=== PATIENT | male | born 1940 | race Caucasian/White ===

== ENCOUNTER 2020-08-12 12:53 | Emergency (ER) | payer MEDICARE, OTHER ==
[~2020-08-12] VITALS: Ht 172 cm; Wt 104.0 kg
--- NOTE | 2020-08-12 12:55 | ED General ---
General Stated Complaint: GEN WEAKNESS; VOMITING History of Present Illness Date Seen by Provider: Aug 12, 2020 Time Seen by Provider: 12:54 Initial Comments 80-year-old male presents with generalized weakness and vomiting. Patient has had generalized weakness for at least a year but reports is little bit worse today. Patient drinks daily but today he is already consumed half a "jug" patient also reports that earlier this morning he was out trimming trees. Patient had 1 episode of vomiting in route with EMS. He denies abdominal pain, no chest pain, focal weakness. No reports of fever cough or other systemic complaints. Allergies and Home Medications Allergies Coded Allergies: No Known Drug Allergies (Unverified , 08/12/20) Home Medications Ondansetron 4 Mg Tab.rapdis, 4 MG PO Q6H PRN for NAUSEA/VOMITING Prescribed by: SHANEKA ROCHA on 08/12/20 3030 Patient Home Medication List Home Medication List Reviewed: Yes Review of Systems Review of Systems Constitutional: see HPI; No chills, No fever; malaise, weakness EENTM: no symptoms reported Respiratory: no symptoms reported Cardiovascular: no symptoms reported Gastrointestinal: No abdominal pain; nausea, vomiting Genitourinary: no symptoms reported Musculoskeletal: see HPI Skin: no symptoms reported Psychiatric/Neurological: No Symptoms Reported Past Kteaoyv-Wfrntk-Ltxqfv Hx Past Med/Social Hx: Reviewed Nursing Past Med/Soc Hx Physical Exam Vital Signs Vital Signs - First Documented 08/12/20 12:53 Temp 35.3 Pulse 76 Resp 18 B/P (MAP) 165/79 (107) Pulse Ox 93 O2 Delivery Room Air Capillary Refill : Height, Weight, BMI Height: '" Weight: lbs. oz. 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 Progress/Results/Core Measures Suspected Sepsis SIRS Temperature: Pulse: Respiratory Rate: Laboratory Tests 08/12/20 12:56: White Blood Count 8.0 Blood Pressure / Mean: Laboratory Tests 08/12/20 12:56: Creatinine 0.96, Platelet Count 234, Total Bilirubin 1.6H Results/Orders Lab Results Laboratory Tests Test 08/12/20 12:56 Range/Units White Blood Count 8.0 4.3-11.0 10^3/uL Red Blood Count 4.19 L 4.35-5.85 10^6/uL Hemoglobin 14.8 13.3-17.7 G/DL Hematocrit 42 40-54 % Mean Corpuscular Volume 101 H 80-99 FL Mean Corpuscular Hemoglobin 35 H 25-34 PG Mean Corpuscular Hemoglobin Concent 35 32-36 G/DL Red Cell Distribution Width 12.5 10.0-14.5 % Platelet Count 234 130-400 10^3/uL Mean Platelet Volume 9.0 7.4-10.4 FL Immature Granulocyte % (Auto) 1 % Neutrophils (%) (Auto) 66 42-75 % Lymphocytes (%) (Auto) 24 12-44 % Monocytes (%) (Auto) 8 0-12 % Eosinophils (%) (Auto) 1 0-10 % Basophils (%) (Auto) 1 0-10 % Neutrophils # (Auto) 5.3 1.8-7.8 X 10^3 Lymphocytes # (Auto) 1.9 1.0-4.0 X 10^3 Monocytes # (Auto) 0.6 0.0-1.0 X 10^3 Eosinophils # (Auto) 0.1 0.0-0.3 10^3/uL Basophils # (Auto) 0.1 0.0-0.1 10^3/uL Immature Granulocyte # (Auto) 0.0 0.0-0.1 10^3/uL Sodium Level 139 135-145 MMOL/L Potassium Level 2.8 L 3.6-5.0 MMOL/L Chloride Level 100 98-107 MMOL/L Carbon Dioxide Level 22 21-32 MMOL/L Anion Gap 17 H 5-14 MMOL/L Blood Urea Nitrogen 4 L 7-18 MG/DL Creatinine 0.96 0.60-1.30 MG/DL Estimat Glomerular Filtration Rate > 60 BUN/Creatinine Ratio 4 Glucose Level 171 H 70-105 MG/DL Calcium Level 8.8 8.5-10.1 MG/DL Corrected Calcium 8.8 8.5-10.1 MG/DL Total Bilirubin 1.6 H 0.1-1.0 MG/DL Aspartate Amino Transf (AST/SGOT) 63 H 5-34 U/L Alanine Aminotransferase (ALT/SGPT) 35 0-55 U/L Alkaline Phosphatase 139 H 40-136 U/L Troponin I < 0.30 <0.30 NG/ML Total Protein 6.8 6.4-8.2 GM/DL Albumin 4.0 3.2-4.5 GM/DL Lipase 16 8-78 U/L Serum Alcohol 37 H <10 MG/DL My Orders Orders - ROCHA,SHANEKA L DO Cbc With Automated Diff (08/12/20 12:55) Comprehensive Metabolic Panel (08/12/20 12:55) Lipase (08/12/20 12:55) Acute Abd Series (08/12/20 12:55) Troponin I Fs (08/12/20 12:55) Ekg Tracing (08/12/20 12:55) Monitor-Rhythm Ecg Trace Only (08/12/20 12:55) Alcohol (08/12/20 12:55) Ondansetron Injection (Zofran Injectio (08/12/20 13:15) Lactated Ringers (Lr 1000 Ml Iv Solution (08/12/20 13:03) Famotidine Injection (Pepcid Injection) (08/12/20 13:03) Potassium Chloride (Tablet) (K Dur Table (08/12/20 13:45) Medications Given in ED Vital Signs/I&O 08/12/20 08/12/20 12:53 14:04 Temp 35.3 35.3 Pulse 76 72 Resp 18 18 B/P (MAP) 165/79 (107) 152/68 Pulse Ox 93 96 O2 Delivery Room Air Room Air Capillary Refill : Progress Note : Time: 13:45 Progress Note Patient with elevated alcohol level. Patient with low sodium, patient with generalized weakness but admits to not eating a lot and drinking daily. Patient symptoms likely a result of his chronic alcohol use. I recommended he follow-up with his primary care provider for further evaluation and treatment ECG Initial ECG Impression Date: Aug 12, 2020 Initial ECG Impression Time: 12:53 Initial ECG Rate: 70 Initial ECG Rhythm: Normal Sinus Initial ECG Intervals: VA (247) Initial ECG Impression: Nonspecific Changes Comment no acute finding, prolonged VA Diagnostic Imaging Diagonstic Imaging: Xray Plain Films/CT/US/NM/MRI: abdomen Comments ACUTE ABD SERIES INDICATION: Nausea, vomiting, increased generalized weakness. TECHNIQUE: Single-view chest with supine and upright radiographs of the abdomen. CORRELATION STUDY: None. FINDINGS: Heart size is enlarged. Mediastinum is prominent. However, no evidence for underlying vascular congestion. No pulmonary infiltrate. Surgical clips at the base of the neck on the right. Imaging of the abdomen is limited on technical basis. There does appear to be some gas within the stomach. A few gas-filled loops of small bowel in the central aspect of the abdomen. There does appear to be some gas within the colon. Surgical changes with hardware superimposed over the left aspect of L2 and L3 levels. Advanced degenerative changes of the lumbar spine with S-type scoliotic curvature present. Metallic rings in the right lower quadrant, likely reflective of prior inguinal hernia repair. IMPRESSION: 1. Cardiac enlargement without failure. 2. Prominent gas-filled loops of bowel within the left midabdomen may very well be reflective of underlying ileus pattern. Early or partial obstructive process is not completely excluded. If clinically warranted, short-term follow-up imaging is recommended for reassessment. Reviewed: Reviewed by Me, Reviewed/Discussed Departure Impression Primary Impression: Chronic alcohol use Additional Impressions: Hypokalemia Generalized weakness Disposition: HOME, SELF-CARE Condition: Stable Departure-Patient Inst. Patient Instructions: Generalized Weakness, Alcohol Use - When Is Drinking a Problem?, Alcohol Use Disorder ED, Hypokalemia Add. Discharge Instructions: Follow-up with your primary care provider and 2 to 3 days for continuation of care and recheck of today's symptoms Scripts Ondansetron (Ondansetron Odt) 4 Mg Tab.rapdis 4 MG PO Q6H PRN for NAUSEA/VOMITING, #20 TAB 0 Refills Prov: SHANEKA ROCHA DO 08/12/20 SHANEKA ROCHA DO Aug 12, 2020 12:55
[2020-08-12] MEDS ORDERED: FAMOTIDINE 20MG/2ML IV (PEPCID) IV STA (13:03)
[2020-08-12] MEDS ORDERED: LACTATED RINGERS 1,000 ML IV STA (13:03)
[2020-08-12 13:10] LABS: BASOPHILS # (AUTO) 0.1 10^3/uL (0.0-0.1); BASOPHILS % (AUTO) 1 % (0-10); EOSINOPHILS # (AUTO) 0.1 10^3/uL (0.0-0.3); EOSINOPHILS % (AUTO) 1 % (0-10); HEMATOCRIT 42 % (40-54); HEMOGLOBIN 14.8 G/DL (13.3-17.7); LYMPHOCYTES # (AUTO) 1.9 X 10^3 (1.0-4.0); LYMPHOCYTES % (AUTO) 24 % (12-44); MEAN CORPUSCULAR HEMOGLOBIN 35 PG (25-34); MEAN CORPUSCULAR HGB CONC 35 G/DL (32-36); MEAN CORPUSCULAR VOLUME 101 FL (80-99); MONOCYTES # (AUTO) 0.6 X 10^3 (0.0-1.0); MONOCYTES % (AUTO) 8 % (0-12); NEUTROPHILS # (AUTO) 5.3 X 10^3 (1.8-7.8); NEUTROPHILS % (AUTO) 66 % (42-75); PLATELET COUNT 234 10^3/uL (130-400)
[2020-08-12] MEDS ORDERED: ONDANSETRON 4 MG/2 ML (SDV) Z0FRAN IVP ONE (13:15)
[2020-08-12 13:26] LABS: CARBON DIOXIDE 22 MMOL/L (21-32); CHLORIDE 100 MMOL/L (98-107); POTASSIUM 2.8 MMOL/L (3.6-5.0); SODIUM 139 MMOL/L (135-145)
[2020-08-12 13:27] LABS: ALANINE AMINOTRANSFERASE 35 U/L (0-55); ALKALINE PHOSPHATASE 139 U/L (40-136); BILIRUBIN,TOTAL 1.6 MG/DL (0.1-1.0); BUN/CREATININE RATIO 4; CALCIUM 8.8 MG/DL (8.5-10.1); CREATININE SERUM 0.96 MG/DL (0.60-1.30); GFR ESTIMATED > 60; GLUCOSE 171 MG/DL (70-105); LIPASE 16 U/L (8-78); TOTAL PROTEIN 6.8 GM/DL (6.4-8.2)
--- NOTE | 2020-08-12 13:32 | Diagnostic Imaging Report ---
INDICATION: Nausea, vomiting, increased generalized weakness. TECHNIQUE: Single-view chest with supine and upright radiographs of the abdomen. CORRELATION STUDY: None. FINDINGS: Heart size is enlarged. Mediastinum is prominent. However, no evidence for underlying vascular congestion. No pulmonary infiltrate. Surgical clips at the base of the neck on the right. Imaging of the abdomen is limited on technical basis. There does appear to be some gas within the stomach. A few gas-filled loops of small bowel in the central aspect of the abdomen. There does appear to be some gas within the colon. Surgical changes with hardware superimposed over the left aspect of L2 and L3 levels. Advanced degenerative changes of the lumbar spine with S-type scoliotic curvature present. Metallic rings in the right lower quadrant, likely reflective of prior inguinal hernia repair. IMPRESSION: 1. Cardiac enlargement without failure. 2. Prominent gas-filled loops of bowel within the left midabdomen may very well be reflective of underlying ileus pattern. Early or partial obstructive process is not completely excluded. If clinically warranted, short-term follow-up imaging is recommended for reassessment. Dictated by: Dictated on workstation # [id number]
[2020-08-12] MEDS ORDERED: KCL 20 MEQ TAB (K-DUR) PO ONE (13:45)
[2020-08-12] MEDS ORDERED: METOCLOPRAMIDE INJ 10 MG/2 ML (REGLAN) IVP STA (13:55)
[2020-08-12] MEDS ORDERED: ONDA4TAB11 PO (13:57)
[2020-08-12 14:04] VITALS: BP 152/68
== END 2020-08-12 13:50 | disposition home or self-care (01) ==
LOC: EDUNIT# 12:53 → ER FS 12:57
DX: E87.6 Hypokalemia (principal); R53.1 Weakness; E66.9 Obesity, unspecified; Z72.89 Other problems related to lifestyle
CPT/HCPCS: 36415; 74022; 80053; 83690; 84484; 85025; 93041; G0480; 80320; 93005

== ENCOUNTER 2020-08-13 08:55 | Emergency (ER) | payer MEDICARE, OTHER ==
[~2020-08-13] VITALS: Ht 175 cm; Wt 99.7 kg
[~2020-08-13 08:55] MED LIST: ONDA4TAB11 PO
--- NOTE | 2020-08-13 09:14 | ED General ---
General Stated Complaint: WEAKNESS Source of Information: Patient Exam Limitations: No Limitations History of Present Illness Date Seen by Provider: Aug 13, 2020 Time Seen by Provider: 09:00 Initial Comments Patient is a 80-year-old male who presents to the emergency department today with a chief complaint of feeling dizzy, lightheaded and off-balance. He complains of generalized weakness and inability to ambulate without feeling like he might fall. Patient states that the symptoms have been coming on for the last several days up to a month. He was seen at [facility] yesterday. His states that his alcohol level was a little bit high and his potassium was little bit low. She states he got some fluids and a little potassium replacement but was not much better on discharge. She states he actually had to crawl to a chair from their front door after he made up the steps. He has been sitting in the chair ever since. He denies feeling short of breath or chest pain. He states occasionally he feels a little chest "tightness". He denies fevers chills cough or congestion. No abdominal pain, nausea, vomiting or diarrhea. No black or bloody stools. He states that he drinks daily blackberry isac. He drinks what sounds like up to a pint a day. He has been doing this for a couple of months. Patient denies any real depressive thoughts but seems sad about the fact that he is not as active as he used to be. He takes medicines for hypothyroidism as well as hypertension and high c holesterol. His primary care physician is in [facility]. The patient states that he sees him every 6 months and his next visit is in September. All other review of systems reviewed and negative except as stated above. Timing/Duration: Constant, Getting Worse Severity: Severe Modifying Factors: worse with Movement; improves with Rest Associated Systoms: Loss of Appetite, Nausea/Vomiting (Vomiting this morning) Allergies and Home Medications Allergies Coded Allergies: No Known Drug Allergies (Unverified , 08/12/20) Home Medications Ondansetron 4 Mg Tab.rapdis, 4 MG PO Q6H PRN for NAUSEA/VOMITING Prescribed by: SHANEKA ROCHA on 08/12/20 0315 Patient Home Medication List Home Medication List Reviewed: Yes Review of Systems Review of Systems Constitutional: see HPI EENTM: no symptoms reported Respiratory: no symptoms reported Cardiovascular: chest pain (Occasional "chest tightness") Gastrointestinal: nausea, vomiting Genitourinary: no symptoms reported Musculoskeletal: no symptoms reported Skin: no symptoms reported All Other Systems Reviewed Negative Unless Noted: Yes Past Kuyyvtd-Pvpsdh-Ymmess Hx Patient Social History Alcohol Beverage of Choice: Whiskey Type Used: Smokeless Tobacco 2nd Hand Smoke Exposure: No Recent Hopitalizations: No Seasonal Allergies Seasonal Allergies: No Past Medical History Surgeries: Yes (SHOULDER, FOOT, KNEE SX, INGUINAL HERNIA REPAIR) Orthopedic, Thyroidectomy, Tonsillectomy Respiratory: No Cardiac: No Neurological: Yes Stroke Genitourinary: No Gastrointestinal: No Musculoskeletal: No Endocrine: No HEENT: No Cancer: No Psychosocial: No Integumentary: No Blood Disorders: No Physical Exam Vital Signs Vital Signs - First Documented 08/13/20 09:00 Temp 36.6 Pulse 60 Resp 12 B/P (MAP) 151/70 (97) Pulse Ox 95 O2 Delivery Room Air Capillary Refill : Height, Weight, BMI Height: '" Weight: lbs. oz. 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 Norm as Tested, Other (No asterixis is noted; ataxia is noted with the left leg [id number] and past-pointing with the left hand [id number]) Skin: Normal Color, Warm/Dry Progress/Results/Core Measures Suspected Sepsis SIRS Temperature: Pulse: Respiratory Rate: Laboratory Tests 08/13/20 09:04: White Blood Count 14.7H Blood Pressure / Mean: Laboratory Tests 08/13/20 09:04: Creatinine 1.04, Platelet Count 213, Total Bilirubin 4.5#H 08/13/20 10:18: INR Comment 1.1 Results/Orders Lab Results Laboratory Tests Test 08/13/20 09:04 08/13/20 09:23 08/13/20 10:18 Range/Units White Blood Count 14.7 H 4.3-11.0 10^3/uL Red Blood Count 4.06 L 4.30-5.52 10^6/uL Hemoglobin 14.4 13.3-17.7 g/dL Hematocrit 41 40-54 % Mean Corpuscular Volume 101 H 80-99 fL Mean Corpuscular Hemoglobin 36 H 25-34 pg Mean Corpuscular Hemoglobin Concent 35 32-36 g/dL Red Cell Distribution Width 12.2 10.0-14.5 % Platelet Count 213 130-400 10^3/uL Mean Platelet Volume 10.0 9.0-12.2 fL Immature Granulocyte % (Auto) 1 % Neutrophils (%) (Auto) 87 H 42-75 % Lymphocytes (%) (Auto) 5 L 12-44 % Monocytes (%) (Auto) 7 0-12 % Eosinophils (%) (Auto) 0 0-10 % Basophils (%) (Auto) 0 0-10 % Neutrophils # (Auto) 12.8 H 1.8-7.8 10^3/uL Lymphocytes # (Auto) 0.8 L 1.0-4.0 10^3/uL Monocytes # (Auto) 1.0 0.0-1.0 10^3/uL Eosinophils # (Auto) 0.0 0.0-0.3 10^3/uL Basophils # (Auto) 0.0 0.0-0.1 10^3/uL Immature Granulocyte # (Auto) 0.1 0.0-0.1 10^3/uL Neutrophils % (Manual) 87 % Lymphocytes % (Manual) 4 % Monocytes % (Manual) 5 % Eosinophils % (Manual) 0 % Basophils % (Manual) 0 % Band Neutrophils 4 % Blood Morphology Comment NORMAL Sodium Level 139 135-145 MMOL/L Potassium Level 3.5 L 3.6-5.0 MMOL/L Chloride Level 101 98-107 MMOL/L Carbon Dioxide Level 25 21-32 MMOL/L Anion Gap 13 5-14 MMOL/L Blood Urea Nitrogen 6 L 7-18 MG/DL Creatinine 1.04 0.60-1.30 MG/DL Estimat Glomerular Filtration Rate > 60 BUN/Creatinine Ratio 6 Glucose Level 145 H 70-105 MG/DL Calcium Level 8.9 8.5-10.1 MG/DL Corrected Calcium 9.1 8.5-10.1 MG/DL Total Bilirubin 4.5 #H 0.1-1.0 MG/DL Aspartate Amino Transf (AST/SGOT) 48 H 5-34 U/L Alanine Aminotransferase (ALT/SGPT) 32 0-55 U/L Alkaline Phosphatase 99 40-136 U/L Total Protein 6.6 6.4-8.2 GM/DL Albumin 3.8 3.2-4.5 GM/DL TSH [place] Testing 4.26 0.35-4.94 UIU/ML Urine Color YELLOW Urine Clarity CLEAR Urine pH 6.0 5-9 Urine Specific Bouse 1.020 1.016-1.022 Urine Protein 1+ H NEGATIVE Urine Glucose (UA) NEGATIVE NEGATIVE Urine Ketones TRACE H NEGATIVE Urine Nitrite NEGATIVE NEGATIVE Urine Bilirubin NEGATIVE NEGATIVE Urine Urobilinogen 1.0 < = 1.0 MG/DL Urine Leukocyte Esterase NEGATIVE NEGATIVE Urine RBC (Auto) NEGATIVE NEGATIVE Urine RBC RARE /HPF Urine WBC 2-5 /HPF Urine Squamous Epithelial Cells 0-2 /HPF Urine Crystals PRESENT H /LPF Urine Amorphous Sediment FEW SHEELA URATES H /LPF Urine Bacteria TRACE /HPF Urine Casts NONE /LPF Urine Mucus SMALL H /LPF Urine Culture Indicated NO Prothrombin Time 14.2 12.2-14.7 SEC INR Comment 1.1 0.8-1.4 Activated Partial Thromboplast Time 28 24-35 SEC My Orders Orders - TRESSA MELTON MD Cbc With Automated Diff (08/13/20 09:15) Comprehensive Metabolic Panel (08/13/20 09:15) Ua Culture If Indicated (08/13/20 09:15) Ct Head Wo (08/13/20 09:15) Thyroid Analyzer (08/13/20 09:15) Manual Differential (08/13/20 09:04) Protime With Inr (08/13/20 10:12) Partial Thromboplastin Time (08/13/20 10:12) Vital Signs/I&O 08/13/20 08/13/20 09:00 09:18 Temp 36.6 Pulse 60 58 66 82 Resp 12 B/P (MAP) 151/70 (97) 138/65 (89) 159/80 (106) 155/92 (113) Pulse Ox 95 O2 Delivery Room Air Capillary Refill : Progress Note : Time: 10:14 Progress Note Notified by radiologist of the positive findings of the CT brain without contrast with acute right-sided cerebellar hemorrhage extending into the fourth ventricle. Plans will be made to transfer for the patient possibly to [facility]. 1035 Case discussed with at 1027. Patient's requested as opposed to [facility]. Awaiting disposition/call back from . Diagnostic Imaging Diagonstic Imaging: CT Plain Films/CT/US/NM/MRI: head Comments [facility] [place], [place] NAME: SHEYLA WORLEY REC#: [id number] PT STATUS: REG ER : 1940 PHYSICIAN: TRESSA MELTON MD ADMIT DATE: 08/13/20/ER Draft Date of Exam:08/13/20 CT HEAD WO PROCEDURE: CT head without contrast. TECHNIQUE: Multiple contiguous axial images were obtained through the brain without the use of intravenous contrast. Auto Exposure Controls were utilized during the CT exam to meet ALARA standards for radiation dose reduction. INDICATION: 80-year-old male, off balance, left-sided headache, dizziness, unsteady on feet. CORRELATION STUDY: None FINDINGS: There is presence of acute hemorrhage interposed between the cerebellar hemispheres and into the 4th ventricle. More focal extension of blood into the superior medial aspect of the left cerebellum may reflect acute intraparenchymal hemorrhage with extension into the 4th ventricle. Amount of hemorrhage measures approximately 3 cm x 1.5 cm in the axial plane by 1.8 cm craniocaudal. Lateral and 3rd ventricles appearing unremarkable and no overt hydrocephalus is suggested at this time. There are generalized atrophic changes with prominence of ventricles and sulci. Scattered areas decreased attenuation likely reflect small vessel ischemic disease. No definitive regional area of edema. Trace mucosal thickening in a few of the paranasal sinuses. No air-fluid level. Bony calvarium intact. IMPRESSION: 1. Acute posterior fossa hemorrhage. May originate within the right cerebellum with extension into the 4th ventricle. No evidence for hydrocephalus at this time. Critical findings Telephone call made to the emergency department, 9:55 AM. Dictated on workstation # [id number] Dict: 08/13/20 0953 Trans: 08/13/20 1002 [facility] [id number] Interpreted by: NATHANIEL,LINSEY K DO Electronically signed by: Departure Impression Primary Impression: Intracerebellar and posterior fossa hemorrhage Disposition: 02 XFER SHT-TRM HOSP Condition: Stable Transfer Transfer Reason: Exceeds level of care Time Spoke to Accepting Phy: 11:35 Transfer Progress Notes Case discussed with transfer center, accepting physician Dr. Chung. Transfer Facility: [facility] Method of Transfer: Air Departure-Patient Inst. Referrals: NO,LOCAL PHYSICIAN (PCP/Family) Primary Care Physician TRESSA MELTON MD Aug 13, 2020 09:14
[2020-08-13 09:18] VITALS: BP_SYST 138; BP_SYST 155; BP_SYST 159; BP_DIAS 65; BP_DIAS 80; BP_DIAS 92
[2020-08-13 09:28] LABS: BASOPHILS % (AUTO) 0 % (0-10); EOSINOPHILS % (AUTO) 0 % (0-10); HEMATOCRIT 41 % (40-54); HEMOGLOBIN 14.4 g/dL (13.3-17.7); LYMPHOCYTES # (AUTO) 0.8 10^3/uL (1.0-4.0); LYMPHOCYTES % (AUTO) 5 % (12-44); MEAN CORPUSCULAR HEMOGLOBIN 36 pg (25-34); MEAN CORPUSCULAR HGB CONC 35 g/dL (32-36); MEAN CORPUSCULAR VOLUME 101 fL (80-99); MONOCYTES % (AUTO) 7 % (0-12); NEUTROPHILS # (AUTO) 12.8 10^3/uL (1.8-7.8); NEUTROPHILS % (AUTO) 87 % (42-75); PLATELET COUNT 213 10^3/uL (130-400); WHITE BLOOD COUNT 14.7 10^3/uL (4.3-11.0)
[2020-08-13 09:29] LABS: BILIRUBIN,URINE NEGATIVE (NEGATIVE); CLARITY,URINE CLEAR; COLOR,URINE YELLOW; GLUCOSE, URINE (UA) NEGATIVE (NEGATIVE); KETONES,URINE TRACE (NEGATIVE); LEUKOCYTE ESTERASE ,URINE NEGATIVE (NEGATIVE); NITRITE,URINE NEGATIVE (NEGATIVE); PROTEIN,URINE 1+ (NEGATIVE)
[2020-08-13 09:35] LABS: ALBUMIN 3.8 GM/DL (3.2-4.5); CHLORIDE 101 MMOL/L (98-107); POTASSIUM 3.5 MMOL/L (3.6-5.0); SODIUM 139 MMOL/L (135-145)
[2020-08-13 09:36] LABS: CALCIUM 8.9 MG/DL (8.5-10.1)
[2020-08-13 09:37] LABS: GLUCOSE 145 MG/DL (70-105)
[2020-08-13 09:38] LABS: TOTAL PROTEIN 6.6 GM/DL (6.4-8.2)
[2020-08-13 09:39] LABS: BILIRUBIN,TOTAL 4.5 MG/DL (0.1-1.0); CARBON DIOXIDE 25 MMOL/L (21-32)
[2020-08-13 09:41] LABS: ALKALINE PHOSPHATASE 99 U/L (40-136); CREATININE SERUM 1.04 MG/DL (0.60-1.30); GFR ESTIMATED > 60
[2020-08-13 09:42] LABS: BUN/CREATININE RATIO 6
[2020-08-13 09:43] LABS: AMORPHOUS SEDIMENT,UR FEW AMOR URATES /LPF; BACTERIA,URINE TRACE /HPF; RBC,URINE RARE /HPF; SQUAMOUS EPITHELIAL CELL,UR 0-2 /HPF
[2020-08-13 09:44] LABS: ALANINE AMINOTRANSFERASE 32 U/L (0-55)
--- NOTE | 2020-08-13 10:03 | Diagnostic Imaging Report ---
PROCEDURE: CT head without contrast. TECHNIQUE: Multiple contiguous axial images were obtained through the brain without the use of intravenous contrast. Auto Exposure Controls were utilized during the CT exam to meet ALARA standards for radiation dose reduction. INDICATION: 80-year-old male, off balance, left-sided headache, dizziness, unsteady on feet. CORRELATION STUDY: None FINDINGS: There is presence of acute hemorrhage interposed between the cerebellar hemispheres and into the 4th ventricle. More focal extension of blood into the superior medial aspect of the left cerebellum may reflect acute intraparenchymal hemorrhage with extension into the 4th ventricle. Amount of hemorrhage measures approximately 3 cm x 1.5 cm in the axial plane by 1.8 cm craniocaudal. Lateral and 3rd ventricles appearing unremarkable and no overt hydrocephalus is suggested at this time. There are generalized atrophic changes with prominence of ventricles and sulci. Scattered areas decreased attenuation likely reflect small vessel ischemic disease. No definitive regional area of edema. Trace mucosal thickening in a few of the paranasal sinuses. No air-fluid level. Bony calvarium intact. IMPRESSION: 1. Acute posterior fossa hemorrhage. May originate within the right cerebellum with extension into the 4th ventricle. No evidence for hydrocephalus at this time. Critical findings Telephone call made to the emergency department, 9:55 AM. Dictated by: Dictated on workstation # [id number]
[2020-08-13 10:10] LABS: BAND NEUTROPHILS 4 %; BASOPHILS % (MANUAL) 0 %; EOSINOPHILS % (MANUAL) 0 %; LYMPHOCYTES % (MANUAL) 4 %; MONOCYTES % (MANUAL) 5 %; NEUTROPHILS % (MANUAL) 87 %; RBC MORPH NORMAL
[2020-08-13 10:11] LABS: TSH (THYROID ANALYZER) 4.26 UIU/ML (0.35-4.94)
[2020-08-13 10:34] LABS: INR 1.1 (0.8-1.4); PROTHROMBIN TIME PATIENT 14.2 SEC (12.2-14.7)
[2020-08-13 12:09] VITALS: BP 137/68
== END 2020-08-13 12:19 | disposition short-term general hospital (02) ==
LOC: EDUNIT# 08:55 → ER 08:57
DX: I61.4 Nontraumatic intracerebral hemorrhage in cerebellum (principal); E66.9 Obesity, unspecified; Z68.35 Body mass index [BMI] 35.0-35.9, adult; Z86.73 Personal history of transient ischemic attack (TIA), and cerebral infarction without residual deficits
CPT/HCPCS: 36415; 70450; 80053; 81000; 84443; 85007; 85027; 85610; 85730

== ENCOUNTER 2020-08-18 12:30 | Inpatient (IN) | payer MEDICARE, OTHER ==
[~2020-08-18] VITALS: Ht 172.7 cm; Wt 96.5 kg
[~2020-08-18 12:30] MED LIST changes: +ALPRAZolam 0.25 MG (XANAX) TAB PO PRN; +AMLO-250 PO; +ASCO500T17 PO; +ATOR40TA70 PO; +BISACODYL 10 MG SUPP (DULCOLAX) PR PRN; +CALCIUM CARBONATE 500 MG (TUMS) TAB.CHEW PO PRN; +CHOL100048 PO; +CYAN500T8 PO; +DOCUSATE SODIUM 100 MG (COLACE) CAP PO PRN; +FLEET ENEMA ADULT 1 EA BTL PR PRN; +FOLI1TAB33 PO; +GABA600T PO; +GLUC1CAP37 PO; +HYDR25TA4 PO; +HYDROcodone/APAP 5 MG/325 MG (LORTAB) TAB PO PRN; +LACTULOSE SYRUP 10GM/15ML (ENULOSE) 30ML UDC PO PRN; +LEVO100T PO; +LOPERAMIDE 2 MG (IMODIUM) TABLET PO PRN; +MELATONIN 3 MG TABLET PO PRN; +MULT-1136 PO; +ONDANSETRON 4 MG (ZOFRAN) ORAL DISSOLVE TAB PO PRN; +POTA99TA17 PO; +VITA1TAB17 PO; +diphenhydrAMINE 25 MG TAB (BENADRYL) PO PRN; +guaiFENesin/CODEINE (ROBITUSSIN AC) 10ML UDC PO PRN
--- NOTE | 2020-08-18 12:45 | PM&R Post Admission Assessment ---
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 This progressively worsened with nausea and double vision so he presented to the hospital revealed a small right cerebral hemorrhage with extension to the fourth ventricles measuring 3.8 cm x 1.5 cm. Neurosurgery evaluated him along with MRI on 08/16/2020 and noted no expansion of the bleeding. He was assessed to be in need of improvement in ambulatory skills and independent ADLs. He has a history of chewing tobacco and drinking 1 L of isac per day and his last drink was 08/12/2020. Currently his is at the bedside and help transport him from and an uneventful transportation process. He is retired from [employer] for [employer] most recently the [employer]. He does have a history of thyroid cancer status post thyroidectomy. Past Blgumpt-Cknujr-Otjqon Hx Past Med/Social Hx: Reviewed Nursing Past Med/Soc Hx, Reviewed and Corrections made Patient Social History Marrital Status: Employed/Student: retired Alcohol Use: Regular Use Alcohol Beverage of Choice: Whiskey Type Used: Smokeless Tobacco 2nd Hand Smoke Exposure: No Recent Hopitalizations: No Seasonal Allergies Seasonal Allergies: No Past Medical History Surgeries: Orthopedic, Thyroidectomy, Tonsillectomy Neurological: Stroke History of Blood Disorders: No PM&R Allergy/Meds/Data Review Allergies Coded Allergies: No Known Drug Allergies (Unverified , 08/12/20) Home Medications Scheduled Amlodipine Besylate (Amlodipine Besylate), 5 MG PO DAILY, (Reported) Ascorbic Acid (Vitamin C), 500 MG PO HS, (Reported) Atorvastatin Calcium (Atorvastatin Calcium), 40 MG PO DAILY, (Reported) Cholecalciferol (Vitamin D3) (Vitamin D3), 25 MCG PO HS, (Reported) Cyanocobalamin (Vitamin B-12) (Vitamin B-12), 500 MCG PO DAILY, (Reported) Folic Acid (Folic Acid), 1 MG PO DAILY, (Reported) Gabapentin (Neurontin), 600 MG PO BID, (Reported) Gluc[place] 2Kcl/Chondroitin Grande (Glucosamine & Chondroitin Cap), 1 EACH PO HS, (Reported) Hydrochlorothiazide (Hydrochlorothiazide), 12.5 MG PO DAILY, (Reported) Levothyroxine Sodium (Synthroid), 100 MCG PO DAILY, (Reported) Multivitamin (Multivitamin), 1 EACH PO HS, (Reported) Potassium Gluconate (Potassium Gluconate 595 MG), 99 MG PO BID, (Reported) Vitamin B Complex (Vitamin B Complex), 1 EACH PO HS, (Reported) Discontinued Medications Ondansetron (Ondansetron Odt), 4 MG PO Q6H PRN for NAUSEA/VOMITING Discontinued Reason: Referral/FU Appt-Addtl Current Medications Current Medications Reviewed Review of Systems Constitutional: see HPI, malaise, weakness EENTM: no symptoms reported Respiratory: no symptoms reported Cardiovascular: no symptoms reported Gastrointestinal: no symptoms reported Genitourinary: no symptoms reported Musculoskeletal: no symptoms reported Skin: no symptoms reported Psychiatric/Neurological: Numbness, Paresthesia, Weakness All Other Systems Reviewed Negative Unless Noted: Yes Physical Exam Physical Exam Vital Signs Capillary Refill : Height, Weight, BMI Height: '" Weight: lbs. oz. kg; 32.00 BMI Method: General Appearance: No Apparent Distress, WD/WN, Chronically ill, Obese Eyes: Bilateral Eye Normal Inspection, Bilateral Eye PERRL HEENT: PERRL/EOMI, Normal ENT Inspection, Pharynx Normal Neck: Full Range of Motion, Normal Inspection, Non Tender, Supple, Carotid Bruit Respiratory: Chest Non Tender, Lungs Clear, Normal Breath Sounds, No Accessory Muscle Use, No Respiratory Distress Cardiovascular: Regular Rate, Rhythm, No Edema, No Gallop, No JVD, No Murmur, Normal Peripheral Pulses Gastrointestinal: Normal Bowel Sounds, No Organomegaly, No Pulsatile Mass, Non Tender, Soft Back: Normal Inspection, No CVA Tenderness, No Vertebral Tenderness Extremity: Normal Capillary Refill, Normal Inspection, Normal Range of Motion, Non Tender, No Calf Tenderness, No Pedal Edema Neurologic/Psychiatric: Alert, Oriented x3, Normal Mood/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, 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 Norm as Tested, Abnormal Gait, Motor Weakness (Generalized weakness) Skin: Normal Color, Warm/Dry Lymphatic: No Adenopathy PM&R Medical Assessment & Plan REHAB/MEDICAL ASSESSMENT AND PLAN: REHAB IMPAIRMENT GROUP: Hemorrhagic stroke ETIOLOGIC DIAGNOSIS: Hemorrhagic stroke The comorbidities that impact the patients function and/or functional outcome by: Significant alcoholism, chewing tobacco use, advanced age, high risk for falls REHAB PLAN: The patient is being admitted to our comprehensive inpatient rehabilitation facility and can tolerate the intensity of service consisting of at least: 180 minutes of therapy a day, 5 out of 7 days a week Rehab treatment will consist of: PT and OT will focus on regaining function and ambulatory skills with increasing ADL independence in order to return to independent living at home with his The patient/family has a good understanding of our discharge process and will benefit from an interdisciplinary inpatient rehabilitation program. The patient has potential to make improvement and is in need of at least two of the following multidisciplinary therapies including but not limited to physical, occupational, speech, and prosthetics and orthotics. Additionally the patient will need services from respiratory, nutritional services, wound care, psychology, etc. (Customize this to each patient). Given the patients complex condition and risk of further medical complications, rehabilitation services cannot be safely or effectively provided at a lower level of care such as a halfway facility. BARRIERS TO DISCHARGE: Alcoholism ESTIMATED LOS: 7 days DISPOSITION: Home RELEVANT CHANGES SINCE PREADMISSION SCREENING: I have compared the patients medical and functional status at the time of the preadmission screening and there are: no changes PROGNOSIS: Good REHABILITATION GOALS: 1. PT and OT will focus on regaining function and ambulatory skills with increasing ADL independence in order to return to independent living at home with his All the above goals were reviewed with the patient and he/she is in agreement. By signing this document, I acknowledge that I have personally performed a full physical examination on this patient within 24 hours of admission to this inpatient rehabilitation facility and have determined the patient to be able to tolerate the above course of treatment at an intensive level for a reasonable period of time. I will be completing a detailed individualized Plan of Care for this patient by day #4 of the patients stay based upon the Preadmission Screen, the Post-Admission Evaluation, and the therapy evaluations. Admission Dx/Comorbidities: (1) CVA (cerebral vascular accident) ICD Codes: I63.9 - Cerebral infarction, unspecified (2) Hypothyroidism ICD Codes: E03.9 - Hypothyroidism, unspecified (3) Intracerebellar and posterior fossa hemorrhage Status: Acute ICD Codes: I61.4 - Nontraumatic intracerebral hemorrhage in cerebellum; I61.8 - Other nontraumatic intracerebral hemorrhage (4) Chronic alcohol use Status: Acute ICD Codes: Z72.89 - Other problems related to lifestyle (5) Generalized weakness Status: Acute ICD Codes: R53.1 - Weakness Assessment/Plan Assessment and Plan Assess & Plan/Chief Complaint Assessment: Hemorrhagic stroke Generalized weakness Alcoholism Hypothyroidism Oral tobacco use Advanced age Fall risk Plan: Inpatient rehab protocol Monitor labs Home meds Fall risk CARMEN SALINAS DO Aug 18, 2020 12:45
[2020-08-18] MEDS: polyethylene glycoL POWDER 17 GM (MIRALAX) PACK PO SCH ×2 (13:02→20:49)
[2020-08-18] MEDS: SENNA W/DOCUSATE (SENOKOT S) TABLET PO SCH ×2 (13:02→20:49)
[2020-08-18] MEDS: DOCUSATE SODIUM 100 MG (COLACE) CAP PO SCH ×2 (13:02→20:49)
[2020-08-18 13:03] VITALS: BP 160/83
--- NOTE | 2020-08-18 13:35 | Physical Therapy Evaluation ---
PT Evaluation-General Medical Diagnosis Admission Date Aug 18, 2020 at 12:30 Medical Diagnosis: Right cerebellar hemorrhage Onset Date: Aug 18, 2020 Therapy Diagnosis Therapy Diagnosis: weakness; abnormal gait Precautions Precautions/Isolations: Fall Prevention, Standard Precautions Referral Physician: Stella Reason for Referral: Evaluation/Treatment Medical History Pertinent Medical History: CVA, HTN, Hypothroidism Additional Medical History Drinks 1 pt to 1 liter of isac a day Current History Intracerebral hemorrhage of cerebellum 08/12/20. Reviewed History: Yes Social History Home: Multilevel (resides only on the main level) Current Living Status: Spouse Entry Into Home: Stairs With Railing PT Steps Into Home: 5 Prior Prior Level of Function SCALE: Activities may be completed with or without assistive devices. 7-Paxjkwzuge-usulimg completes the activity by him/herself with no assistance from a helper. 5-Set-up or Clean-up Assistance-helper sets up or cleans up; patient completes activity. [place] assists only prior to or following the activity. 4-Supervision or Touching Assistance-helper provides verbal cues and/or touching/steadying and/or contact guard assistance as patient completes activity. Assistance may be provided throughout the activity or intermittently. 3-Partial/Moderate Assistance-helper does LESS THAN HALF the effort. [place] lifts, holds or supports trunk or limbs, but provides less than half the effort. 2-Substantial/Maximal Assistance-helper does MORE THAN HALF the effort. [place] lifts or holds trunk or limbs and provides more than half the effort. 3-Fwrychtwp-jjygfj does ALL the effort. Patient does none of the effort to complete the activity. Or, the assistance of 2 or more helpers is required for the patient to complete the activity. If activity was not attempted, code reason: 7-Patient Refused. 9-Not Applicable-not attempted and the patient did not perform the activity before the current illness, exacerbation or injury. 10-Not Attempted due to Environmental Limitations-(lack of equipment, weather restraints, etc.). 88-Not Attempted due to Medical Conditions or Safety Concerns. Bed Mobility: 6 Transfers (B,C,W/C): 6 Gait: 6 Stairs: 6 Indoor Mobility (Ambulation): Independent Stairs: Independent Prior Device Use: Has a cane, but does not use. Independent, drives, community ambulator. PT Evaluation-Current Subjective Agrees to PT. Reports no specific complaints this date. Objective Patient Orientation: Person, Place, Time, Situation ROM/Strength ROM Lower Extremities WNL Strength Lower Extremities BLE strength grossly 3/5 throughout. Integumentary/Posture Integumentary Refer to nursing assessment. Bowel Incontinence: No Bladder Incontinence: No Posture normal and symmetrical Neuromuscular (Tone, Coordination, Reflexes) intact and functional Sensory Vision: Functional Hearing: Functional Hand Dominance: Right Sensation Right Lower Extremit: Intact Sensation Left Lower Extremity: Intact Transfers Roll Left & Right (QC): 4 Sit to Lying (QC): 4 Lying to Sitting/Side of Bed(Q: 4 Sit to Stand (QC): 3 (min assist and cues forhand placment. ) Chair/Ukj-tf-Qzsib Xfer(QC): 3 (unsteady and min assist for balance. ) Toilet Transfer (QC): 3 Car Transfer (QC): 4 Gait Does the Patient Walk?: Yes Mode of Locomotion: Walk Walk 10 feet (QC): 3 Walk 50 ft with 2 Turns(QC): 3 Walk 150 ft (QC): 3 Walking 10ft/uneven surface-QC: 3 Gait Assistive Device: FWW Comments/Gait Description Min assist with gait due to unsteady nature and decreased balacne; min assist to maintain balance. Wheelchair Training Does the Pt Use a Wheelchair?: No Wheel 50 ft with 2 turns (QC): 9 Wheel 150 ft (QC): 9 Stairs 1 Step (curb) (QC): 88 4 Steps (QC): 88 12 Steps (QC): 88 (will assess later today) Balance Sitting Static: Normal Sitting Dynamic: Normal Standing Static: Fair Standing Dynamic: Fair Picking up an Object (QC): 88 Treatment Functional mobility training to include bed mobility, transfers and gait. Min assist with upright mobility due to balance deficits and LOB noted in gait and with turning. Assessment/Needs Post brain hemorrhage with noted decreased functional balance, decreased gross strength and need for assist with transfers and gait to progress mobility to a mod indep level. He is unsteady on his feet with noted LoB episodes, requiring min assist. He does follow cues well and is interactive with therapy services. He will benefit from skilled PT to address his deficits to allow him to return home with his . Rehab Potential: Good PT Short Term Goals Short Term Goals Time Frame: Aug 25, 2020 Roll Left & Right: 6 Sit to lyin Lying to sitting on side of be: 6 Sit to stand: 4 Chair/kbn-sy-fsbch transfer: 4 Walk 150 feet: 4 PT Director Of Social Services Goals Director Of Social Services Goals PT Director Of Social Services Goals Time Frame: Sep 08, 2020 Roll Left & Right (QC): 6 Sit to Lying (QC): 6 Lying-Sitting on Side/Bed(QC): 6 Sit to Stand (QC): 6 Chair/Kbw-rz-Dqhzw Xfer(QC): 6 Toilet Transfer (QC): 6 Car Transfer (QC): 6 Does the Patient Walk: Yes Walk 10 feet (QC): 6 Walk 50ft with 2 Turns (QC): 6 Walk 150 ft (QC): 6 Walking 10ft on Uneven Surface: 6 1 Step (curb) (QC): 6 4 Steps (QC): 6 12 Steps (QC): 4 Picking up an Object (QC): 4 Does the Pt use WC or Scooter?: No Wheel 50 feet with 2 turns (QC: 9 Wheel 150 feet: 9 PT Plan Problem List Problem List: Activity Tolerance, Functional Strength, Safety, Balance, Gait, Transfer, Bed Mobility Treatment/Plan Treatment Plan: Continue Plan of Care Treatment Plan: Bed Mobility, Education, Functional Activity Danay, Functional Strength, Group Therapy, Gait, Safety, Therapeutic Exercise, Transfers Treatment Duration: Sep 08, 2020 Frequency: At least 5 of 7 days/Wk (IRF) Estimated Hrs Per Day: 1.5 hours per day Patient and/or Family Agrees t: Yes Safety Risks/Education Patient Education: Transfer Techniques, Safety Issues Teaching Recipient: Patient Teaching Methods: Demonstration, Discussion Response to Teaching: Reinforcement Needed Time/GCodes Time In: 1230 Time Out: 1315 Total Billed Treatment Time: 45 Total Billed Treatment visit EVM 15 FA 30 ELLIOT SEO PT Aug 18, 2020 13:35
--- NOTE | 2020-08-18 13:45 | Occupational Therapy Eval ---
OT Evaluation-General/PLF Medical Diagnosis Admission Date Aug 18, 2020 at 12:30 Medical Diagnosis: R intracerebral hemmorrhage of cerebellum with intraventricular hemorrhage Onset Date: Aug 12, 2020 Therapy Diagnosis Therapy Diagnosis: decr self care, decr funct mob, weakness, decr activity daphne Precautions Precautions/Isolations: Fall Prevention, Standard Precautions Referral Physician: Stella Referral Reason: Evaluation/Treatment Medical History Pertinent Medical History: HTN, Hypothroidism, Neuropathy (pt reported in feet) Additional Medical History Indwelling catheter. Hyperlipidemia, v tach. Thickened skin on tops of feet. Alcohol abuse (drinks 1 pint isac each day). Thyroid cancer. Tobacco abuse. Aneurysm 2004. Current History Admitted from [facility]. Ataxia, dizziness, double vision. Reviewed History: Yes Social History Home: [facility] Current Living Status: Spouse Steps Inside Home: 5 ADL-Prior Level of Function SCALE: Activities may be completed with or without assistive devices. 9-Jrypgsckhh-ygnapbx completes the activity by him/herself with no assistance from a helper. 5-Set-up or Clean-up Assistance-helper sets up or cleans up; patient completes activity. [place] assists only prior to or following the activity. 4-Supervision or Touching Assistance-helper provides verbal cues and/or touching/steadying and/or contact guard assistance as patient completes activity. Assistance may be provided throughout the activity or intermittently. 3-Partial/Moderate Assistance-helper does LESS THAN HALF the effort. [place] lifts, holds or supports trunk or limbs, but provides less than half the effort. 2-Substantial/Maximal Assistance-helper does MORE THAN HALF the effort. [place] lifts or holds trunk or limbs and provides more than half the effort. 1-Ifmejjwqg-cgbfws does ALL the effort. Patient does none of the effort to complete the activity. Or, the assistance of 2 or more helpers is required for the patient to complete the activity. If activity was not attempted, code reason: 7-Patient Refused. 9-Not Applicable-not attempted and the patient did not perform the activity before the current illness, exacerbation or injury. 10-Not Attempted due to Environmental Limitations-(lack of equipment, weather restraints, etc.). 88-Not Attempted due to Medical Conditions or Safety Concerns. ADL PLOF Comments Pt reported that he was previously independent with all ADLs, He also did all home care tasks without help and was up on a ladder last week. He drives. 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 Self Care: Independent Functional Cognition: Independent DME/Equipment: Shower (Walk in shower with seat) OT Current Status Subjective Pt seen in room, up in recliner, agreeable to OT. No pain reported. Appearance Alert, cooperative Current Glasses/Contacts: Yes (reading) Hearing Aids: No Dentures/Partials: No Upper Extremity ROM Grossly WFL bilaterally, with some arthritic changes in fingers Upper Extremity Sensation Pt reported no problems Upper Extremity Strength Grossly 5/5 bilaterally, with no observable difference in strength. R UE lags a little behind L ADL-Treatment ADL-Current Sit to stand with CGA, cues for hand placement. Tends to pull up from walker rather than push up from chair. Walked to bathroom with min A, FWW. When turning to his L, he tended to lean to the right and he reported R leg weaker than L Did not lose balance turning to his R side. Cues to reach back before sitting. ADLs to follow after he has eaten. Eating (QC): 7 Oral Hygiene (QC): 7 Shower/Bathe Self (QC): 7 Upper Body Dressing (QC): 7 Lower Body Dressing (QC): 7 On/Off Footwear (QC): 7 Toileting Hygiene (QC): 7 Education OT Patient Education: Purpose of tx/functional activities, Reviewed precautions, Rehab process, Safety issues, Transfer techniques Teaching Recipient: Patient, Significant Other Teaching Methods: Discussion Response to Teaching: Verbalize Understanding, Return Demonstration, Reinforcement Needed OT Short Term Goals Short Term Goals Time Frame: Aug 21, 2020 Eatin Oral hygiene: 4 Toileting hygiene: 4 Shower/bathe self: 4 Upper body dressin Lower body dressin Putting on/taking off footwear: 4 OT Half-Way Goals Half-Way Goals Time Frame: Sep 04, 2020 Eating (QC): 6 Oral Hygiene (QC): 6 Toileting Hygiene (QC): 6 Shower/Bathe Self (QC): 6 Upper Body Dressing (QC): 6 Lower Body Dressing (QC): 6 On/Off Footwear (QC): 6 Additional Goals: 1-Demonstrate ADL Tasks, 2-Verbalize Understanding, 3- ImproveStrength/Danay 1=Demonstrate adherence to instructed precautions during ADL tasks. 2=Patient will verbalize/demonstrate understanding of assistive devices/modifications for ADL. 3=Patient will improve strength/tolerance for activity to enable patient to perform ADL's. OT Education/Plan Problem List/Assessment Assessment: Decreased Activ Tolerance, Decreased UE Strength, Dependent T ransfers, Impaired Funct Balance, Impaired Self-Care Skills Pt would benefit from skilled OT to increase his independence in basic self care to allow him to safely return home to live with family. Discharge Recommendations Plan/Recommendations: Continue POC Treatment Plan/Plan of Care Treatment,Training & Education: Yes Patient would benefit from OT for education, treatment and training to promote independence in ADL's, mobility, safety and/or upper extremity function for ADL's. Plan of Care: ADL Retraining, Caregiver Training, Functional Mobility, Group Exercise/Act as Ind (education, exercise, coordination, funct mobility, socialization), UE Funct Exercise/Act, UE Neuromus Re-Ed/Coord Treatment Duration: Sep 04, 2020 Frequency: At least 5 of 7 days/Wk (IRF) Estimated Hrs Per Day: 1.5 hours per day Rehab Potential: Good Time/GCodes Start Time: 13:15 Stop Time: 13:35 Total Time Billed (hr/min): 20 Billed Treatment Time visit, 20 minutes evaluation moderate intensity MATHIEU TRUJILLO OT Aug 18, 2020 13:45
--- NOTE | 2020-08-18 14:08 | Occupational Ther Daily Note ---
OT Current Status-Daily Note Subjective Alert, sitting in recliner. Pt agrees to therapy. No c/o pain. Mental Status/Objective Patient Orientation: Person, Place, Time, Situation ADL-Treatment Took over care from OTR/L. Pt agrees to shower. Pt ambulated to bathroom and transferred to chair to doff clothing. Upper body and footwear by self, lower body CGA in standing then threaded feet out of pant legs. Transferred into shower using grabbars and shower bench. Sitting on shower bench, pt completed shower using grabbars with close SBA for safety. Sitting in chair, pt dressed upper body and footwear by self after set up, threaded pants over feet by self then CGA in standing while pt hiked pants over hips. Pt completed oral care by self in shower. Pt able to set up own meal and uses regular utensils to eat. Therapy Code Descriptions/Definitions Functional [place] Measure: 0=Not Assessed/NA 4=Minimal Assistance 1=Total Assistance 5=Supervision or Setup 2=Maximal Assistance 6=Modified [place] 3=Moderate Assistance 7=Complete IndependenceSCALE: Activities may be completed with or without assistive devices. 2-Iwmakbcmex-lwwzolx completes the activity by him/herself with no assistance from a helper. 5-Set-up or Clean-up Assistance-helper sets up or cleans up; patient completes activity. [place] assists only prior to or following the activity. 4-Supervision or Touching Assistance-helper provides verbal cues and/or touching/steadying and/or contact guard assistance as patient completes activity. Assistance may be provided throughout the activity or intermittently. 3-Partial/Moderate Assistance-helper does LESS THAN HALF the effort. [place] lifts, holds or supports trunk or limbs, but provides less than half the effort. 2-Substantial/Maximal Assistance-helper does MORE THAN HALF the effort. [place] lifts or holds trunk or limbs and provides more than half the effort. 8-Yzvbkbuyd-ltlofh does ALL the effort. Patient does none of the effort to complete the activity. Or, the assistance of 2 or more helpers is required for the patient to complete the activity. If activity was not attempted, code reason: 7-Patient Refused. 9-Not Applicable-not attempted and the patient did not perform the activity before the current illness, exacerbation or injury. 10-Not Attempted due to Environmental Limitations-(lack of equipment, weather restraints, etc.). 88-Not Attempted due to Medical Conditions or Safety Concerns. Eating (QC): 6 Oral Hygiene (QC): 6 Shower/Bathe Self (QC): 4 Upper Body Dressing (QC): 5 Lower Body Dressing (QC): 4 On/Off Footwear: 5 Toileting Hygiene (QC): 4 Toilet Transfer (QC): 4 Other Treatment Co-treat with PT ([id number]), skilled instructions and cues due to increased fall risk and balance issues with standing and ambulation. Pt requires assist to regain balance with turning corners while ambulating, looking L or R while ambulating. PT focusing on balance, ambulation and mobility while OT focusing on functional mobility with balance and ADLs. After session, pt lying in bed with call light/phone in reach. All needs met in room. OT Short Term Goals Short Term Goals Time Frame: Aug 21, 2020 Eatin Oral hygiene: 4 Toileting hygiene: 4 Shower/bathe self: 4 Upper body dressin Lower body dressin Putting on/taking off footwear: 4 OT [facility] Goals Digital Imaging Specialist Goals Time Frame: Sep 04, 2020 Eating (QC): 6 Oral Hygiene (QC): 6 Toileting Hygiene (QC): 6 Shower/Bathe Self (QC): 6 Upper Body Dressing (QC): 6 Lower Body Dressing (QC): 6 On/Off Footwear (QC): 6 Additional Goals: 1-Demonstrate ADL Tasks, 2-Verbalize Understanding, 3- ImproveStrength/Danay 1=Demonstrate adherence to instructed precautions during ADL tasks. 2=Patient will verbalize/demonstrate understanding of assistive devices/modifications for ADL. 3=Patient will improve strength/tolerance for activity to enable patient to perform ADL's. OT Education/Plan Problem List/Assessment Assessment: Decreased Activ Tolerance, Decreased Safety Aware, Impaired Coordination, Impaired Funct Balance, Impaired Self-Care Skills Pt would benefit from skilled OT to increase his independence in basic self care to allow him to safely return home to live with family. Discharge Recommendations Plan/Recommendations: Continue POC Treatment Plan/Plan of Care Patient would benefit from OT for education, treatment and training to promote independence in ADL's, mobility, safety and/or upper extremity function for ADL' s. Plan of Care: ADL Retraining, Caregiver Training, Functional Mobility, Group Exercise/Act as Ind (education, exercise, coordination, funct mobility, socialization), UE Funct Exercise/Act, UE Neuromus Re-Ed/Coord Treatment Duration: Sep 04, 2020 Frequency: At least 5 of 7 days/Wk (IRF) Estimated Hrs Per Day: 1.5 hours per day Rehab Potential: Good Time/GCodes Start Time: 13:35 Stop Time: 14:45 Total Time Billed (hr/min): 70 Billed Treatment Time 1 visit-ADL 2 (30 min) FA 3 (45 min) co-treat with PT [id number], individual [id number] ELLIOT BANUELOS Aug 18, 2020 14:08
--- NOTE | 2020-08-18 14:43 | Physical Therapy Daily Note ---
PT Daily Note-Current Subjective Patient in recliner pre tx, agrees to PT, has no complaints of pain. Will be co-treating with OT due to poor patient balance and endurance, to work on balance activity and functional mobility. Appearance Patient in bed post tx with nurse call, phone, tray, all needs met. Mental Status Patient Orientation: Person, Place, Situation Transfers SCALE: Activities may be completed with or without assistive devices. 1-Moigqauzeq-myoybhm completes the activity by him/herself with no assistance from a helper. 5-Set-up or Clean-up Assistance-helper sets up or cleans up; patient completes activity. [place] assists only prior to or following the activity. 4-Supervision or Touching Assistance-helper provides verbal cues and/or touching/steadying and/or contact guard assistance as patient completes activity. Assistance may be provided throughout the activity or intermittently. 3-Partial/Moderate Assistance-helper does LESS THAN HALF the effort. [place] lifts, holds or supports trunk or limbs, but provides less than half the effort. 2-Substantial/Maximal Assistance-helper does MORE THAN HALF the effort. [place] lifts or holds trunk or limbs and provides more than half the effort. 9-Vzdyjtixk-cjzzmx does ALL the effort. Patient does none of the effort to complete the activity. Or, the assistance of 2 or more helpers is required for the patient to complete the activity. If activity was not attempted, code reason: 7-Patient Refused. 9-Not Applicable-not attempted and the patient did not perform the activity before the current illness, exacerbation or injury. 10-Not Attempted due to Environmental Limitations-(lack of equipment, weather restraints, etc.). 88-Not Attempted due to Medical Conditions or Safety Concerns. Roll Left & Right (QC): 6 Sit to Lying (QC): 4 Sit to Stand (QC): 3 Chair/Zqg-ij-Hsjik Xfer(QC): 3 Gait Training Distance: 100', 200' Walk 10 feet (QC): 3 Walk 50 ft with 2 Turns(QC): 3 Walk 150 ft (QC): 3 Gait Assistive Device: FWW slow pace, unsteady, some ataxia, needs occasional assist with balance Neuromuscular standing balance activity throwing rings, getting rings from various places to challenge balance and limits of stability Treatments PT worked on bed mobility and transfers, ambulation, balance and positioning during balance training, OT worked on balance training, UE positioning and safety during activity. Patient also was eating for a few minutes at the beginning of tx, had him scoot forward in the chair so he doesn't have back support to work on trunk control and strength Assessment Current Status: Fair Progress needs assist with balance during transfers and ambulation, cooperative PT Short Term Goals Short Term Goals Time Frame: Aug 25, 2020 Roll Left & Right: 6 Sit to lyin Lying to sitting on side of be: 6 Sit to stand: 4 Chair/syv-hq-cjchy transfer: 4 Walk 150 feet: 4 PT Snf Goals Snf Goals PT Economics Professor Goals Time Frame: Sep 08, 2020 Roll Left & Right (QC): 6 Sit to Lying (QC): 6 Lying-Sitting on Side/Bed(QC): 6 Sit to Stand (QC): 6 Chair/Jza-jx-Xlvst Xfer(QC): 6 Toilet Transfer (QC): 6 Car Transfer (QC): 6 Does the Patient Walk: Yes Walk 10 feet (QC): 6 Walk 50ft with 2 Turns (QC): 6 Walk 150 ft (QC): 6 Walking 10ft on Uneven Surface: 6 1 Step (curb) (QC): 6 4 Steps (QC): 6 12 Steps (QC): 4 Picking up an Object (QC): 4 Does the Pt use WC or Scooter?: No Wheel 50 feet with 2 turns (QC: 9 Wheel 150 feet: 9 PT Plan Problem List Problem List: Activity Tolerance, Functional Strength, Safety, Balance, Gait, Transfer, Bed Mobility, ROM Treatment/Plan Treatment Plan: Continue Plan of Care Treatment Plan: Bed Mobility, Education, Functional Activity Danay, Functional Strength, Group Therapy, Gait, Safety, Therapeutic Exercise, Transfers Treatment Duration: Sep 08, 2020 Frequency: At least 5 of 7 days/Wk (IRF) Estimated Hrs Per Day: 1.5 hours per day Patient and/or Family Agrees t: Yes Safety Risks/Education Patient Education: Gait Training, Transfer Techniques, Correct Positioning, Safety Issues Teaching Recipient: Patient Teaching Methods: Demonstration, Discussion Response to Teaching: Reinforcement Needed Time/GCodes Time In: 1400 Time Out: 1445 Total Billed Treatment Time: 45 Total Billed Treatment 1 visit NM 15' FA 30' YAEL RAMIREZ PT Aug 18, 2020 14:43
[2020-08-18] MEDS: ASCORBIC ACID (VIT C) 500 MG TABLET PO SCH (17:18)
[2020-08-18 20:00] VITALS: BP 161/74
[2020-08-18] MEDS: VITAMIN D3 25 MCG (1,000 UNITS) TABLET PO SCH (20:44)
[2020-08-18] MEDS: GABAPENTIN 600 MG (NEURONTIN) TAB PO SCH (20:44)
[2020-08-18] MEDS: TRIAMCINOLONE 0.1% CR (KENALOG) 80 GM TUBE TP SCH (20:44)
[2020-08-18] MEDS ORDERED: NON-FORMULARY MEDICATION 1 EA EA (Cholecalciferol (Vitamin D3) (Vitamin D3) 25 MCG) PO SCH (21:00)
[2020-08-18] MEDS ORDERED: NON-FORMULARY MEDICATION 1 EA EA (Multivitamin 1 EACH) PO SCH (21:00)
[2020-08-18] MEDS ORDERED: POTASSIUM GLUCONATE PO SCH (21:00)
[2020-08-18] MEDS ORDERED: NON-FORMULARY MEDICATION 1 EA EA (Vitamin B Complex 1 EACH) PO SCH (21:00)
[2020-08-18] MEDS ORDERED: ASCORBIC ACID (VIT C) 500 MG TABLET PO SCH (21:00)
[2020-08-19 05:31] LABS: BASOPHILS % (AUTO) 1 % (0-10); EOSINOPHILS # (AUTO) 0.1 10^3/uL (0.0-0.3); EOSINOPHILS % (AUTO) 2 % (0-10); HEMATOCRIT 44 % (40-54); HEMOGLOBIN 14.9 g/dL (13.3-17.7); LYMPHOCYTES # (AUTO) 1.3 10^3/uL (1.0-4.0); LYMPHOCYTES % (AUTO) 20 % (12-44); MEAN CORPUSCULAR HEMOGLOBIN 35 pg (25-34); MEAN CORPUSCULAR HGB CONC 34 g/dL (32-36); MEAN CORPUSCULAR VOLUME 103 fL (80-99); MEAN PLATELET VOLUME 10.3 fL (9.0-12.2); MONOCYTES # (AUTO) 0.9 10^3/uL (0.0-1.0); MONOCYTES % (AUTO) 13 % (0-12); NEUTROPHILS # (AUTO) 4.3 10^3/uL (1.8-7.8); NEUTROPHILS % (AUTO) 65 % (42-75); PLATELET COUNT 225 10^3/uL (130-400); WHITE BLOOD COUNT 6.7 10^3/uL (4.3-11.0)
[2020-08-19 05:41] LABS: POTASSIUM 3.9 MMOL/L (3.6-5.0)
[2020-08-19 05:42] LABS: CALCIUM 9.9 MG/DL (8.5-10.1)
[2020-08-19 05:44] LABS: TOTAL PROTEIN 7.6 GM/DL (6.4-8.2)
[2020-08-19 05:45] LABS: BILIRUBIN,TOTAL 1.6 MG/DL (0.1-1.0)
[2020-08-19 05:47] LABS: CREATININE SERUM 1.24 MG/DL (0.60-1.30)
[2020-08-19] MEDS: MULTIVIT W/MINERALS TAB (THERAGRAN M) PO SCH (06:22)
[2020-08-19] MEDS: CYANOCOBALAMIN 1,000 MCG (VITAMIN B-12) TABLET PO SCH (06:23)
[2020-08-19] MEDS: LEVOTHYROXINE 100 MCG (LEVOTHROID) TAB PO SCH (06:23)
[2020-08-19 08:00] VITALS: BP 146/67
[2020-08-19] MEDS ORDERED: NON-FORMULARY MEDICATION 1 EA EA (Cyanocobalamin (Vitamin B-12) (Vitamin B-12) 500 MCG) PO SCH (09:00)
--- NOTE | 2020-08-19 09:13 | ST Cognitive Linguistic Eval ---
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 Douglas Medical History Pertinent Medical History: HTN, Hypothroidism, Neuropathy (pt reported in feet) Reviewed History: No Social History Current Living Status: Spouse Speech PLF-Current Status Prior Level of Function Patient lives at home with his where he was independent for his daily needs. Subjective Patient was pleasant and cooperative with the cognitive assessment. Language Eval: Auditory Comprehends Simple Yes/No Ques: Functional Indent/Objects Multiple Meza: Functional Ident/Pics in Multiple Meza: Functional Follows 1-Step Commands: Functional Follows Complex Directions: Functional Follows General Conversations: Functional Language Eval: Verbal Language Completes Spontaneous Greeting: Functional Produces Auto, Serial Info: Functional Imitates Simple Words/Phrases: Functional Word Finding: Functional Requests Basic Needs: Functional States Basic Personal Info: Functional Expresses Complex Ideas: Functional Objective Cognitive Domain Attention: WNL Memory: WNL Problem Solving: Functional Executive Functions: WNL Visuospatial Skills: WNL Composite Severity Rating: WNL Clock Drawing Severity Rating: WNL Objective Formal/Standardized Tests [facility] Mental Status ([facility]) Results 28/30, within normal limits Oral Motor/Speech Production Within Normal Limits Impression Patient is a pleasant 80 y/o male who was admitted to the ARU s/p CVA. The patient states this is the second stroke he's had. Patient was given the SLUMS with a score of 28/30 obtained. This score is within the normal range of function. No further ST services are indicated at this time. Speech Patient Assess Expression of Ideas/Wants: Expression (4) Understanding Verbal Content: Understands (4) Brief Interview-Mental Status: Yes Repetition of Three Words: Three (3) Temporal Orientation: Year: Correct (3) Temporal Orientation: Month: Accurate within 5 days(2) Temporal Orientation: Day: Correct (1) Recall : Wear to say "Sock": Yes, no cue required (2) Recall : Color: Yes, no cue required (2) Recall : Bed: Yes,after cueing (1) Memory/Recall Ability: Current season, Location of own room, That he or she is in a hsp/hsp unit Speech-Plan Patient/Family Goals Patient/Family Goals: Patient plans on returning to his home where he lives with his . Treatment Plan Speech Therapy Treatment Plan: Discontinue ST Treatment Duration: Aug 19, 2020 Frequency: 1 time per week Estimated Hrs Per Day: .5 hour per day Rehab Potential: Good Barriers to Learning: None identified Pt/Family Agrees to Plan: Yes Safety Risks/Education Teaching Recipient: Patient Teaching Methods: Discussion Response to Teaching: Verbalize Understanding Education Topics Provided: Safety within his room, communication of wants/needs Time Speech Therapy Time In: 09:00 Speech Therapy Time Out: 09:30 Total Billed Time: 30 Billed Treatment Time 1, ALICIA SEPULVEDA B[address] ST Aug 19, 2020 09:13
[2020-08-19] MEDS: amLODIPine 5 MG (NORVASC) TAB PO SCH (09:16)
[2020-08-19] MEDS: polyethylene glycoL POWDER 17 GM (MIRALAX) PACK PO SCH ×2 (09:16→21:17)
[2020-08-19] MEDS: FOLIC ACID 1 MG TAB PO SCH (09:16)
[2020-08-19] MEDS: TRIAMCINOLONE 0.1% CR (KENALOG) 80 GM TUBE TP SCH ×2 (09:17→21:13)
[2020-08-19] MEDS: GABAPENTIN 600 MG (NEURONTIN) TAB PO SCH ×2 (09:17→21:12)
[2020-08-19] MEDS: DOCUSATE SODIUM 100 MG (COLACE) CAP PO SCH ×2 (09:17→21:16)
[2020-08-19] MEDS: SENNA W/DOCUSATE (SENOKOT S) TABLET PO SCH ×2 (09:17→21:17)
--- NOTE | 2020-08-19 10:32 | Individualized Plan of Care ---
Individualized Plan of Care Rehab Nursing IPOC Order Admission Date Aug 18, 2020 at 12:30 Current Orders Orders Admission Order(Inpt,Obs,Sdc) (08/18/20 06:15) Vital Signs: Per Unit Policy ( ,16,00 (08/18/20 06:15) Kalia Madisynly (08/18/20 06:15) Sequential Compression Device .admit (08/18/20 06:15) Display Specialist-Inpt Rehab Con (08/18/20 06:15) Rehab Nursing Orders-Ipoc (08/18/20 06:15) Physical Therapy Rehab Orders (08/18/20 06:15) Occupational Therapy Rehab Ord (08/18/20 06:15) Speech Therapy Rehab Orders (08/18/20 06:15) Cbc With Automated Diff (08/19/20 06:00) Comprehensive Metabolic Panel (08/19/20 06:00) Precautions (Aru) (08/18/20 06:15) Weekly Weight WEEK (08/18/20 06:15) Rehab-Intensity Of Therapy (08/18/20 06:15) Initiate Admission Nursing Pro .admission (08/18/20 06:15) Acetaminophen Tablet/Caplet (Tylenol T (08/18/20 06:15) Alprazolam Tablet (Xanax Tablet) (08/18/20 06:15) Calcium Carbonate Chew Tablet (Antacid C (08/18/20 06:15) Diphenhydramine Tablet (Benadryl Tablet) (08/18/20 06:15) Docusate Sodium Capsule (Colace Capsule) (08/18/20 09:00) Docusate Sodium Capsule (Colace Capsule) (08/18/20 06:15) Bisacodyl Suppository (Dulcolax Supposit (08/18/20 06:15) Lactulose Oral Solution (Enulose Oral So (08/18/20 06:15) Na Phos/Na Biphos Enema (Fleet Enema Thaddeus (08/18/20 06:15) Guaifenesin/Codeine Syrup (Robitussin Ac (08/18/20 06:15) Hydrocodone/Apap 5/325 Tablet (Lortab 5 (08/18/20 06:15) Loperamide Tablet (Imodium Tablet) (08/18/20 06:15) Melatonin Tablet (Melatonin Tablet) (08/18/20 06:15) Polyethylene Glycol Powder Pkt (Miralax (08/18/20 09:00) Ondansetron Oral Dissolve Tab (Zofran (08/18/20 06:15) Senna S Tablet (Senokot S Tablet) (08/18/20 09:00) Initiate Admission Nursing Pro .admission (08/18/20 06:15) Admission Arrival Bed Request (08/18/20 12:43) General/Regular (08/18/20 Lunch) Amlodipine Tablet (Norvasc Tablet) (08/19/20 09:00) Ascorbic Acid Tablet (Vitamin C Tablet) (08/18/20 21:00) Atorvastatin Tablet (Lipitor) (08/19/20 09:00) Folic Acid Tablet (Folic Acid Tablet) (08/19/20 09:00) Gabapentin Capsule/Tablet (Neurontin Cap (08/18/20 21:00) Hydrochlorothiazide Cap/Tablet (Hctz Cap (08/19/20 09:00) Levothyroxine Tablet (Synthroid Tablet) (08/19/20 06:30) (Nf) Cholecalciferol (Vitamin D3) (Vitam (08/18/20 21:00) (Nf) Cyanocobalamin (Vitamin B-12) (Adriana (08/19/20 09:00) (Nf) [place] 2kcl/[place] (Glu (08/18/20 21:00) (Nf) Multivitamin (08/18/20 21:00) (Nf) Potassium Gluconate (Potassium Gluc (08/18/20 21:00) (Nf) Vitamin B Complex (08/18/20 21:00) Triamcinolone 0.1% Cream 80 Gm (Kenalog (08/18/20 21:00) Patient Visit (08/18/20 ) Pt Eval High Complexity (08/18/20 ) Functional Activities, Ea 15 (08/18/20 ) Patient Visit (08/18/20 ) Functional Activities, Ea 15 (08/18/20 ) Ex Neuromuscular, Ea 15 Min (08/18/20 ) Therapeutic Multivitamin Tab (Vitamins, (08/19/20 07:00) Cyanocobalamin Tablet (Vitamin B-12 Tabl (08/19/20 07:00) Ascorbic Acid Tablet (Vitamin C Tablet) (08/18/20 17:00) Cholecalciferol Capsule/Tablet (Vitamin (08/18/20 21:00) Diclofenac 1% Gel (Voltaren 1% Gel) (08/19/20 10:00) Gamma Glutamyl Transpeptidase (08/19/20 10:32) Hydrochlorothiazide Cap/Tablet (Hctz Cap (08/20/20 09:00) Patient Visit (08/19/20 ) Speech Sound Lang Comp (08/19/20 ) Treat. Speech/Lang/Voice (08/19/20 ) Patient Visit (08/19/20 ) Exercise Therap, Ea 15 Min (08/19/20 ) Functional Activities, Ea 15 (08/19/20 ) Therapeutic, Group (08/19/20 ) Potassium Chloride (Tablet) (Micro K Tab (08/19/20 17:00) Rehab Nursing Orders: Ongoing Assess. of Cognitive Status, Ongoing Assess. of Function Status, Bladder Management, Bladder Scan, Bladder Training, Bowel Management, Bowel Training, Disease Management & Educaiton, DVT Prophylaxis, Fall Prevention, Fluid/Electrolyte/Nutrition Mgmt, Infection Prevention, Medication Management & Education, Management of Risks & Complications, Management of Skin Intergrity, Nutrition Management, Pain Management, Patient/Family Support, Safety Management Intensity of Therapy to be met Patient to be seen: Min.3h per day/5 of 7d PT IPOC Problem List: Activity Tolerance, Functional Strength, Safety, Balance, Gait, Transfer, Bed Mobility, ROM Treatment Plan: Continue Plan of Care Bed Mobility, Education, Functional Activity Danay, Functional Strength, Group Therapy, Gait, Safety, Therapeutic Exercise, Transfers Treatment Duration: Sep 08, 2020 Frequency: At least 5 of 7 days/Wk (IRF) Estimated Hrs Per Day: 1.5 hours per day OT IPOC Problems: Decreased Activ Tolerance, Decreased Safety Aware, Impaired Coordination, Impaired Funct Balance, Impaired Self-Care Skills OT Treatment, Training and Edu: Yes OT Problems Pt would benefit from skilled OT to increase his independence in basic self care to allow him to safely return home to live with family. Plan of Care: ADL Retraining, Caregiver Training, Functional Mobility, Group Exercise/Act as Ind (education, exercise, coordination, funct mobility, socia lization), UE Funct Exercise/Act, UE Neuromus Re-Ed/Coord Treatment Duration: Sep 04, 2020 Frequency: At least 5 of 7 days/Wk (IRF) Estimated Hrs Per Day: 1.[address] IPOC Speech Therapy Treatment Plan: Discontinue ST Treatment Duration: Aug 19, 2020 Frequency: 1 time per week Estimated Hrs Per Day: .5 hour per day Display Specialist/Case Mgmt Display Specialist/Case Managemen: Discharge Planning Dietitian/Adobe Flex Developer Dietitian/Adobe Flex Developer to monitor nutritional status and make changes and/or recommendations as needed and work with speech pathology on dietary upgrades as the occur. Physician IPOC Medical Issues being managed closely and that require the 24 hour availability of a physician: Recent hemorrhagic stroke with history of alcoholism and elevated liver enzymes from alcoholic hepatitis will be at high risk for decompensation and liver failure and will need close monitoring from physician 03/10 Medical Issues: Bowel/Bladder Function, DVT Prophylaxis, Falls Precautions, Fluid/Electrolyte/Nutrition Balance, Infection Protection, Pain Management Brief Synthesis of Preadmission Screen, Post-Admission Evaluation, and Therapy Evaluations: PT and OT will focus on regaining ADL independence and ambulatory function with fall risk prevention in order to return home to live independently with his Medical Prognosis: Good Anticipated Length of Stay: 7 days CARMEN SALINAS DO Aug 19, 2020 10:32
--- NOTE | 2020-08-19 10:32 | PM&R Progress Note ---
Subjective HPI/CC On Admission Date Seen by Provider: Aug 19, 2020 Time Seen by Provider: 10:00 Subjective/Events-last exam 08/19/20: Patient doing pretty well Elevated liver enzymes from alcoholic hepatitis Bowels moved yesterday Colace and senna will be given Labs reviewed everything looked good except for elevated liver enzymes Settling in well Review of Systems General: Fatigue, Malaise HEENT: Visual Changes Neurological: Weakness, Incoordination Objective Exam Vital Signs Vital Signs Date Time Temp Pulse Resp B/P (MAP) Pulse Ox O2 Delivery O2 Flow Rate FiO2 08/19/20 20:17 37.4 70 20 164/69 (100) 93 Room Air Capillary Refill : General Appearance: No Apparent Distress, WD/WN, Chronically ill, Obese HEENT: PERRL/EOMI, Normal ENT Inspection, Pharynx Normal Neck: Full Range of Motion, Normal Inspection, Non Tender, Supple, Carotid Bruit Respiratory: Chest Non Tender, Lungs Clear, Normal Breath Sounds, No Accessory Muscle Use, No Respiratory Distress Cardiovascular: Regular Rate, Rhythm, No Edema, No Gallop, No JVD, No Murmur, Normal Peripheral Pulses Gastrointestinal: Normal Bowel Sounds, No Organomegaly, No Pulsatile Mass, Non Tender, Soft Back: Normal Inspection, No CVA Tenderness, No Vertebral Tenderness Extremity: Normal Capillary Refill, Normal Inspection, Normal Range of Motion, Non Tender, No Calf Tenderness, No Pedal Edema Neurologic/Psychiatric: Alert, Oriented x3, Normal Mood/Affect, safety and security officer II-XII Norm as Tested, Abnormal Gait, Motor Weakness (Generalized weakness) Skin: Normal Color, Warm/Dry Lymphatic: No Adenopathy Results/Procedures Lab Laboratory Tests 08/19/20 05:04 Patient resulted labs reviewed. FIM Transfers Therapy Code Descriptions/Definitions Functional [place] Measure: 0=Not Assessed/NA 4=Minimal Assistance 1=Total Assistance 5=Supervision or Setup 2=Maximal Assistance 6=Modified [place] 3=Moderate Assistance 7=Complete IndependenceSCALE: Activities may be completed with or without assistive devices. 1-Ymobznctne-fzzabbh completes the activity by him/herself with no assistance from a helper. 5-Set-up or Clean-up Assistance-helper sets up or cleans up; patient completes activity. [place] assists only prior to or following the activity. 4-Supervision or Touching Assistance-helper provides verbal cues and/or touching/steadying and/or contact guard assistance as patient completes activity. Assistance may be provided throughout the activity or intermittently. 3-Partial/Moderate Assistance-helper does LESS THAN HALF the effort. [place] lifts, holds or supports trunk or limbs, but provides less than half the effort. 2-Substantial/Maximal Assistance-helper does MORE THAN HALF the effort. [place] lifts or holds trunk or limbs and provides more than half the effort. 1-Fnzxibrae-ebcibo does ALL the effort. Patient does none of the effort to complete the activity. Or, the assistance of 2 or more helpers is required for the patient to complete the activity. If activity was not attempted, code reason: 7-Patient Refused. 9-Not Applicable-not attempted and the patient did not perform the activity before the current illness, exacerbation or injury. 10-Not Attempted due to Environmental Limitations-(lack of equipment, weather restraints, etc.). 88-Not Attempted due to Medical Conditions or Safety Concerns. Roll Left to Right (QC): 6 Sit to Lying (QC): 4 Sit to Stand (QC): 3 Chair/Mxy-bh-Awwjm Xfer(QC): 3 Car Transfer (QC): 4 Gait Training Does the Patient Walk?: Yes Distance: 100', 200' Walk 10 feet (QC): 3 Walk 50 ft with 2 Turns(QC): 3 Walk 150 ft (QC): 3 Walking 10ft/uneven surface-QC: 3 Gait Assistive Device: FWW Wheelchair Training Does the Pt Use a Wheelchair?: No Wheel 50 ft with 2 turns (QC): 9 Wheel 150 ft (QC): 9 Stair Training 1 Step (curb) (QC): 88 4 Steps (QC): 88 12 Steps (QC): 88 (will assess later today) Balance Picking up an Object (QC): 88 ADL-Treatment Eating (QC): 6 Oral Hygiene (QC): 6 Shower/Bathe Self (QC): 4 Upper Body Dressing (QC): 5 Lower Body Dressing (QC): 4 On/Off Footwear (QC): 5 Toileting Hygiene (QC): 4 Toilet Transfer (QC): 4 Assessment/Plan Assessment and Plan Assess & Plan/Chief Complaint Assessment: Hemorrhagic stroke Generalized weakness Alcoholism Hypothyroidism Oral tobacco use Advanced age Fall risk Plan: Inpatient rehab protocol Monitor labs Home meds Fall risk 08/19/2020: Continue protocol Monitor elevated liver enzymes from alcoholic hepatitis Await GGT added to labs (1) CVA (cerebral vascular accident) (2) Hypothyroidism (3) Intracerebellar and posterior fossa hemorrhage Status: Acute (4) Chronic alcohol use Status: Acute (5) Generalized weakness Status: Acute CARMEN SALINAS DO Aug 19, 2020 10:32
--- NOTE | 2020-08-19 12:55 | Occupational Ther Daily Note ---
OT Current Status-Daily Note Subjective Pt seen in room, up in bed, agreeable to OT. No pain mentioned. Appearance Alert, cooperative ADL-Treatment Because he had showered yesterday afternoon, he did not want to do ADLs except toileting. He got up from EOB, pulling up on walker, cues to push up. Walked CGA , FWW to bathroom, cues to widen base of support when walking. He wobbled but with no jennie LOB. Toilet transfer CGA, clothing management CGA. Stood at sink to wash hands SBA. Therapy Code Descriptions/Definitions Functional [place] Measure: 0=Not Assessed/NA 4=Minimal Assistance 1=Total Assistance 5=Supervision or Setup 2=Maximal Assistance 6=Modified [place] 3=Moderate Assistance 7=Complete IndependenceSCALE: Activities may be completed with or without assistive devices. 1-Hlkveglzin-xhdrtzy completes the activity by him/herself with no assistance from a helper. 5-Set-up or Clean-up Assistance-helper sets up or cleans up; patient completes activity. [place] assists only prior to or following the activity. 4-Supervision or Touching Assistance-helper provides verbal cues and/or touching/steadying and/or contact guard assistance as patient completes activity. Assistance may be provided throughout the activity or intermittently. 3-Partial/Moderate Assistance-helper does LESS THAN HALF the effort. [place] lifts, holds or supports trunk or limbs, but provides less than half the effort. 2-Substantial/Maximal Assistance-helper does MORE THAN HALF the effort. [place] lifts or holds trunk or limbs and provides more than half the effort. 4-Kiwcyipsf-tmlgjz does ALL the effort. Patient does none of the effort to complete the activity. Or, the assistance of 2 or more helpers is required for the patient to complete the activity. If activity was not attempted, code reason: 7-Patient Refused. 9-Not Applicable-not attempted and the patient did not perform the activity before the current illness, exacerbation or injury. 10-Not Attempted due to Environmental Limitations-(lack of equipment, weather restraints, etc.). 88-Not Attempted due to Medical Conditions or Safety Concerns. Toileting Hygiene (QC): 4 Toilet Transfer (QC): 4 Other Treatment Walked to gym with CGA, FWW. Able to get into chair with arms with cues to reach back. Completed 10 minutes bilat UE coordination on arm bike set at 20W resistance, with only one brief recovery period. Completed other gross motor and fine motor activities, focusing on R hand. These included nuts and bolts, 1" peg placement, manipulating small medicine cups. He was able to increase visible coordination of tasks with repetition and grading activities. Medicine cups taken to room for him to work on manipulation as he has time. Pt seemed pleased with progress. Walked back to room with CGA, FWW and no LOB or wobble. Pt got into bed without help. Left up in bed, all needs met. Education OT Patient Education: Correct positioning, Progress toward Goal/Update tx plan, Purpose of tx/functional activities, Safety issues Teaching Recipient: Patient Teaching Methods: Discussion Response to Teaching: Verbalize Understanding, Return Demonstration, Reinforcement Needed OT Short Term Goals Short Term Goals Time Frame: Aug 21, 2020 Eatin Oral hygiene: 4 Toileting hygiene: 4 Shower/bathe self: 4 Upper body dressin Lower body dressin Putting on/taking off footwear: 4 OT Cloth Pattern Maker Goals Prison Goals Time Frame: Sep 04, 2020 Eating (QC): 6 Oral Hygiene (QC): 6 Toileting Hygiene (QC): 6 Shower/Bathe Self (QC): 6 Upper Body Dressing (QC): 6 Lower Body Dressing (QC): 6 On/Off Footwear (QC): 6 Additional Goals: 1-Demonstrate ADL Tasks, 2-Verbalize Understanding, 3- ImproveStrength/Danay 1=Demonstrate adherence to instructed precautions during ADL tasks. 2=Patient will verbalize/demonstrate understanding of assistive devices/modifications for ADL. 3=Patient will improve strength/tolerance for activity to enable patient to perform ADL's. OT Education/Plan Problem List/Assessment Pt would benefit from skilled OT to increase his independence in basic self care to allow him to safely return home to live with family. Discharge Recommendations Plan/Recommendations: Continue POC Treatment Plan/Plan of Care Patient would benefit from OT for education, treatment and training to promote independence in ADL's, mobility, safety and/or upper extremity function for ADL's. Plan of Care: ADL Retraining, Caregiver Training, Functional Mobility, Group Exercise/Act as Ind (education, exercise, coordination, funct mobility, socialization), UE Funct Exercise/Act, UE Neuromus Re-Ed/Coord Treatment Duration: Sep 04, 2020 Frequency: At least 5 of 7 days/Wk (IRF) Estimated Hrs Per Day: 1.5 hours per day Rehab Potential: Good Time/GCodes Start Time: 09:30 () Stop Time: 10:30 Total Time Billed (hr/min): 60 Billed Treatment Time visit, 10 minutes ADL, 50 minutes coordination MATHIEU TRUJILLO OT Aug 19, 2020 12:55
--- NOTE | 2020-08-19 14:34 | Physical Therapy Daily Note ---
PT Daily Note-Current Subjective Pt laying Supine in bed upon arrival. Pt agrees to PT but asks to use BR to start tx. Mental Status Patient Orientation: Person, Place, Time, Situation Transfers SCALE: Activities may be completed with or without assistive devices. 9-Yjblitrzit-fawgzjl completes the activity by him/herself with no assistance from a helper. 5-Set-up or Clean-up Assistance-helper sets up or cleans up; patient completes activity. [place] assists only prior to or following the activity. 4-Supervision or Touching Assistance-helper provides verbal cues and/or touching/steadying and/or contact guard assistance as patient completes activity. Assistance may be provided throughout the activity or intermittently. 3-Partial/Moderate Assistance-helper does LESS THAN HALF the effort. [place] lifts, holds or supports trunk or limbs, but provides less than half the effort. 2-Substantial/Maximal Assistance-helper does MORE THAN HALF the effort. [place] lifts or holds trunk or limbs and provides more than half the effort. 0-Crlzdicrp-esqgmk does ALL the effort. Patient does none of the effort to complete the activity. Or, the assistance of 2 or more helpers is required for the patient to complete the activity. If activity was not attempted, code reason: 7-Patient Refused. 9-Not Applicable-not attempted and the patient did not perform the activity before the current illness, exacerbation or injury. 10-Not Attempted due to Environmental Limitations-(lack of equipment, weather restraints, etc.). 88-Not Attempted due to Medical Conditions or Safety Concerns. Sit to Stand (QC): 4 Toilet Transfer (QC): 4 Weight Bearing Full Weight Bearing Full Weight Bearing Gait Training Does the Patient Walk?: Yes Distance: 50' Walk 10 feet (QC): 4 Walk 50 ft with 2 Turns(QC): 4 Gait Persons Needed: 1 Gait Assistive Device: FWW Exercises Supine Ex: Ankle pumps, Quad Set, Glut sets, Heel Slides, Short Arc Quads, Straight leg raise, Hip abd/add Supine Reps: 15 Seated Therapy Exercises: Ankle pumps, Long arc quads, Hip flexion Seated Reps: 15 Treatments TF to standing and uses BR. Pt takes RB, returning to EOB. Pt given written HEP for Seated & Supine EX. Pt lays Supine in bed and completes EX. GARMENT FINISHER gives instruction of Group and Weekly ARU Mtg since pt is unaware. All needs met, call light in hand. Assessment Current Status: Good Progress Pt is improving with strength but still unstable at times with amb. PT Short Term Goals Short Term Goals Time Frame: Aug 25, 2020 Roll Left & Right: 6 Sit to lyin Lying to sitting on side of be: 6 Sit to stand: 4 Chair/xtn-wl-ioxuz transfer: 4 Walk 150 feet: 4 PT Sales Stock Associate Goals [facility] Goals PT Sales Stock Associate Goals Time Frame: Sep 08, 2020 Roll Left & Right (QC): 6 Sit to Lying (QC): 6 Lying-Sitting on Side/Bed(QC): 6 Sit to Stand (QC): 6 Chair/Jif-ij-Lkepq Xfer(QC): 6 Toilet Transfer (QC): 6 Car Transfer (QC): 6 Does the Patient Walk: Yes Walk 10 feet (QC): 6 Walk 50ft with 2 Turns (QC): 6 Walk 150 ft (QC): 6 Walking 10ft on Uneven Surface: 6 1 Step (curb) (QC): 6 4 Steps (QC): 6 12 Steps (QC): 4 Picking up an Object (QC): 4 Does the Pt use WC or Scooter?: No Wheel 50 feet with 2 turns (QC: 9 Wheel 150 feet: 9 PT Plan Problem List Problem List: Safety Treatment/Plan Treatment Plan: Continue Plan of Care Treatment Plan: Bed Mobility, Education, Functional Activity Danay, Functional Strength, Group Therapy, Gait, Safety, Therapeutic Exercise, Transfers Treatment Duration: Sep 08, 2020 Frequency: At least 5 of 7 days/Wk (IRF) Estimated Hrs Per Day: 1.5 hours per day Patient and/or Family Agrees t: Yes Safety Risks/Education Patient Education: Issued Written HEP, Safety Issues Teaching Recipient: Patient Teaching Methods: Discussion Response to Teaching: Verbalize Understanding Time/GCodes Time In: 1100 Time Out: 1200 Total Billed Treatment Time: 60 Total Billed Treatment 1, EX x2 (30m) & FA x2 (30m) ROSETTE ANGELO GARMENT FINISHER Aug 19, 2020 14:34
--- NOTE | 2020-08-19 14:52 | Therapy Group Daily Note ---
Therapy Daily Group Note Patient Education Topic Energy Cons Exercises LE Seated Exercise, UE Exercise Session Ratio (pt:therapist): 3:1 Goal of Session: Energy Conservation Tech., UE/LE Strengthing Goal Met for this Session: Yes Pt Benefit of Group: Contributions to Others, F/U Use of Strategies @Home, Increased Functional Safety, Increased Functional Strength, Improved Cognition, Recognition of Peers, Socialization Other/Notes Pt ambulated using FWW to [facility] to participate in OT/PT group. Group consisted of introductions (name, place living, favorite summer activity), so cialization, seated B UE/LE exercise and energy conservation education. Pt introduced self appropriately and actively listened to peers. Pt able to complete B UE & LE exercises without difficulty. Pt acknowledged understanding of educational topic by giving own strategies and examples. After session, pt lying in bed with call light/phone in reach. All needs met in room. Start Time: 13:00 Stop Time: 14:00 Total Billed Treatment Time: 60 Total Billed Treatment 1, ROSETTE WHITAKER COLLECTIONS DIRECTOR Aug 19, 2020 14:52
[2020-08-19] MEDS ORDERED: MTP25TSR PO (15:25)
[2020-08-19] MEDS: ASCORBIC ACID (VIT C) 500 MG TABLET PO SCH (16:38)
[2020-08-19] MEDS: KCL 8 MEQ (MICRO K) TABLET PO SCH (18:34)
[2020-08-19] MEDS: DICLOFENAC 1% GEL 100 GM (VOLTAREN) TUBE TOP PRN (18:38)
[2020-08-19 20:17] VITALS: BP 164/69
[2020-08-19] MEDS: VITAMIN D3 25 MCG (1,000 UNITS) TABLET PO SCH (21:12)
[2020-08-20] MEDS: LEVOTHYROXINE 100 MCG (LEVOTHROID) TAB PO SCH (06:36)
[2020-08-20] MEDS: MULTIVIT W/MINERALS TAB (THERAGRAN M) PO SCH (06:36)
[2020-08-20] MEDS: CYANOCOBALAMIN 1,000 MCG (VITAMIN B-12) TABLET PO SCH (06:36)
[2020-08-20 08:00] VITALS: BP 136/78
[2020-08-20] MEDS: amLODIPine 5 MG (NORVASC) TAB PO SCH (08:29)
[2020-08-20] MEDS: FOLIC ACID 1 MG TAB PO SCH (08:29)
[2020-08-20] MEDS: GABAPENTIN 600 MG (NEURONTIN) TAB PO SCH ×2 (08:29→21:09)
[2020-08-20] MEDS: polyethylene glycoL POWDER 17 GM (MIRALAX) PACK PO SCH ×2 (08:29→19:41)
[2020-08-20] MEDS: SENNA W/DOCUSATE (SENOKOT S) TABLET PO SCH ×2 (08:30→19:41)
[2020-08-20] MEDS: DOCUSATE SODIUM 100 MG (COLACE) CAP PO SCH ×2 (08:30→19:41)
[2020-08-20] MEDS: TRIAMCINOLONE 0.1% CR (KENALOG) 80 GM TUBE TP SCH ×2 (08:57→21:09)
--- NOTE | 2020-08-20 11:08 | PM&R Progress Note ---
Subjective HPI/CC On Admission Date Seen by Provider: Aug 20, 2020 Time Seen by Provider: 11:15 Subjective/Events-last exam 08/20/20: Patient doing pretty well Right neck pain reported and Voltaren did not really help so will try K pad Rash is improved from triamcinolone cream No pain is reported 08/19/20: Patient doing pretty well Elevated liver enzymes from alcoholic hepatitis Bowels moved yesterday Colace and senna will be given Labs reviewed everything looked good except for elevated liver enzymes Settling in well Review of Systems General: Fatigue, Malaise Neurological: Weakness, Incoordination Objective Exam Vital Signs Vital Signs Date Time Temp Pulse Resp B/P (MAP) Pulse Ox O2 Delivery O2 Flow Rate FiO2 08/20/20 20:30 Room Air 08/20/20 20:00 36.7 71 16 149/72 (97) 93 Capillary Refill : General Appearance: No Apparent Distress, WD/WN, Chronically ill, Obese HEENT: PERRL/EOMI, Normal ENT Inspection, Pharynx Normal Neck: Full Range of Motion, Normal Inspection, Non Tender, Supple, Carotid Bruit Respiratory: Chest Non Tender, Lungs Clear, Normal Breath Sounds, No Accessory Muscle Use, No Respiratory Distress Cardiovascular: Regular Rate, Rhythm, No Edema, No Gallop, No JVD, No Murmur, Normal Peripheral Pulses Gastrointestinal: Normal Bowel Sounds, No Organomegaly, No Pulsatile Mass, Non Tender, Soft Back: Normal Inspection, No CVA Tenderness, No Vertebral Tenderness Extremity: Normal Capillary Refill, Normal Inspection, Normal Range of Motion, Non Tender, No Calf Tenderness, No Pedal Edema Neurologic/Psychiatric: Alert, Oriented x3, Normal Mood/Affect, loading dock hand II-XII Norm as Tested, Abnormal Gait, Motor Weakness (Generalized weakness) Skin: Normal Color, Warm/Dry Lymphatic: No Adenopathy Results/Procedures Lab Patient resulted labs reviewed. FIM Transfers Therapy Code Descriptions/Definitions Functional [place] Measure: 0=Not Assessed/NA 4=Minimal Assistance 1=Total Assistance 5=Supervision or Setup 2=Maximal Assistance 6=Modified [place] 3=Moderate Assistance 7=Complete IndependenceSCALE: Activities may be completed with or without assistive devices. 9-Syjzmsrewl-sjflccv completes the activity by him/herself with no assistance from a helper. 5-Set-up or Clean-up Assistance-helper sets up or cleans up; patient completes activity. [place] assists only prior to or following the activity. 4-Supervision or Touching Assistance-helper provides verbal cues and/or touching/steadying and/or contact guard assistance as patient completes activity. Assistance may be provided throughout the activity or intermittently. 3-Partial/Moderate Assistance-helper does LESS THAN HALF the effort. [place] lifts, holds or supports trunk or limbs, but provides less than half the effort. 2-Substantial/Maximal Assistance-helper does MORE THAN HALF the effort. [place] lifts or holds trunk or limbs and provides more than half the effort. 2-Vokffjkeh-pgyoyh does ALL the effort. Patient does none of the effort to complete the activity. Or, the assistance of 2 or more helpers is required for the patient to complete the activity. If activity was not attempted, code reason: 7-Patient Refused. 9-Not Applicable-not attempted and the patient did not perform the activity befo re the current illness, exacerbation or injury. 10-Not Attempted due to Environmental Limitations-(lack of equipment, weather re straints, etc.). 88-Not Attempted due to Medical Conditions or Safety Concerns. Roll Left to Right (QC): 6 Sit to Lying (QC): 4 Sit to Stand (QC): 4 Chair/Afu-kd-Nxwha Xfer(QC): 3 Car Transfer (QC): 4 Gait Training Does the Patient Walk?: Yes Distance: 50' Walk 10 feet (QC): 4 Walk 50 ft with 2 Turns(QC): 4 Walk 150 ft (QC): 3 Walking 10ft/uneven surface-QC: 3 Gait Persons Needed: 1 Gait Assistive Device: FWW Wheelchair Training Does the Pt Use a Wheelchair?: No Wheel 50 ft with 2 turns (QC): 9 Wheel 150 ft (QC): 9 Stair Training 1 Step (curb) (QC): 88 4 Steps (QC): 88 12 Steps (QC): 88 (will assess later today) Balance Picking up an Object (QC): 88 ADL-Treatment Eating (QC): 6 Oral Hygiene (QC): 6 Shower/Bathe Self (QC): 4 Upper Body Dressing (QC): 5 Lower Body Dressing (QC): 4 On/Off Footwear (QC): 5 Toileting Hygiene (QC): 4 Toilet Transfer (QC): 4 Assessment/Plan Assessment and Plan Assess & Plan/Chief Complaint Assessment: Hemorrhagic stroke Generalized weakness Alcoholism Hypothyroidism Oral tobacco use Advanced age Fall risk Plan: Inpatient rehab protocol Monitor labs Home meds Fall risk 08/19/2020: Continue protocol Monitor elevated liver enzymes from alcoholic hepatitis Await GGT added to labs 08/20/2020: Continue triamcinolone for nonspecific dermatitis on the back Continue inpatient rehab protocol Fall risk GGT significantly elevated at 485 consistent with alcoholism (1) CVA (cerebral vascular accident) (2) Hypothyroidism (3) Intracerebellar and posterior fossa hemorrhage Status: Acute (4) Chronic alcohol use Status: Acute (5) Generalized weakness Status: Acute CARMEN SALINAS DO Aug 20, 2020 11:07
--- NOTE | 2020-08-20 11:55 | Occupational Ther Daily Note ---
OT Current Status-Daily Note Subjective Pt seen in room, up in bed, agreeable to OT. No pain mentioned. Appearance Alert, cooperative ADL-Treatment Pt got up to EOB without assist and sit to stand SBA, FWW, with cues to push up rather than pull up with walker. Walked CGA, FWW to bathroom. Toilet transfer S BA, grab bars. Managed clothing and hygiene SBA. Transferred into shower SBA, using grab bars. No LOB observed with turns. . Pt undressed with SBA when standing to pull pants down. Sat to complete lower body undressing without cues, for safety. Pt completed shower, washing and drying all parts, with setup, SBA when standing to dry bottom. used grab bars, hand held shower, shower bench. Transferred CGA to chair with arms to dress. Donned pants and pulled them up with SBA, FWW. Setup with shirt and socks. Pt walked back to sit EOB with CGA, FWW, no LOB. Declined brushing teeth. Therapy Code Descriptions/Definitions Functional [place] Measure: 0=Not Assessed/NA 4=Minimal Assistance 1=Total Assistance 5=Supervision or Setup 2=Maximal Assistance 6=Modified [place] 3=Moderate Assistance 7=Complete IndependenceSCALE: Activities may be completed with or without assistive devices. 5-Wucrjahlej-jisyamb completes the activity by him/herself with no assistance from a helper. 5-Set-up or Clean-up Assistance-helper sets up or cleans up; patient completes activity. [place] assists only prior to or following the activity. 4-Supervision or Touching Assistance-helper provides verbal cues and/or touching/steadying and/or contact guard assistance as patient completes activity. Assistance may be provided throughout the activity or intermittently. 3-Partial/Moderate Assistance-helper does LESS THAN HALF the effort. [place] lifts, holds or supports trunk or limbs, but provides less than half the effort. 2-Substantial/Maximal Assistance-helper does MORE THAN HALF the effort. [place] lifts or holds trunk or limbs and provides more than half the effort. 7-Yakcuscwh-rhqnmc does ALL the effort. Patient does none of the effort to complete the activity. Or, the assistance of 2 or more helpers is required for the patient to complete the activity. If activity was not attempted, code reason: 7-Patient Refused. 9-Not Applicable-not attempted and the patient did not perform the activity before the current illness, exacerbation or injury. 10-Not Attempted due to Environmental Limitations-(lack of equipment, weather restraints, etc.). 88-Not Attempted due to Medical Conditions or Safety Concerns. Shower/Bathe Self (QC): 4 (SBA) Upper Body Dressing (QC): 5 Lower Body Dressing (QC): 4 (SBA) On/Off Footwear: 5 Toileting Hygiene (QC): 4 (SBA) Toilet Transfer (QC): 4 (SBA) Other Treatment Pt walked to gym CGA, FWW, no LOB observed. He completed 12 minutes bilat UE coordination with arms bike set at 20W resistance. Able to retrieve small beads in medium theraputty, for coordination. Worked with tossing erickson bags with R UE for coordination. Initially able to toss most erickson bags into basket, then practiced with basket farther away and in different planes of motion, with good success. Switched to ring toss, using 6" rings. Initially placed 3/8 rings, then with repetition, reaching 6/8 accuracy, with most errors at least touching base. Base moved farther away, with 3/8 initial accuracy, increasing to 6/8 with repetition. Pt also completed task in standing, with initially missing almost all rings. With repetition, he increased to 6/8 accuracy. Pt pleased with progr ess. All tasks to work on coordination and balance, as needed for ADLs. Pt walked back to room and transferred into bed with SBA, FWW. Pt provided with red theraband (medium resistance) and shown stretch exercise, focusing on even and controlled movements. Pt left up in bed, all needs met. Education OT Patient Education: Exercise program, Modified ADL techniques, Progress toward Goal/Update tx plan, Purpose of tx/functional activities, Safety issues, Transfer techniques Teaching Recipient: Patient Teaching Methods: Discussion Response to Teaching: Verbalize Understanding, Return Demonstration, Reinforcement Needed OT Short Term Goals Short Term Goals Time Frame: Aug 21, 2020 Eatin Oral hygiene: 4 Toileting hygiene: 4 Shower/bathe self: 4 Upper body dressin Lower body dressin Putting on/taking off footwear: 4 OT Guard Manager Goals Guard Manager Goals Time Frame: Sep 04, 2020 Eating (QC): 6 Oral Hygiene (QC): 6 Toileting Hygiene (QC): 6 Shower/Bathe Self (QC): 6 Upper Body Dressing (QC): 6 Lower Body Dressing (QC): 6 On/Off Footwear (QC): 6 Additional Goals: 1-Demonstrate ADL Tasks, 2-Verbalize Understanding, 3-ImproveStrength/Danay 1=Demonstrate adherence to instructed precautions during ADL tasks. 2=Patient will verbalize/demonstrate understanding of assistive devices/modifications for ADL. 3=Patient will improve strength/tolerance for activity to enable patient to perform ADL's. OT Education/Plan Problem List/Assessment Pt would benefit from skilled OT to increase his independence in basic self care to allow him to safely return home to live with family. Discharge Recommendations Plan/Recommendations: Continue POC Treatment Plan/Plan of Care Patient would benefit from OT for education, treatment and training to promote independence in ADL's, mobility, safety and/or upper extremity function for ADL's. Plan of Care: ADL Retraining, Caregiver Training, Functional Mobility, Group Exercise/Act as Ind (education, exercise, coordination, funct mobility, socialization), UE Funct Exercise/Act, UE Neuromus Re-Ed/Coord Treatment Duration: Sep 04, 2020 Frequency: At least 5 of 7 days/Wk (IRF) Estimated Hrs Per Day: 1.5 hours per day Rehab Potential: Good Time/GCodes Start Time: 09:30 Stop Time: 11:00 Total Time Billed (hr/min): 90 Billed Treatment Time visit, 30 minutes ADL, 60 minutes coordination MATHIEU TRUJILLO OT Aug 20, 2020 11:55
--- NOTE | 2020-08-20 15:21 | Physical Therapy Daily Note ---
PT Daily Note-Current Subjective [id number]: Pt laying Supine in bed upon arrival. Pt agrees to PT. [id number]: Pt laying Supine in bed upon arrival. Pt agrees to PT. Mental Status Patient Orientation: Person, Place, Time, Situation Transfers SCALE: Activities may be completed with or without assistive devices. 4-Oqubijykpj-xqzwgib completes the activity by him/herself with no assistance from a helper. 5-Set-up or Clean-up Assistance-helper sets up or cleans up; patient completes activity. [place] assists only prior to or following the activity. 4-Supervision or Touching Assistance-helper provides verbal cues and/or touching/steadying and/or contact guard assistance as patient completes activity. Assistance may be provided throughout the activity or intermittently. 3-Partial/Moderate Assistance-helper does LESS THAN HALF the effort. [place] lifts, holds or supports trunk or limbs, but provides less than half the effort. 2-Substantial/Maximal Assistance-helper does MORE THAN HALF the effort. [place] lifts or holds trunk or limbs and provides more than half the effort. 8-Pqchptsrn-siyyvb does ALL the effort. Patient does none of the effort to complete the activity. Or, the assistance of 2 or more helpers is required for the patient to complete the activity. If activity was not attempted, code reason: 7-Patient Refused. 9-Not Applicable-not attempted and the patient did not perform the activity b efore the current illness, exacerbation or injury. 10-Not Attempted due to Environmental Limitations-(lack of equipment, weather restraints, etc.). 88-Not Attempted due to Medical Conditions or Safety Concerns. Sit to Stand (QC): 5 Toilet Transfer (QC): 5 Weight Bearing Full Weight Bearing Full Weight Bearing Gait Training Does the Patient Walk?: Yes Distance: 450' Walk 10 feet (QC): 4 Walk 50 ft with 2 Turns(QC): 4 Walk 150 ft (QC): 4 Gait Persons Needed: 1 Gait Assistive Device: FWW Exercises Seated Therapy Exercises: Ankle pumps, Long arc quads, Hip flexion, Hip abd/add NuStep Minutes: 15 NuStep Workload: 5 Treatments [id number]: TF to standing and uses BR. Pt amb. in hallway followed by Seated EX and uses NuStep. Pt amb in hallway and returns to room to rest for lunch. All needs met, call light in hand. [id number]: Pt amb in hallway (~450')before returning to room to rest. Pt returns to Supine in bed with all needs met, call light in hand. Assessment Current Status: Good Progress Pt continues to work on balance and coordination especially during dynamic activity including walking. PT Short Term Goals Short Term Goals Time Frame: Aug 25, 2020 Roll Left & Right: 6 Sit to lyin Lying to sitting on side of be: 6 Sit to stand: 4 Chair/rec-ne-uxpsq transfer: 4 Walk 150 feet: 4 PT Care Home Goals Clinical Services Manager Goals PT Care Home Goals Time Frame: Sep 08, 2020 Roll Left & Right (QC): 6 Sit to Lying (QC): 6 Lying-Sitting on Side/Bed(QC): 6 Sit to Stand (QC): 6 Chair/Puk-pn-Hwvju Xfer(QC): 6 Toilet Transfer (QC): 6 Car Transfer (QC): 6 Does the Patient Walk: Yes Walk 10 feet (QC): 6 Walk 50ft with 2 Turns (QC): 6 Walk 150 ft (QC): 6 Walking 10ft on Uneven Surface: 6 1 Step (curb) (QC): 6 4 Steps (QC): 6 12 Steps (QC): 4 Picking up an Object (QC): 4 Does the Pt use WC or Scooter?: No Wheel 50 feet with 2 turns (QC: 9 Wheel 150 feet: 9 PT Plan Problem List Problem List: Balance, Gait Treatment/Plan Treatment Plan: Continue Plan of Care Treatment Plan: Bed Mobility, Education, Functional Activity Dnaay, Functional Strength, Group Therapy, Gait, Safety, Therapeutic Exercise, Transfers Treatment Duration: Sep 08, 2020 Frequency: At least 5 of 7 days/Wk (IRF) Estimated Hrs Per Day: 1.5 hours per day Patient and/or Family Agrees t: Yes Safety Risks/Education Patient Education: Gait Training, Correct Positioning, Safety Issues Teaching Recipient: Patient Teaching Methods: Discussion Response to Teaching: Verbalize Understanding Time/GCodes Time In: 1115 Time Out: 1215 Total Billed Treatment Time: 60 Total Billed Treatment [id number]: 1, GT (20m), FA (10m) & EX x2 (30m) [id number]: 1, FA (10m) & GT (20m) ROSETTE ANGELO LIFT TRUCK MECHANIC Aug 20, 2020 15:21
[2020-08-20] MEDS: KCL 8 MEQ (MICRO K) TABLET PO SCH (17:25)
[2020-08-20] MEDS: ASCORBIC ACID (VIT C) 500 MG TABLET PO SCH (17:25)
[2020-08-20 20:00] VITALS: BP 149/72
[2020-08-20] MEDS: VITAMIN D3 25 MCG (1,000 UNITS) TABLET PO SCH (21:09)
--- NOTE | 2020-08-21 06:16 | PM&R Progress Note ---
Subjective HPI/CC On Admission Date Seen by Provider: Aug 21, 2020 Time Seen by Provider: 11:00 Subjective/Events-last exam 08/21/2020: Patient doing really well Settling in well Participating with therapy Still asking for his oral tobacco Bowels are moving No concerns 08/20/20: Patient doing pretty well Right neck pain reported and Voltaren did not really help so will try K pad Rash is improved from triamcinolone cream No pain is reported 08/19/20: Patient doing pretty well Elevated liver enzymes from alcoholic hepatitis Bowels moved yesterday Colace and senna will be given Labs reviewed everything looked good except for elevated liver enzymes Settling in well Review of Systems General: Fatigue, Malaise Neurological: Weakness, Incoordination Objective Exam Vital Signs Vital Signs Date Time Temp Pulse Resp B/P (MAP) Pulse Ox O2 Delivery O2 Flow Rate FiO2 08/21/20 21:00 Room Air 08/21/20 20:00 36.4 75 16 137/97 (110) 94 Capillary Refill : General Appearance: No Apparent Distress, WD/WN, Chronically ill, Obese HEENT: PERRL/EOMI, Normal ENT Inspection, Pharynx Normal Neck: Full Range of Motion, Normal Inspection, Non Tender, Supple, Carotid Bruit Respiratory: Chest Non Tender, Lungs Clear, Normal Breath Sounds, No Accessory Muscle Use, No Respiratory Distress Cardiovascular: Regular Rate, Rhythm, No Edema, No Gallop, No JVD, No Murmur, Normal Peripheral Pulses Gastrointestinal: Normal Bowel Sounds, No Organomegaly, No Pulsatile Mass, Non Tender, Soft Back: Normal Inspection, No CVA Tenderness, No Vertebral Tenderness Extremity: Normal Capillary Refill, Normal Inspection, Normal Range of Motion, Non Tender, No Calf Tenderness, No Pedal Edema Neurologic/Psychiatric: Alert, Oriented x3, Normal Mood/Affect, hand coper II-XII Norm as Tested, Abnormal Gait, Motor Weakness (Generalized weakness) Skin: Normal Color, Warm/Dry Lymphatic: No Adenopathy Results/Procedures Lab Patient resulted labs reviewed. FIM Transfers Therapy Code Descriptions/Definitions Functional [place] Measure: 0=Not Assessed/NA 4=Minimal Assistance 1=Total Assistance 5=Supervision or Setup 2=Maximal Assistance 6=Modified [place] 3=Moderate Assistance 7=Complete IndependenceSCALE: Activities may be completed with or without assistive devices. 7-Cqqthshsun-zilprsh completes the activity by him/herself with no assistance from a helper. 5-Set-up or Clean-up Assistance-helper sets up or cleans up; patient completes activity. [place] assists only prior to or following the activity. 4-Supervision or Touching Assistance-helper provides verbal cues and/or touching/steadying and/or contact guard assistance as patient completes activity. Assistance may be provided throughout the activity or intermittently. 3-Partial/Moderate Assistance-helper does LESS THAN HALF the effort. [place] lifts, holds or supports trunk or limbs, but provides less than half the effort. 2-Substantial/Maximal Assistance-helper does MORE THAN HALF the effort. [place] lifts or holds trunk or limbs and provides more than half the effort. 8-Gifnllbtj-sjbupk does ALL the effort. Patient does none of the effort to complete the activity. Or, the assistance of 2 or more helpers is required for the patient to complete the activity. If activity was not attempted, code reason: 7-Patient Refused. 9-Not Applicable-not attempted and the patient did not perform the activity before the current illness, exacerbation or injury. 10-Not Attempted due to Environmental Limitations-(lack of equipment, weather restraints, etc.). 88-Not Attempted due to Medical Conditions or Safety Concerns. Roll Left to Right (QC): 6 Sit to Lying (QC): 4 Sit to Stand (QC): 5 Chair/Szs-lm-Scfdf Xfer(QC): 3 Car Transfer (QC): 4 Gait Training Does the Patient Walk?: Yes Distance: 450' Walk 10 feet (QC): 4 Walk 50 ft with 2 Turns(QC): 4 Walk 150 ft (QC): 4 Walking 10ft/uneven surface-QC: 3 Gait Persons Needed: 1 Gait Assistive Device: FWW Wheelchair Training Does the Pt Use a Wheelchair?: No Wheel 50 ft with 2 turns (QC): 9 Wheel 150 ft (QC): 9 Stair Training 1 Step (curb) (QC): 88 4 Steps (QC): 88 12 Steps (QC): 88 (will assess later today) Balance Picking up an Object (QC): 88 ADL-Treatment Eating (QC): 6 Oral Hygiene (QC): 6 Shower/Bathe Self (QC): 4 (SBA) Upper Body Dressing (QC): 5 Lower Body Dressing (QC): 4 (SBA) On/Off Footwear (QC): 5 Toileting Hygiene (QC): 4 (SBA) Toilet Transfer (QC): 4 (SBA) Assessment/Plan Assessment and Plan Assess & Plan/Chief Complaint Assessment: Hemorrhagic stroke Generalized weakness Alcoholism Hypothyroidism Oral tobacco use Advanced age Fall risk Plan: Inpatient rehab protocol Monitor labs Home meds Fall risk 08/19/2020: Continue protocol Monitor elevated liver enzymes from alcoholic hepatitis Await GGT added to labs 08/20/2020: Continue triamcinolone for nonspecific dermatitis on the back Continue inpatient rehab protocol Fall risk GGT significantly elevated at 485 consistent with alcoholism 08/21/2020: Continue therapy Cessation of oral tobacco counseled Monitor blood pressure closely Monitor for alcoholism effects (1) CVA (cerebral vascular accident) (2) Hypothyroidism (3) Intracerebellar and posterior fossa hemorrhage Status: Acute (4) Chronic alcohol use Status: Acute (5) Generalized weakness Status: Acute CARMEN SALINAS DO Aug 21, 2020 06:16
[2020-08-21] MEDS: MULTIVIT W/MINERALS TAB (THERAGRAN M) PO SCH (06:25)
[2020-08-21] MEDS: LEVOTHYROXINE 100 MCG (LEVOTHROID) TAB PO SCH (06:25)
[2020-08-21] MEDS: CYANOCOBALAMIN 1,000 MCG (VITAMIN B-12) TABLET PO SCH (06:25)
[2020-08-21 08:00] VITALS: BP 155/69
[2020-08-21] MEDS: FOLIC ACID 1 MG TAB PO SCH (09:52)
[2020-08-21] MEDS: polyethylene glycoL POWDER 17 GM (MIRALAX) PACK PO SCH ×2 (09:52→21:00)
[2020-08-21] MEDS: SENNA W/DOCUSATE (SENOKOT S) TABLET PO SCH ×2 (09:52→20:25)
[2020-08-21] MEDS: GABAPENTIN 600 MG (NEURONTIN) TAB PO SCH ×2 (09:52→20:25)
[2020-08-21] MEDS: DOCUSATE SODIUM 100 MG (COLACE) CAP PO SCH ×2 (09:52→20:25)
[2020-08-21] MEDS: TRIAMCINOLONE 0.1% CR (KENALOG) 80 GM TUBE TP SCH ×2 (09:52→20:26)
[2020-08-21] MEDS: amLODIPine 5 MG (NORVASC) TAB PO SCH (09:52)
[2020-08-21] MEDS: DICLOFENAC 1% GEL 100 GM (VOLTAREN) TUBE TOP PRN (09:53)
--- NOTE | 2020-08-21 11:54 | Occupational Ther Daily Note ---
OT Current Status-Daily Note Subjective Pt seen in room, up in bed, agreeable to OT. No pain mentioned. Appearance Alert, cooperative ADL-Treatment Pt declined ADLs Therapy Code Descriptions/Definitions Functional [place] Measure: 0=Not Assessed/NA 4=Minimal Assistance 1=Total Assistance 5=Supervision or Setup 2=Maximal Assistance 6=Modified [place] 3=Moderate Assistance 7=Complete IndependenceSCALE: Activities may be completed with or without assistive devices. 0-Bmjfncyijo-zoxtohd completes the activity by him/herself with no assistance from a helper. 5-Set-up or Clean-up Assistance-helper sets up or cleans up; patient completes activity. [place] assists only prior to or following the activity. 4-Supervision or Touching Assistance-helper provides verbal cues and/or touching/steadying and/or contact guard assistance as patient completes activity. Assistance may be provided throughout the activity or intermittently. 3-Partial/Moderate Assistance-helper does LESS THAN HALF the effort. [place] lifts, holds or supports trunk or limbs, but provides less than half the effort. 2-Substantial/Maximal Assistance-helper does MORE THAN HALF the effort. [place] lifts or holds trunk or limbs and provides more than half the effort. 3-Hdoikgzwy-ixozty does ALL the effort. Patient does none of the effort to complete the activity. Or, the assistance of 2 or more helpers is required for the patient to complete the activity. If activity was not attempted, code reason: 7-Patient Refused. 9-Not Applicable-not attempted and the patient did not perform the activity before the current illness, exacerbation or injury. 10-Not Attempted due to Environmental Limitations-(lack of equipment, weather restraints, etc.). 88-Not Attempted due to Medical Conditions or Safety Concerns. Other Treatment Pt got up from bed without help, walked CGA, FWW to gym with no LOB. He completed multiple coordination activities graded from larger to smaller. These included large grade clothespins, dominoes and small clothespins. Initially, with each task, his coordination was impaired but by end of each activity he was able to zero in on each game part and manipulate objects in his R hand. Pt walked back to room, left up in bed, all need met. Education OT Patient Education: Progress toward Goal/Update tx plan, Purpose of tx/functional activities Teaching Recipient: Patient Teaching Methods: Demonstration, Discussion Response to Teaching: Verbalize Understanding, Return Demonstration OT Short Term Goals Short Term Goals Time Frame: Aug 21, 2020 Eatin Oral hygiene: 4 Toileting hygiene: 4 Shower/bathe self: 4 Upper body dressin Lower body dressin Putting on/taking off footwear: 4 OT Marine Oiler Goals Marine Oiler Goals Time Frame: Sep 04, 2020 Eating (QC): 6 Oral Hygiene (QC): 6 Toileting Hygiene (QC): 6 Shower/Bathe Self (QC): 6 Upper Body Dressing (QC): 6 Lower Body Dressing (QC): 6 On/Off Footwear (QC): 6 Additional Goals: 1-Demonstrate ADL Tasks, 2-Verbalize Understanding, 3- ImproveStrength/Danay 1=Demonstrate adherence to instructed precautions during ADL tasks. 2=Patient will verbalize/demonstrate understanding of assistive devices/modifications for ADL. 3=Patient will improve strength/tolerance for activity to enable patient to perform ADL's. OT Education/Plan Problem List/Assessment Pt would benefit from skilled OT to increase his independence in basic self care to allow him to safely return home to live with family. Discharge Recommendations Plan/Recommendations: Continue POC Treatment Plan/Plan of Care Patient would benefit from OT for education, treatment and training to promote independence in ADL's, mobility, safety and/or upper extremity function for ADL's. Plan of Care: ADL Retraining, Caregiver Training, Functional Mobility, Group Exercise/Act as Ind (education, exercise, coordination, funct mobility, socialization), UE Funct Exercise/Act, UE Neuromus Re-Ed/Coord Treatment Duration: Sep 04, 2020 Frequency: At least 5 of 7 days/Wk (IRF) Estimated Hrs Per Day: 1.5 hours per day Rehab Potential: Good Time/GCodes Start Time: 10:15 Stop Time: 11:15 Total Time Billed (hr/min): 60 Billed Treatment Time visit, neuromotor 60 minutes MATHIEU TRUJILLO OT Aug 21, 2020 11:54
--- NOTE | 2020-08-21 12:34 | Physical Therapy Daily Note ---
PT Daily Note-Current Subjective Patient lying supine in bed upon PT arrival, agreeable to treatment. Reports 0/10 pain currently. Notes that he does feel "a little dizzy" upon sitting up, but it seems to be getting better. Pain Numeric Pain Scale: 0-No Pain Mental Status Patient Orientation: Person, Place, Time, Situation Transfers SCALE: Activities may be completed with or without assistive devices. 0-Amydmwslwf-srgsslm completes the activity by him/herself with no assistance from a helper. 5-Set-up or Clean-up Assistance-helper sets up or cleans up; patient completes activity. [place] assists only prior to or following the activity. 4-Supervision or Touching Assistance-helper provides verbal cues and/or touching/steadying and/or contact guard assistance as patient completes activity. Assistance may be provided throughout the activity or intermittently. 3-Partial/Moderate Assistance-helper does LESS THAN HALF the effort. [place] lifts, holds or supports trunk or limbs, but provides less than half the effort. 2-Substantial/Maximal Assistance-helper does MORE THAN HALF the effort. [place] lifts or holds trunk or limbs and provides more than half the effort. 3-Mqxeeiwmf-mqaanc does ALL the effort. Patient does none of the effort to complete the activity. Or, the assistance of 2 or more helpers is required for the patient to complete the activity. If activity was not attempted, code reason: 7-Patient Refused. 9-Not Applicable-not attempted and the patient did not perform the activity before the current illness, exacerbation or injury. 10-Not Attempted due to Environmental Limitations-(lack of equipment, weather restraints, etc.). 88-Not Attempted due to Medical Conditions or Safety Concerns. Roll Left & Right (QC): 4 Sit to Lying (QC): 4 Lying to Sitting/Side of Bed(Q: 4 Sit to Stand (QC): 4 Chair/Iyd-ie-Omilo Xfer(QC): 4 Toilet Transfer (QC): 4 Car Transfer (QC): 10 Weight Bearing Full Weight Bearing Full Weight Bearing Gait Training Does the Patient Walk?: Yes Distance: 300 Walk 10 feet (QC): 5 Walk 50 ft with 2 Turns(QC): 4 Walk 150 ft (QC): 4 Walking 10ft/uneven surface-QC: 10 Gait Persons Needed: 1 Gait Assistive Device: FWW Patient ambulates 300 feet with FWW with CGA and verbal cues for posture at times, safety and progression. He ambulates with fair overall gait pattern, however tends to fatigue at times, during which he requires a short standing rest break. Patient ambulates with fair overall posture and fair balance. Wheelchair Training Does the Pt Use a Wheelchair?: No Stair Training Stair Training: Handrails/: 2 handrails #of Steps: 20 1 Step (curb) (QC): 4 4 Steps (QC): 4 12 Steps (QC): 4 Stairs: Pattern: Reciprocal Balance Picking up an Object (QC): 4 Exercises Supine Ex: Ankle pumps, Quad Set, Glut sets, Straight leg raise Supine Reps: 20 Seated Therapy Exercises: Long arc quads, Shoulder Abd, Hip flexion, Hamstring Curls Seated Reps: 20 NuStep Minutes: 15 NuStep Workload: 6 Neuromuscular Patient performed dynamic sitting balance activities with focus on reaching outside of seated EDGAR and challenging his functional reach. Patient performed well with no assist beyond verbal cues for performance. Assessment Current Status: Good Progress Patient sitting in chair upon PT arrival, agreeable to treatment. Performed supine therapeutic activity well with no pain or or report of other symptoms. Performs bed mobility with SBA, functional transfer with CGA. Patient ambulates 300 feet with FWW with CGA and verbal cues for safety, posture and progression. Patient requires 3 standing rest breaks, however tolerates gait training well. Patient ascends/descends 4 steps x 5 reps with bilateral handrails and CGA with verbal cues for gait pattern and safety. Patient sitting on edge of bed post treatment with all needs met, nursing notified and call light in reach. PT Short Term Goals Short Term Goals Time Frame: Aug 25, 2020 Roll Left & Right: 6 Sit to lyin Lying to sitting on side of be: 6 Sit to stand: 4 Chair/syq-uz-vftck transfer: 4 Walk 150 feet: 4 PT Ems Manager Goals Senior Living Goals PT Senior Living Goals Time Frame: Sep 08, 2020 Roll Left & Right (QC): 6 Sit to Lying (QC): 6 Lying-Sitting on Side/Bed(QC): 6 Sit to Stand (QC): 6 Chair/Mab-my-Bbnik Xfer(QC): 6 Toilet Transfer (QC): 6 Car Transfer (QC): 6 Does the Patient Walk: Yes Walk 10 feet (QC): 6 Walk 50ft with 2 Turns (QC): 6 Walk 150 ft (QC): 6 Walking 10ft on Uneven Surface: 6 1 Step (curb) (QC): 6 4 Steps (QC): 6 12 Steps (QC): 4 Picking up an Object (QC): 4 Does the Pt use WC or Scooter?: No Wheel 50 feet with 2 turns (QC: 9 Wheel 150 feet: 9 PT Plan Problem List Problem List: Functional Strength, Safety, Balance, Gait Treatment/Plan Treatment Plan: Continue Plan of Care Treatment Plan: Bed Mobility, Education, Functional Activity Danay, Functional Strength, Group Therapy, Gait, Safety, Therapeutic Exercise, Transfers Treatment Duration: Sep 08, 2020 Frequency: At least 5 of 7 days/Wk (IRF) Estimated Hrs Per Day: 1.5 hours per day Patient and/or Family Agrees t: Yes Safety Risks/Education Patient Education: Gait Training, Transfer Techniques, Steps Teaching Recipient: Patient Teaching Methods: Demonstration, Discussion Response to Teaching: Verbalize Understanding Time/GCodes Time In: 1115 Time Out: 1215 Total Billed Treatment Time: 60 Total Billed Treatment Visit, Exercise (2), Gait (2) ALDO KRUEGER PT Aug 21, 2020 12:34
--- NOTE | 2020-08-21 14:30 | Therapy Group Daily Note ---
Therapy Daily Group Note Patient Education Topic Home Safety Exercises UE Exercise Session Ratio (pt:therapist): 4:1 Goal of Session: Home Safety Strategies Goal Met for this Session: Yes Pt Benefit of Group: Contributions to Others, F/U Use of Strategies @Home, Increased Functional Safety, Increased Functional Strength, Improved Cognition, Recognition of Peers, Socialization Other/Notes Pt ambulated using FWW to [facility] for OT/PT group. Group consisted of introductions (name, place, hobby), socialization, seated gross/fine motor exercises and environmental safety education. Pt introduced self appropriately and actively listened to peers. Pt demonstrated knowledge of educational topic by giving own examples and gesturing understanding. Pt able to complete fine motor and gross motor tasks without difficulty. After session, pt lying in bed with call light/phone in reach. All needs met in room. Start Time: 13:00 Stop Time: 14:00 Total Billed Treatment Time: 60 Total Billed Treatment 1-[facility] Aug 21, 2020 14:30
[2020-08-21] MEDS: KCL 8 MEQ (MICRO K) TABLET PO SCH (16:01)
[2020-08-21] MEDS: ASCORBIC ACID (VIT C) 500 MG TABLET PO SCH (16:01)
[2020-08-21 20:00] VITALS: BP 137/97
[2020-08-21] MEDS: VITAMIN D3 25 MCG (1,000 UNITS) TABLET PO SCH (20:25)
[2020-08-22] MEDS: ACETAMINOPHEN 325 MG TABLET PO PRN (00:27)
[2020-08-22] MEDS: CYANOCOBALAMIN 1,000 MCG (VITAMIN B-12) TABLET PO SCH (06:17)
[2020-08-22] MEDS: LEVOTHYROXINE 100 MCG (LEVOTHROID) TAB PO SCH (06:17)
[2020-08-22] MEDS: MULTIVIT W/MINERALS TAB (THERAGRAN M) PO SCH (06:17)
--- NOTE | 2020-08-22 06:35 | PM&R Progress Note ---
Subjective HPI/CC On Admission Date Seen by Provider: Aug 22, 2020 Time Seen by Provider: 12:00 Subjective/Events-last exam 08/22/2020: Patient doing really well Wants to go home soon Seems to be improving No pain is reported Bowels moved yesterday 08/21/2020: Patient doing really well Settling in well Participating with therapy Still asking for his oral tobacco Bowels are moving No concerns 08/20/20: Patient doing pretty well Right neck pain reported and Voltaren did not really help so will try K pad Rash is improved from triamcinolone cream No pain is reported 08/19/20: Patient doing pretty well Elevated liver enzymes from alcoholic hepatitis Bowels moved yesterday Colace and senna will be given Labs reviewed everything looked good except for elevated liver enzymes Settling in well Review of Systems Neurological: Weakness, Incoordination Objective Exam Vital Signs Vital Signs Date Time Temp Pulse Resp B/P (MAP) Pulse Ox O2 Delivery O2 Flow Rate FiO2 08/22/20 20:07 Room Air 08/22/20 20:00 36.8 88 17 139/71 (93) 94 Capillary Refill : General Appearance: No Apparent Distress, WD/WN, Chronically ill, Obese HEENT: PERRL/EOMI, Normal ENT Inspection, Pharynx Normal Neck: Full Range of Motion, Normal Inspection, Non Tender, Supple, Carotid Bruit Respiratory: Chest Non Tender, Lungs Clear, Normal Breath Sounds, No Accessory Muscle Use, No Respiratory Distress Cardiovascular: Regular Rate, Rhythm, No Edema, No Gallop, No JVD, No Murmur, Normal Peripheral Pulses Gastrointestinal: Normal Bowel Sounds, No Organomegaly, No Pulsatile Mass, Non Tender, Soft Back: Normal Inspection, No CVA Tenderness, No Vertebral Tenderness Extremity: Normal Capillary Refill, Normal Inspection, Normal Range of Motion, Non Tender, No Calf Tenderness, No Pedal Edema Neurologic/Psychiatric: Alert, Oriented x3, Normal Mood/Affect, 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 FIM Transfers Therapy Code Descriptions/Definitions Functional [place] Measure: 0=Not Assessed/NA 4=Minimal Assistance 1=Total Assistance 5=Supervision or Setup 2=Maximal Assistance 6=Modified [place] 3=Moderate Assistance 7=Complete IndependenceSCALE: Activities may be completed with or without assistive devices. 1-Ntfbcsfktv-sxtyeqm completes the activity by him/herself with no assistance from a helper. 5-Set-up or Clean-up Assistance-helper sets up or cleans up; patient completes activity. [place] assists only prior to or following the activity. 4-Supervision or Touching Assistance-helper provides verbal cues and/or touching/steadying and/or contact guard assistance as patient completes activity. Assistance may be provided throughout the activity or intermittently. 3-Partial/Moderate Assistance-helper does LESS THAN HALF the effort. [place] lifts, holds or supports trunk or limbs, but provides less than half the effort. 2-Substantial/Maximal Assistance-helper does MORE THAN HALF the effort. [place] lifts or holds trunk or limbs and provides more than half the effort. 7-Covcvrwur-fuycqc does ALL the effort. Patient does none of the effort to complete the activity. Or, the assistance of 2 or more helpers is required for the patient to complete the activity. If activity was not attempted, code reason: 7-Patient Refused. 9-Not Applicable-not attempted and the patient did not perform the activity before the current illness, exacerbation or injury. 10-Not Attempted due to Environmental Limitations-(lack of equipment, weather restraints, etc.). 88-Not Attempted due to Medical Conditions or Safety Concerns. Roll Left to Right (QC): 4 Sit to Lying (QC): 4 Sit to Stand (QC): 4 Chair/Jqv-bq-Pbgpm Xfer(QC): 4 Car Transfer (QC): 10 Gait Training Does the Patient Walk?: Yes Distance: 300 Walk 10 feet (QC): 5 Walk 50 ft with 2 Turns(QC): 4 Walk 150 ft (QC): 4 Walking 10ft/uneven surface-QC: 10 Gait Persons Needed: 1 Gait Assistive Device: FWW Wheelchair Training Does the Pt Use a Wheelchair?: No Wheel 50 ft with 2 turns (QC): 9 Wheel 150 ft (QC): 9 Stair Training Stair Training: Handrails/: 2 handrails #of Steps: 20 1 Step (curb) (QC): 4 4 Steps (QC): 4 12 Steps (QC): 4 Stairs: Pattern: Reciprocal Balance Picking up an Object (QC): 4 ADL-Treatment Eating (QC): 6 Oral Hygiene (QC): 6 Shower/Bathe Self (QC): 4 (SBA) Upper Body Dressing (QC): 5 Lower Body Dressing (QC): 4 (SBA) On/Off Footwear (QC): 5 Toileting Hygiene (QC): 4 (SBA) Toilet Transfer (QC): 4 (SBA) Assessment/Plan Assessment and Plan Assess & Plan/Chief Complaint Assessment: Hemorrhagic stroke Generalized weakness Alcoholism Hypothyroidism Oral tobacco use Advanced age Fall risk Plan: Inpatient rehab protocol Monitor labs Home meds Fall risk 08/19/2020: Continue protocol Monitor elevated liver enzymes from alcoholic hepatitis Await GGT added to labs 08/20/2020: Continue triamcinolone for nonspecific dermatitis on the back Continue inpatient rehab protocol Fall risk GGT significantly elevated at 485 consistent with alcoholism 08/21/2020: Continue therapy Cessation of oral tobacco counseled Monitor blood pressure closely Monitor for alcoholism effects 08/22/2020: Patient much improved Participating in therapy (1) CVA (cerebral vascular accident) (2) Hypothyroidism (3) Intracerebellar and posterior fossa hemorrhage Status: Acute (4) Chronic alcohol use Status: Acute (5) Generalized weakness Status: Acute CARMEN SALINAS DO Aug 22, 2020 06:35
[2020-08-22 07:25] VITALS: BP 162/82
--- NOTE | 2020-08-22 08:43 | Physical Therapy Daily Note ---
PT Daily Note-Current Subjective Pt laying Supine in bed upon arrival. Pt agrees to PT. Pain Location: No Pain Reported Mental Status Patient Orientation: Person, Place, Time, Situation Transfers SCALE: Activities may be completed with or without assistive devices. 8-Ojhmirddft-qymdjbp completes the activity by him/herself with no assistance from a helper. 5-Set-up or Clean-up Assistance-helper sets up or cleans up; patient completes activity. [place] assists only prior to or following the activity. 4-Supervision or Touching Assistance-helper provides verbal cues and/or touching/steadying and/or contact guard assistance as patient completes activity. Assistance may be provided throughout the activity or intermittently. 3-Partial/Moderate Assistance-helper does LESS THAN HALF the effort. [place] lifts, holds or supports trunk or limbs, but provides less than half the effort. 2-Substantial/Maximal Assistance-helper does MORE THAN HALF the effort. [place] lifts or holds trunk or limbs and provides more than half the effort. 3-Ppgppspvk-lgudlk does ALL the effort. Patient does none of the effort to complete the activity. Or, the assistance of 2 or more helpers is required for the patient to complete the activity. If activity was not attempted, code reason: 7-Patient Refused. 9-Not Applicable-not attempted and the patient did not perform the activity be fore the current illness, exacerbation or injury. 10-Not Attempted due to Environmental Limitations-(lack of equipment, weather restraints, etc.). 88-Not Attempted due to Medical Conditions or Safety Concerns. Sit to Stand (QC): 5 Toilet Transfer (QC): 5 Weight Bearing Full Weight Bearing Full Weight Bearing Gait Training Does the Patient Walk?: Yes Distance: 450' Walk 10 feet (QC): 4 Walk 50 ft with 2 Turns(QC): 4 Walk 150 ft (QC): 4 Gait Persons Needed: 1 Gait Assistive Device: FWW Pt takes standing RB as needed. Pt stubbles a bit with quick changes of direction or movement. VC given to encourage slowing down for improved body control during amb. Exercises Supine Ex: Ankle pumps, Quad Set, Glut sets, Heel Slides, Straight leg raise, Hip abd/add Supine Reps: 15 Treatments TF to standing and uses BR. Amb. in hallway with standing RB as needed. Pt returns to room to rest in bed. Pt completes Supine Ex in bed. All needs met, call light in hand. Assessment Current Status: Good Progress Pt still needs VC at times to slow down for improved body control during amb. PT Short Term Goals Short Term Goals Time Frame: Aug 25, 2020 Roll Left & Right: 6 Sit to lyin Lying to sitting on side of be: 6 Sit to stand: 4 Chair/tdk-wu-fducj transfer: 4 Walk 150 feet: 4 PT Long-Term Goals Helicopter Dispatcher Goals PT Helicopter Dispatcher Goals Time Frame: Sep 08, 2020 Roll Left & Right (QC): 6 Sit to Lying (QC): 6 Lying-Sitting on Side/Bed(QC): 6 Sit to Stand (QC): 6 Chair/Fbo-ls-Qkcco Xfer(QC): 6 Toilet Transfer (QC): 6 Car Transfer (QC): 6 Does the Patient Walk: Yes Walk 10 feet (QC): 6 Walk 50ft with 2 Turns (QC): 6 Walk 150 ft (QC): 6 Walking 10ft on Uneven Surface: 6 1 Step (curb) (QC): 6 4 Steps (QC): 6 12 Steps (QC): 4 Picking up an Object (QC): 4 Does the Pt use WC or Scooter?: No Wheel 50 feet with 2 turns (QC: 9 Wheel 150 feet: 9 PT Plan Problem List Problem List: Balance Treatment/Plan Treatment Plan: Continue Plan of Care Treatment Plan: Bed Mobility, Education, Functional Activity Danay, Functional Strength, Group Therapy, Gait, Safety, Therapeutic Exercise, Transfers Treatment Duration: Sep 08, 2020 Frequency: At least 5 of 7 days/Wk (IRF) Estimated Hrs Per Day: 1.5 hours per day Patient and/or Family Agrees t: Yes Safety Risks/Education Patient Education: Correct Positioning, Safety Issues Teaching Recipient: Patient Teaching Methods: Discussion Response to Teaching: Verbalize Understanding Time/GCodes Time In: 710 Time Out: 735 Total Billed Treatment Time: 25 Total Billed Treatment 1, EX (15m) & GT (10m) ROSETTE ANGELO [employer] E[employer] CONSULTANT Aug 22, 2020 08:43
[2020-08-22] MEDS: SENNA W/DOCUSATE (SENOKOT S) TABLET PO SCH ×2 (08:50→21:00)
[2020-08-22] MEDS: amLODIPine 5 MG (NORVASC) TAB PO SCH (08:50)
[2020-08-22] MEDS: GABAPENTIN 600 MG (NEURONTIN) TAB PO SCH ×2 (08:50→19:52)
[2020-08-22] MEDS: FOLIC ACID 1 MG TAB PO SCH (08:50)
[2020-08-22] MEDS: DOCUSATE SODIUM 100 MG (COLACE) CAP PO SCH ×2 (08:51→21:00)
[2020-08-22] MEDS: polyethylene glycoL POWDER 17 GM (MIRALAX) PACK PO SCH ×2 (08:51→21:00)
[2020-08-22] MEDS: TRIAMCINOLONE 0.1% CR (KENALOG) 80 GM TUBE TP SCH ×2 (09:24→19:54)
[2020-08-22] MEDS: ASCORBIC ACID (VIT C) 500 MG TABLET PO SCH (16:25)
[2020-08-22] MEDS: KCL 8 MEQ (MICRO K) TABLET PO SCH (16:25)
[2020-08-22] MEDS: VITAMIN D3 25 MCG (1,000 UNITS) TABLET PO SCH (19:52)
[2020-08-22 20:00] VITALS: BP 139/71
[2020-08-23] MEDS: LEVOTHYROXINE 100 MCG (LEVOTHROID) TAB PO SCH (06:32)
[2020-08-23] MEDS: CYANOCOBALAMIN 1,000 MCG (VITAMIN B-12) TABLET PO SCH (06:32)
[2020-08-23] MEDS: MULTIVIT W/MINERALS TAB (THERAGRAN M) PO SCH (06:32)
[2020-08-23 07:16] VITALS: BP 145/70
--- NOTE | 2020-08-23 09:44 | PM&R Progress Note ---
Subjective HPI/CC On Admission Date Seen by Provider: Aug 23, 2020 Time Seen by Provider: 10:45 Subjective/Events-last exam 08/23/2020: Patient having no major issues Not dizzy Right foot weakness is improved No falls Pain is improved 08/22/2020: Patient doing really well Wants to go home soon Seems to be improving No pain is reported Bowels moved yesterday 08/21/2020: Patient doing really well Settling in well Participating with therapy Still asking for his oral tobacco Bowels are moving No concerns 08/20/20: Patient doing pretty well Right neck pain reported and Voltaren did not really help so will try K pad Rash is improved from triamcinolone cream No pain is reported 08/19/20: Patient doing pretty well Elevated liver enzymes from alcoholic hepatitis Bowels moved yesterday Colace and senna will be given Labs reviewed everything looked good except for elevated liver enzymes Settling in well Review of Systems General: Fatigue, Malaise Neurological: Weakness, Incoordination Objective Exam Vital Signs Vital Signs Date Time Temp Pulse Resp B/P (MAP) Pulse Ox O2 Delivery O2 Flow Rate FiO2 08/23/20 08:48 Room Air 08/23/20 07:16 36.7 71 18 145/70 (95) 93 Capillary Refill : General Appearance: No Apparent Distress, WD/WN, Chronically ill, Obese HEENT: PERRL/EOMI, Normal ENT Inspection, Pharynx Normal Neck: Full Range of Motion, Normal Inspection, Non Tender, Supple, Carotid Bruit Respiratory: Chest Non Tender, Lungs Clear, Normal Breath Sounds, No Accessory Muscle Use, No Respiratory Distress Cardiovascular: Regular Rate, Rhythm, No Edema, No Gallop, No JVD, No Murmur, Normal Peripheral Pulses Gastrointestinal: Normal Bowel Sounds, No Organomegaly, No Pulsatile Mass, Non Tender, Soft Back: Normal Inspection, No CVA Tenderness, No Vertebral Tenderness Extremity: Normal Capillary Refill, Normal Inspection, Normal Range of Motion, Non Tender, No Calf Tenderness, No Pedal Edema Neurologic/Psychiatric: Alert, Oriented x3, Normal Mood/Affect, 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 FIM Transfers Therapy Code Descriptions/Definitions Functional [place] Measure: 0=Not Assessed/NA 4=Minimal Assistance 1=Total Assistance 5=Supervision or Setup 2=Maximal Assistance 6=Modified [place] 3=Moderate Assistance 7=Complete IndependenceSCALE: Activities may be completed with or without assistive devices. 6-Dkuostqopy-rjtmtwi completes the activity by him/herself with no assistance from a helper. 5-Set-up or Clean-up Assistance-helper sets up or cleans up; patient completes activity. [place] assists only prior to or following the activity. 4-Supervision or Touching Assistance-helper provides verbal cues and/or touching/steadying and/or contact guard assistance as patient completes activity. Assistance may be provided throughout the activity or intermittently. 3-Partial/Moderate Assistance-helper does LESS THAN HALF the effort. [place] lifts, holds or supports trunk or limbs, but provides less than half the effort. 2-Substantial/Maximal Assistance-helper does MORE THAN HALF the effort. [place] lifts or holds trunk or limbs and provides more than half the effort. 0-Gnrobnndd-zlebqr does ALL the effort. Patient does none of the effort to complete the activity. Or, the assistance of 2 or more helpers is required for the patient to complete the activity. If activity was not attempted, code reason: 7-Patient Refused. 9-Not Applicable-not attempted and the patient did not perform the activity bef ore the current illness, exacerbation or injury. 10-Not Attempted due to Environmental Limitations-(lack of equipment, weather r estraints, etc.). 88-Not Attempted due to Medical Conditions or Safety Concerns. Roll Left to Right (QC): 4 Sit to Lying (QC): 4 Sit to Stand (QC): 5 Chair/Mug-em-Gtgbb Xfer(QC): 4 Car Transfer (QC): 10 Gait Training Does the Patient Walk?: Yes Distance: 450' Walk 10 feet (QC): 4 Walk 50 ft with 2 Turns(QC): 4 Walk 150 ft (QC): 4 Walking 10ft/uneven surface-QC: 10 Gait Persons Needed: 1 Gait Assistive Device: FWW Wheelchair Training Does the Pt Use a Wheelchair?: No Wheel 50 ft with 2 turns (QC): 9 Wheel 150 ft (QC): 9 Stair Training Stair Training: Handrails/: 2 handrails #of Steps: 20 1 Step (curb) (QC): 4 4 Steps (QC): 4 12 Steps (QC): 4 Stairs: Pattern: Reciprocal Balance Picking up an Object (QC): 4 ADL-Treatment Eating (QC): 6 Oral Hygiene (QC): 6 Shower/Bathe Self (QC): 4 (SBA) Upper Body Dressing (QC): 5 Lower Body Dressing (QC): 4 (SBA) On/Off Footwear (QC): 5 Toileting Hygiene (QC): 4 (SBA) Toilet Transfer (QC): 4 (SBA) Assessment/Plan Assessment and Plan Assess & Plan/Chief Complaint Assessment: Hemorrhagic stroke Generalized weakness Alcoholism Hypothyroidism Oral tobacco use Advanced age Fall risk Plan: Inpatient rehab protocol Monitor labs Home meds Fall risk 08/19/2020: Continue protocol Monitor elevated liver enzymes from alcoholic hepatitis Await GGT added to labs 08/20/2020: Continue triamcinolone for nonspecific dermatitis on the back Continue inpatient rehab protocol Fall risk GGT significantly elevated at 485 consistent with alcoholism 08/21/2020: Continue therapy Cessation of oral tobacco counseled Monitor blood pressure closely Monitor for alcoholism effects 08/22/2020: Patient much improved Participating in therapy 08/23/2020: Monitor closely Monitor for falls Very impulsive (1) CVA (cerebral vascular accident) (2) Hypothyroidism (3) Intracerebellar and posterior fossa hemorrhage Status: Acute (4) Chronic alcohol use Status: Acute (5) Generalized weakness Status: Acute CARMEN SALINAS DO Aug 23, 2020 09:44
[2020-08-23] MEDS: FOLIC ACID 1 MG TAB PO SCH (10:05)
[2020-08-23] MEDS: GABAPENTIN 600 MG (NEURONTIN) TAB PO SCH ×2 (10:06→20:55)
[2020-08-23] MEDS: amLODIPine 5 MG (NORVASC) TAB PO SCH (10:06)
[2020-08-23] MEDS: DOCUSATE SODIUM 100 MG (COLACE) CAP PO SCH ×2 (10:07→20:55)
[2020-08-23] MEDS: polyethylene glycoL POWDER 17 GM (MIRALAX) PACK PO SCH ×2 (10:08→20:58)
[2020-08-23] MEDS: SENNA W/DOCUSATE (SENOKOT S) TABLET PO SCH ×2 (10:08→20:54)
[2020-08-23] MEDS: ACETAMINOPHEN 325 MG TABLET PO PRN ×2 (10:18→20:55)
[2020-08-23] MEDS: TRIAMCINOLONE 0.1% CR (KENALOG) 80 GM TUBE TP SCH (10:18)
[2020-08-23] MEDS: ASCORBIC ACID (VIT C) 500 MG TABLET PO SCH (17:33)
[2020-08-23] MEDS: KCL 8 MEQ (MICRO K) TABLET PO SCH (17:33)
[2020-08-23 20:00] VITALS: BP 130/61
[2020-08-23] MEDS: VITAMIN D3 25 MCG (1,000 UNITS) TABLET PO SCH (20:55)
[2020-08-24 05:28] LABS: BASOPHILS % (AUTO) 1 % (0-10); EOSINOPHILS # (AUTO) 0.2 10^3/uL (0.0-0.3); EOSINOPHILS % (AUTO) 3 % (0-10); HEMATOCRIT 45 % (40-54); HEMOGLOBIN 15.3 g/dL (13.3-17.7); LYMPHOCYTES # (AUTO) 1.9 10^3/uL (1.0-4.0); LYMPHOCYTES % (AUTO) 27 % (12-44); MEAN CORPUSCULAR HEMOGLOBIN 35 pg (25-34); MEAN CORPUSCULAR HGB CONC 34 g/dL (32-36); MEAN CORPUSCULAR VOLUME 102 fL (80-99); MEAN PLATELET VOLUME 9.9 fL (9.0-12.2); MONOCYTES # (AUTO) 0.6 10^3/uL (0.0-1.0); MONOCYTES % (AUTO) 8 % (0-12); NEUTROPHILS # (AUTO) 4.4 10^3/uL (1.8-7.8); NEUTROPHILS % (AUTO) 62 % (42-75); PLATELET COUNT 275 10^3/uL (130-400); WHITE BLOOD COUNT 7.2 10^3/uL (4.3-11.0)
[2020-08-24 05:53] LABS: PROTHROMBIN TIME PATIENT 13.3 SEC (12.2-14.7)
[2020-08-24 05:57] LABS: ALBUMIN 3.9 GM/DL (3.2-4.5); CHLORIDE 98 MMOL/L (98-107); POTASSIUM 3.5 MMOL/L (3.6-5.0); SODIUM 139 MMOL/L (135-145)
[2020-08-24 05:58] LABS: AMMONIA 29 UMOL/L (11-32)
[2020-08-24 05:59] LABS: CALCIUM 9.6 MG/DL (8.5-10.1)
[2020-08-24 06:00] LABS: GLUCOSE 103 MG/DL (70-105); TOTAL PROTEIN 7.2 GM/DL (6.4-8.2)
[2020-08-24 06:01] LABS: BILIRUBIN,TOTAL 0.8 MG/DL (0.1-1.0); CARBON DIOXIDE 28 MMOL/L (21-32)
[2020-08-24 06:03] LABS: ALKALINE PHOSPHATASE 121 U/L (40-136); CREATININE SERUM 1.13 MG/DL (0.60-1.30); GFR ESTIMATED > 60
[2020-08-24 06:04] LABS: BUN/CREATININE RATIO 8
[2020-08-24 06:06] LABS: ALANINE AMINOTRANSFERASE 74 U/L (0-55)
[2020-08-24] MEDS: CYANOCOBALAMIN 1,000 MCG (VITAMIN B-12) TABLET PO SCH (06:23)
[2020-08-24] MEDS: LEVOTHYROXINE 100 MCG (LEVOTHROID) TAB PO SCH (06:23)
[2020-08-24] MEDS: MULTIVIT W/MINERALS TAB (THERAGRAN M) PO SCH (06:23)
[2020-08-24] MEDS: ACETAMINOPHEN 325 MG TABLET PO PRN ×2 (06:24→20:08)
--- NOTE | 2020-08-24 06:35 | PM&R Progress Note ---
Subjective HPI/CC On Admission Date Seen by Provider: Aug 24, 2020 Time Seen by Provider: 10:45 Subjective/Events-last exam 08/24/2020: Pt doing really well K-pad discontinued since it doesnt help Right neck and back pain helped by Tyenol Potassium of 3.5 on Potassium supplement of 8 mEQ Rash on back much improved Kenalog 08/23/2020: Patient having no major issues Not dizzy Right foot weakness is improved No falls Pain is improved 08/22/2020: Patient doing really well Wants to go home soon Seems to be improving No pain is reported Bowels moved yesterday 08/21/2020: Patient doing really well Settling in well Participating with therapy Still asking for his oral tobacco Bowels are moving No concerns 08/20/20: Patient doing pretty well Right neck pain reported and Voltaren did not really help so will try K pad Rash is improved from triamcinolone cream No pain is reported 08/19/20: Patient doing pretty well Elevated liver enzymes from alcoholic hepatitis Bowels moved yesterday Colace and senna will be given Labs reviewed everything looked good except for elevated liver enzymes Settling in well Review of Systems General: Fatigue Neurological: Weakness, Incoordination Objective Exam Vital Signs Vital Signs Date Time Temp Pulse Resp B/P (MAP) Pulse Ox O2 Delivery O2 Flow Rate FiO2 08/24/20 20:13 Room Air 08/24/20 20:00 36.2 67 16 127/75 (92) 96 Capillary Refill : General Appearance: No Apparent Distress, WD/WN, Chronically ill, Obese HEENT: PERRL/EOMI, Normal ENT Inspection, Pharynx Normal Neck: Full Range of Motion, Normal Inspection, Non Tender, Supple, Carotid Bruit Respiratory: Chest Non Tender, Lungs Clear, Normal Breath Sounds, No Accessory Muscle Use, No Respiratory Distress Cardiovascular: Regular Rate, Rhythm, No Edema, No Gallop, No JVD, No Murmur, Normal Peripheral Pulses Gastrointestinal: Normal Bowel Sounds, No Organomegaly, No Pulsatile Mass, Non Tender, Soft Back: Normal Inspection, No CVA Tenderness, No Vertebral Tenderness Extremity: Normal Capillary Refill, Normal Inspection, Normal Range of Motion, Non Tender, No Calf Tenderness, No Pedal Edema Neurologic/Psychiatric: Alert, Oriented x3, Normal Mood/Affect, 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 FIM Transfers Therapy Code Descriptions/Definitions Functional [place] Measure: 0=Not Assessed/NA 4=Minimal Assistance 1=Total Assistance 5=Supervision or Setup 2=Maximal Assistance 6=Modified [place] 3=Moderate Assistance 7=Complete IndependenceSCALE: Activities may be completed with or without assistive devices. 0-Yueskftggv-wlhosfw completes the activity by him/herself with no assistance from a helper. 5-Set-up or Clean-up Assistance-helper sets up or cleans up; patient completes activity. [place] assists only prior to or following the activity. 4-Supervision or Touching Assistance-helper provides verbal cues and/or touching/steadying and/or contact guard assistance as patient completes activity. Assistance may be provided throughout the activity or intermittently. 3-Partial/Moderate Assistance-helper does LESS THAN HALF the effort. [place] lifts, holds or supports trunk or limbs, but provides less than half the effort. 2-Substantial/Maximal Assistance-helper does MORE THAN HALF the effort. [place] lifts or holds trunk or limbs and provides more than half the effort. 5-Cdodstfnt-mhkpmx does ALL the effort. Patient does none of the effort to complete the activity. Or, the assistance of 2 or more helpers is required for the patient to complete the activity. If activity was not attempted, code reason: 7-Patient Refused. 9-Not Applicable-not attempted and the patient did not perform the activity before the current illness, exacerbation or injury. 10-Not Attempted due to Environmental Limitations-(lack of equipment, weather restraints, etc.). 88-Not Attempted due to Medical Conditions or Safety Concerns. Roll Left to Right (QC): 4 Sit to Lying (QC): 4 Sit to Stand (QC): 5 Chair/Rlv-eh-Htdrw Xfer(QC): 4 Car Transfer (QC): 10 Gait Training Does the Patient Walk?: Yes Distance: 450' Walk 10 feet (QC): 4 Walk 50 ft with 2 Turns(QC): 4 Walk 150 ft (QC): 4 Walking 10ft/uneven surface-QC: 10 Gait Persons Needed: 1 Gait Assistive Device: FWW Wheelchair Training Does the Pt Use a Wheelchair?: No Wheel 50 ft with 2 turns (QC): 9 Wheel 150 ft (QC): 9 Stair Training Stair Training: Handrails/: 2 handrails #of Steps: 20 1 Step (curb) (QC): 4 4 Steps (QC): 4 12 Steps (QC): 4 Stairs: Pattern: Reciprocal Balance Picking up an Object (QC): 4 ADL-Treatment Eating (QC): 6 Oral Hygiene (QC): 6 Shower/Bathe Self (QC): 4 (SBA) Upper Body Dressing (QC): 5 Lower Body Dressing (QC): 4 (SBA) On/Off Footwear (QC): 5 Toileting Hygiene (QC): 4 (SBA) Toilet Transfer (QC): 4 (SBA) Assessment/Plan Assessment and Plan Assess & Plan/Chief Complaint Assessment: Hemorrhagic stroke Generalized weakness Alcoholism Hypothyroidism Oral tobacco use Advanced age Fall risk Plan: Inpatient rehab protocol Monitor labs Home meds Fall risk 08/19/2020: Continue protocol Monitor elevated liver enzymes from alcoholic hepatitis Await GGT added to labs 08/20/2020: Continue triamcinolone for nonspecific dermatitis on the back Continue inpatient rehab protocol Fall risk GGT significantly elevated at 485 consistent with alcoholism 08/21/2020: Continue therapy Cessation of oral tobacco counseled Monitor blood pressure closely Monitor for alcoholism effects 08/22/2020: Patient much improved Participating in therapy 08/23/2020: Monitor closely Monitor for falls Very impulsive 08/24/2020: Supportive care Tylenol for pain Fall risk (1) CVA (cerebral vascular accident) (2) Hypothyroidism (3) Intracerebellar and posterior fossa hemorrhage Status: Acute (4) Chronic alcohol use Status: Acute (5) Generalized weakness Status: Acute CARMEN SALINAS DO Aug 24, 2020 06:35
[2020-08-24 08:00] VITALS: BP 132/92
[2020-08-24] MEDS: FOLIC ACID 1 MG TAB PO SCH (08:25)
[2020-08-24] MEDS: SENNA W/DOCUSATE (SENOKOT S) TABLET PO SCH ×2 (08:25→20:07)
[2020-08-24] MEDS: DOCUSATE SODIUM 100 MG (COLACE) CAP PO SCH ×2 (08:25→20:07)
[2020-08-24] MEDS: amLODIPine 5 MG (NORVASC) TAB PO SCH (08:26)
[2020-08-24] MEDS: GABAPENTIN 600 MG (NEURONTIN) TAB PO SCH ×2 (08:26→20:08)
[2020-08-24] MEDS: polyethylene glycoL POWDER 17 GM (MIRALAX) PACK PO SCH ×2 (08:28→20:09)
--- NOTE | 2020-08-24 10:02 | Physical Therapy Daily Note ---
PT Daily Note-Current Subjective Patient agrees to PT. No c/o. Mental Status Patient Orientation: Normal For Age Transfers SCALE: Activities may be completed with or without assistive devices. 2-Xadzkulfvm-rihwkya completes the activity by him/herself with no assistance from a helper. 5-Set-up or Clean-up Assistance-helper sets up or cleans up; patient completes activity. [place] assists only prior to or following the activity. 4-Supervision or Touching Assistance-helper provides verbal cues and/or touching/steadying and/or contact guard assistance as patient completes activity. Assistance may be provided throughout the activity or intermittently. 3-Partial/Moderate Assistance-helper does LESS THAN HALF the effort. [place] lifts, holds or supports trunk or limbs, but provides less than half the effort. 2-Substantial/Maximal Assistance-helper does MORE THAN HALF the effort. [place] lifts or holds trunk or limbs and provides more than half the effort. 0-Fzmbtsvhe-zmdrqk does ALL the effort. Patient does none of the effort to c omplete the activity. Or, the assistance of 2 or more helpers is required for the patient to complete the activity. If activity was not attempted, code reason: 7-Patient Refused. 9-Not Applicable-not attempted and the patient did not perform the activity before the current illness, exacerbation or injury. 10-Not Attempted due to Environmental Limitations-(lack of equipment, weather restraints, etc.). 88-Not Attempted due to Medical Conditions or Safety Concerns. Roll Left & Right (QC): 6 Sit to Lying (QC): 6 Lying to Sitting/Side of Bed(Q: 6 Sit to Stand (QC): 4 (SBA) Chair/Rbe-hh-Zeuzc Xfer(QC): 4 (SBA) Toilet Transfer (QC): 4 (SBA) Weight Bearing Full Weight Bearing Full Weight Bearing Gait Training Does the Patient Walk?: Yes Distance: 300' x 4 Walk 10 feet (QC): 4 (SBA) Walk 50 ft with 2 Turns(QC): 4 (SBA) Walk 150 ft (QC): 4 (SBA) Gait Assistive Device: FWW no episodes of LOB on this date. Will have patient put shoes on to ambulate to improve function Exercises Supine Ex: Ankle pumps, Quad Set, Glut sets, Heel Slides, Straight leg raise Supine Reps: 15 Seated Therapy Exercises: Ankle pumps, Long arc quads, Hip flexion Seated Reps: 15 Standing: Heel/toe raises, Marching, Mini squats Standing Reps: 15 NuStep Minutes: 15 NuStep Workload: 3 (to improve safe functional mobility) Assessment Patient tolerated treatment well and returned to bed with needs met. Patient report he wants to go home soon. PT Short Term Goals Short Term Goals Time Frame: Aug 25, 2020 Roll Left & Right: 6 Sit to lyin Lying to sitting on side of be: 6 Sit to stand: 4 Chair/rvu-no-iysvt transfer: 4 Walk 150 feet: 4 PT Mcc Goals Mcc Goals PT Disaster Recovery Manager Goals Time Frame: Sep 08, 2020 Roll Left & Right (QC): 6 Sit to Lying (QC): 6 Lying-Sitting on Side/Bed(QC): 6 Sit to Stand (QC): 6 Chair/Rxy-lx-Nigcq Xfer(QC): 6 Toilet Transfer (QC): 6 Car Transfer (QC): 6 Does the Patient Walk: Yes Walk 10 feet (QC): 6 Walk 50ft with 2 Turns (QC): 6 Walk 150 ft (QC): 6 Walking 10ft on Uneven Surface: 6 1 Step (curb) (QC): 6 4 Steps (QC): 6 12 Steps (QC): 4 Picking up an Object (QC): 4 Does the Pt use WC or Scooter?: No Wheel 50 feet with 2 turns (QC: 9 Wheel 150 feet: 9 PT Plan Treatment/Plan Treatment Plan: Continue Plan of Care Treatment Plan: Bed Mobility, Education, Functional Activity Danay, Functional Strength, Group Therapy, Gait, Safety, Therapeutic Exercise, Transfers Treatment Duration: Sep 08, 2020 Frequency: At least 5 of 7 days/Wk (IRF) Estimated Hrs Per Day: 1.5 hours per day Patient and/or Family Agrees t: Yes Time/GCodes Time In: 856 Time Out: 956 Total Billed Treatment Time: 60 Total Billed Treatment 1 visit EX x 2 30 min GT x 2 30 min MARTIN SEVILLA PT Aug 24, 2020 10:02
--- NOTE | 2020-08-24 12:57 | Occupational Ther Daily Note ---
OT Current Status-Daily Note Subjective Pt seen in room, up in bed, agreeable to OT. No pain mentioned. Appearance Alert, cooperative ADL-Treatment Pt declined ADLs, stating that his usual shower day is Monday. He does not bathe every day at home. Therapy Code Descriptions/Definitions Functional [place] Measure: 0=Not Assessed/NA 4=Minimal Assistance 1=Total Assistance 5=Supervision or Setup 2=Maximal Assistance 6=Modified [place] 3=Moderate Assistance 7=Complete IndependenceSCALE: Activities may be completed with or without assistive devices. 3-Ghyemtywxh-wdvryuj completes the activity by him/herself with no assistance from a helper. 5-Set-up or Clean-up Assistance-helper sets up or cleans up; patient completes activity. [place] assists only prior to or following the activity. 4-Supervision or Touching Assistance-helper provides verbal cues and/or touching/steadying and/or contact guard assistance as patient completes activity. Assistance may be provided throughout the activity or intermittently. 3-Partial/Moderate Assistance-helper does LESS THAN HALF the effort. [place] lifts, holds or supports trunk or limbs, but provides less than half the effort. 2-Substantial/Maximal Assistance-helper does MORE THAN HALF the effort. [place] lifts or holds trunk or limbs and provides more than half the effort. 4-Tnznhgjbs-gzifjk does ALL the effort. Patient does none of the effort to complete the activity. Or, the assistance of 2 or more helpers is required for the patient to complete the activity. If activity was not attempted, code reason: 7-Patient Refused. 9-Not Applicable-not attempted and the patient did not perform the activity before the current illness, exacerbation or injury. 10-Not Attempted due to Environmental Limitations-(lack of equipment, weather restraints, etc.). 88-Not Attempted due to Medical Conditions or Safety Concerns. Other Treatment Pt walked to gym with SBA, FWW, no LOB. He completed 14 minutes bilat coordination on arm bike set at 30W resistance, with one brief recovery period midpoint. Movements were smooth and equal. Also manipulated and stacked medicine cups, with a little trouble "zeroing in" on cups on table and manipulating/turning them in his hand. Completed additional coordination tasks including picking up flat objects and placing/removing golf pegs. Also placed and manipulated cards from a deck, all with decreased accuracy of reach but improving with repetitions. As needed for self care and leisure activities, as well as writing. He stated that he has tried writing and had some difficulty with legibility. Discussed games and activities that he might do at home. Pt walked back to room with SBA and with no LOB until his last step sidestepping to get into bed, when he lost balance toward his L side, with OT helping to correct it. Pt left up in bed, all needs met. Education OT Patient Education: Home exercise program, Progress toward Goal/Update tx plan, Purpose of tx/functional activities, Safety issues Teaching Recipient: Patient Teaching Methods: Discussion Response to Teaching: Verbalize Understanding, Return Demonstration OT Short Term Goals Short Term Goals Time Frame: Aug 21, 2020 Eatin Oral hygiene: 4 Toileting hygiene: 4 Shower/bathe self: 4 Upper body dressin Lower body dressin Putting on/taking off footwear: 4 OT Software Configuration Analyst Goals Intermediate Goals Time Frame: Sep 04, 2020 Eating (QC): 6 Oral Hygiene (QC): 6 Toileting Hygiene (QC): 6 Shower/Bathe Self (QC): 6 Upper Body Dressing (QC): 6 Lower Body Dressing (QC): 6 On/Off Footwear (QC): 6 Additional Goals: 1-Demonstrate ADL Tasks, 2-Verbalize Understanding, 3- ImproveStrength/Danay 1=Demonstrate adherence to instructed precautions during ADL tasks. 2=Patient will verbalize/demonstrate understanding of assistive devices/modifications for ADL. 3=Patient will improve strength/tolerance for activity to enable patient to perform ADL's. OT Education/Plan Problem List/Assessment Pt would benefit from skilled OT to increase his independence in basic self care to allow him to safely return home to live with family. Discharge Recommendations Plan/Recommendations: Continue POC Treatment Plan/Plan of Care Patient would benefit from OT for education, treatment and training to promote independence in ADL's, mobility, safety and/or upper extremity function for ADL's. Plan of Care: ADL Retraining, Caregiver Training, Functional Mobility, Group Exercise/Act as Ind (education, exercise, coordination, funct mobility, socialization), UE Funct Exercise/Act, UE Neuromus Re-Ed/Coord Treatment Duration: Sep 04, 2020 Frequency: At least 5 of 7 days/Wk (IRF) Estimated Hrs Per Day: 1.5 hours per day Rehab Potential: Good Time/GCodes Start Time: 10:15 Stop Time: 11:15 Total Time Billed (hr/min): 60 Billed Treatment Time visit, 60 minutes neuromotor MATHIEU TRUJILLO OT Aug 24, 2020 12:57
--- NOTE | 2020-08-24 14:29 | Therapy Group Daily Note ---
Therapy Daily Group Note Patient Education Topic Home Safety, Exercises Exercises LE Seated Exercise, UE Exercise Session Ratio (pt:therapist): 4:1 Goal of Session: Home Safety Strategies, UE/LE Strengthing Goal Met for this Session: Yes Pt Benefit of Group: Contributions to Others, F/U Use of Strategies @Home, Increased Functional Safety, Increased Functional Strength, Improved Cognition, Recognition of Peers, Socialization Other/Notes Pt ambulated using FWW to therapy gym for OT/PT group. Group consisted of introductions (name and ice breaker questions), socialization, seated B UE/LE exercises, critical thinking activity and memory of home safety education. Pt introduced self appropriately and actively listened to peers. Pt able to complete B/L UE exercises. Pt participated in critical thinking activity. Pt was able to give own strategies and experience with home safety education. After therapy, pt lying in bed with call light/phone in reach. All needs met in room. Start Time: 13:00 Stop Time: 14:00 Total Billed Treatment Time: 60 Total Billed Treatment 1-[facility] ELLIOT BANUELOS Aug 24, 2020 14:29
[2020-08-24] MEDS: KCL 8 MEQ (MICRO K) TABLET PO SCH (16:47)
[2020-08-24] MEDS: ASCORBIC ACID (VIT C) 500 MG TABLET PO SCH (16:47)
[2020-08-24 20:00] VITALS: BP 127/75
[2020-08-24] MEDS: VITAMIN D3 25 MCG (1,000 UNITS) TABLET PO SCH (20:07)
[2020-08-25] MEDS: MULTIVIT W/MINERALS TAB (THERAGRAN M) PO SCH (06:16)
[2020-08-25] MEDS: ACETAMINOPHEN 325 MG TABLET PO PRN ×2 (06:17→20:46)
[2020-08-25] MEDS: CYANOCOBALAMIN 1,000 MCG (VITAMIN B-12) TABLET PO SCH (06:17)
[2020-08-25] MEDS: LEVOTHYROXINE 100 MCG (LEVOTHROID) TAB PO SCH (06:17)
--- NOTE | 2020-08-25 06:39 | PM&R Progress Note ---
Subjective HPI/CC On Admission Date Seen by Provider: Aug 25, 2020 Time Seen by Provider: 10:30 Subjective/Events-last exam 08/25/2020: Pt doing pretty well Working with therapy Left knee buckled a bit but he is sound okay No issues 08/24/2020: Pt doing really well K-pad discontinued since it doesnt help Right neck and back pain helped by Tyenol Potassium of 3.5 on Potassium supplement of 8 mEQ Rash on back much improved Kenalog 08/23/2020: Patient having no major issues Not dizzy Right foot weakness is improved No falls Pain is improved 08/22/2020: Patient doing really well Wants to go home soon Seems to be improving No pain is reported Bowels moved yesterday 08/21/2020: Patient doing really well Settling in well Participating with therapy Still asking for his oral tobacco Bowels are moving No concerns 08/20/20: Patient doing pretty well Right neck pain reported and Voltaren did not really help so will try K pad Rash is improved from triamcinolone cream No pain is reported 08/19/20: Patient doing pretty well Elevated liver enzymes from alcoholic hepatitis Bowels moved yesterday Colace and senna will be given Labs reviewed everything looked good except for elevated liver enzymes Settling in well Review of Systems General: Fatigue Neurological: Weakness, Incoordination Objective Exam Vital Signs Vital Signs Date Time Temp Pulse Resp B/P (MAP) Pulse Ox O2 Delivery O2 Flow Rate FiO2 08/25/20 20:50 Room Air 08/25/20 20:00 36.3 67 16 147/69 (95) 94 Capillary Refill : General Appearance: No Apparent Distress, WD/WN, Chronically ill, Obese HEENT: PERRL/EOMI, Normal ENT Inspection, Pharynx Normal Neck: Full Range of Motion, Normal Inspection, Non Tender, Supple, Carotid Bruit Respiratory: Chest Non Tender, Lungs Clear, Normal Breath Sounds, No Accessory Muscle Use, No Respiratory Distress Cardiovascular: Regular Rate, Rhythm, No Edema, No Gallop, No JVD, No Murmur, Normal Peripheral Pulses Gastrointestinal: Normal Bowel Sounds, No Organomegaly, No Pulsatile Mass, Non Tender, Soft Back: Normal Inspection, No CVA Tenderness, No Vertebral Tenderness Extremity: Normal Capillary Refill, Normal Inspection, Normal Range of Motion, Non Tender, No Calf Tenderness, No Pedal Edema Neurologic/Psychiatric: Alert, Oriented x3, Normal Mood/Affect, brush cleaner II-XII Norm as Tested, Abnormal Gait, Motor Weakness (Generalized weakness) Skin: Normal Color, Warm/Dry Lymphatic: No Adenopathy Results/Procedures Lab Patient resulted labs reviewed. FIM Transfers Therapy Code Descriptions/Definitions Functional [place] Measure: 0=Not Assessed/NA 4=Minimal Assistance 1=Total Assistance 5=Supervision or Setup 2=Maximal Assistance 6=Modified [place] 3=Moderate Assistance 7=Complete IndependenceSCALE: Activities may be completed with or without assistive devices. 3-Oocmhgmlma-sipipgd completes the activity by him/herself with no assistance from a helper. 5-Set-up or Clean-up Assistance-helper sets up or cleans up; patient completes activity. [place] assists only prior to or following the activity. 4-Supervision or Touching Assistance-helper provides verbal cues and/or touching/steadying and/or contact guard assistance as patient completes activity. Assistance may be provided throughout the activity or intermittently. 3-Partial/Moderate Assistance-helper does LESS THAN HALF the effort. [place] lifts, holds or supports trunk or limbs, but provides less than half the effort. 2-Substantial/Maximal Assistance-helper does MORE THAN HALF the effort. [place] lifts or holds trunk or limbs and provides more than half the effort. 5-Ghrkvcwjj-gvqncl does ALL the effort. Patient does none of the effort to complete the activity. Or, the assistance of 2 or more helpers is required for the patient to complete the activity. If activity was not attempted, code reason: 7-Patient Refused. 9-Not Applicable-not attempted and the patient did not perform the activity before the current illness, exacerbation or injury. 10-Not Attempted due to Environmental Limitations-(lack of equipment, weather restraints, etc.). 88-Not Attempted due to Medical Conditions or Safety Concerns. Roll Left to Right (QC): 6 Sit to Lying (QC): 6 Sit to Stand (QC): 4 (SBA) Chair/Wld-gj-Bnybj Xfer(QC): 4 (SBA) Car Transfer (QC): 10 Gait Training Does the Patient Walk?: Yes Distance: 300' x 4 Walk 10 feet (QC): 4 (SBA) Walk 50 ft with 2 Turns(QC): 4 (SBA) Walk 150 ft (QC): 4 (SBA) Walking 10ft/uneven surface-QC: 10 Gait Persons Needed: 1 Gait Assistive Device: FWW Wheelchair Training Does the Pt Use a Wheelchair?: No Wheel 50 ft with 2 turns (QC): 9 Wheel 150 ft (QC): 9 Stair Training Stair Training: Handrails/: 2 handrails #of Steps: 20 1 Step (curb) (QC): 4 4 Steps (QC): 4 12 Steps (QC): 4 Stairs: Pattern: Reciprocal Balance Picking up an Object (QC): 4 ADL-Treatment Eating (QC): 6 Oral Hygiene (QC): 6 Shower/Bathe Self (QC): 4 (SBA) Upper Body Dressing (QC): 5 Lower Body Dressing (QC): 4 (SBA) On/Off Footwear (QC): 5 Toileting Hygiene (QC): 4 (SBA) Toilet Transfer (QC): 4 (SBA) Assessment/Plan Assessment and Plan Assess & Plan/Chief Complaint Assessment: Hemorrhagic stroke Generalized weakness Alcoholism Hypothyroidism Oral tobacco use Advanced age Fall risk Plan: Inpatient rehab protocol Monitor labs Home meds Fall risk 08/19/2020: Continue protocol Monitor elevated liver enzymes from alcoholic hepatitis Await GGT added to labs 08/20/2020: Continue triamcinolone for nonspecific dermatitis on the back Continue inpatient rehab protocol Fall risk GGT significantly elevated at 485 consistent with alcoholism 08/21/2020: Continue therapy Cessation of oral tobacco counseled Monitor blood pressure closely Monitor for alcoholism effects 08/22/2020: Patient much improved Participating in therapy 08/23/2020: Monitor closely Monitor for falls Very impulsive 08/24/2020: Supportive care Tylenol for pain Fall risk 08/25/2020: Supportive care Intense therapy Monitor closely (1) CVA (cerebral vascular accident) (2) Hypothyroidism (3) Intracerebellar and posterior fossa hemorrhage Status: Acute (4) Chronic alcohol use Status: Acute (5) Generalized weakness Status: Acute CARMEN SALINAS DO Aug 25, 2020 06:39
[2020-08-25 07:55] VITALS: BP 137/63
[2020-08-25] MEDS: SENNA W/DOCUSATE (SENOKOT S) TABLET PO SCH ×2 (08:14→20:45)
[2020-08-25] MEDS: GABAPENTIN 600 MG (NEURONTIN) TAB PO SCH ×2 (08:15→20:45)
[2020-08-25] MEDS: FOLIC ACID 1 MG TAB PO SCH (08:15)
[2020-08-25] MEDS: DOCUSATE SODIUM 100 MG (COLACE) CAP PO SCH ×2 (08:15→20:46)
[2020-08-25] MEDS: amLODIPine 5 MG (NORVASC) TAB PO SCH (08:15)
[2020-08-25] MEDS: polyethylene glycoL POWDER 17 GM (MIRALAX) PACK PO SCH ×2 (08:16→20:47)
--- NOTE | 2020-08-25 09:20 | Occupational Ther Daily Note ---
OT Current Status-Daily Note Subjective Pt laying in bed, agreeable to OT Tx. Pt does not report any pain during tx. Mental Status/Objective Patient Orientation: Normal For Age ADL-Treatment Therapy Code Descriptions/Definitions Functional [place] Measure: 0=Not Assessed/NA 4=Minimal Assistance 1=Total Assistance 5=Supervision or Setup 2=Maximal Assistance 6=Modified [place] 3=Moderate Assistance 7=Complete IndependenceSCALE: Activities may be completed with or without assistive devices. 1-Edgoafvuep-ssjiiwa completes the activity by him/herself with no assistance from a helper. 5-Set-up or Clean-up Assistance-helper sets up or cleans up; patient completes activity. [place] assists only prior to or following the activity. 4-Supervision or Touching Assistance-helper provides verbal cues and/or touching/steadying and/or contact guard assistance as patient completes activity. Assistance may be provided throughout the activity or intermittently. 3-Partial/Moderate Assistance-helper does LESS THAN HALF the effort. [place] lifts, holds or supports trunk or limbs, but provides less than half the effort. 2-Substantial/Maximal Assistance-helper does MORE THAN HALF the effort. [place] lifts or holds trunk or limbs and provides more than half the effort. 9-Dmtuoitxr-coycqh does ALL the effort. Patient does none of the effort to complete the activity. Or, the assistance of 2 or more helpers is required for the patient to complete the activity. If activity was not attempted, code reason: 7-Patient Refused. 9-Not Applicable-not attempted and the patient did not perform the activity before the current illness, exacerbation or injury. 10-Not Attempted due to Environmental Limitations-(lack of equipment, weather restraints, etc.). 88-Not Attempted due to Medical Conditions or Safety Concerns. Eating (QC): 6 (IND per pt report) Oral Hygiene (QC): 7 (Pt declined) Shower/Bathe Self (QC): 6 (Pt IND with task seated on SC. Pt able to adjust water temperature as needed and washed/dried all parts.) Upper Body Dressing (QC): 6 (Pt gathered clothes from closet, doff/don independently.) Lower Body Dressing (QC): 6 (Pt gathered clothing from closet, don/doff pants IND) On/Off Footwear: 6 (IND with gripper socks) Toileting Hygiene (QC): 7 Toilet Transfer (QC): 7 Other Treatment Pt laying in bed, transferred supine to sit EOB. Pt used FWW to ambulate around room to gather clothing, then transferred into bathroom to chair. Pt doffed clothes at chair, transferred onto SC. Pt adjusted water temperature, washing/drying all parts. Pt transferred back to chair to don clothes. Pt used FWW to perform functional mobility to therapy gym. OT tx with focus on fine motor manipulation tasks. Pt picked up washers one at a time in R hand, using in hand manipulation to flip washer over to other side. Pt completed task x16 reps x8 washers, slightly decreased coordination noted when pt's arm extended away from body without UE support. Pt returned to his room using FWW, SBA, a couple slight LOB noted but pt able to self correct. Post tx, pt seated EOB, call light in reach and all needs met. Education OT Patient Education: Correct positioning, Energy conservation, Exercise program, Modified ADL techniques, Progress toward Goal/Update tx plan, Purpose of tx/functional activities, Rehab process Teaching Recipient: Patient Teaching Methods: Discussion Response to Teaching: Verbalize Understanding OT Short Term Goals Short Term Goals Time Frame: Aug 21, 2020 Eatin Oral hygiene: 4 Toileting hygiene: 4 Shower/bathe self: 4 Upper body dressin Lower body dressin Putting on/taking off footwear: 4 OT Penitentiary Goals Chemical Mixer Goals Time Frame: Sep 04, 2020 Eating (QC): 6 Oral Hygiene (QC): 6 Toileting Hygiene (QC): 6 Shower/Bathe Self (QC): 6 Upper Body Dressing (QC): 6 Lower Body Dressing (QC): 6 On/Off Footwear (QC): 6 Additional Goals: 1-Demonstrate ADL Tasks, 2-Verbalize Understanding, 3- ImproveStrength/Danay 1=Demonstrate adherence to instructed precautions during ADL tasks. 2=Patient will verbalize/demonstrate understanding of assistive devices/modifications for ADL. 3=Patient will improve strength/tolerance for activity to enable patient to perform ADL's. OT Education/Plan Problem List/Assessment Assessment: Decreased Activ Tolerance, Decreased UE Strength, Impaired Funct Balance, Impaired I ADL's, Impaired Self-Care Skills Pt would benefit from skilled OT to increase his independence in basic self care to allow him to safely return home to live with family. Discharge Recommendations Plan/Recommendations: Continue POC Treatment Plan/Plan of Care Patient would benefit from OT for education, treatment and training to promote independence in ADL's, mobility, safety and/or upper extremity function for ADL's. Plan of Care: ADL Retraining, Caregiver Training, Functional Mobility, Group Exercise/Act as Ind (education, exercise, coordination, funct mobility, socialization), UE Funct Exercise/Act, UE Neuromus Re-Ed/Coord Treatment Duration: Sep 04, 2020 Frequency: At least 5 of 7 days/Wk (IRF) Estimated Hrs Per Day: 1.5 hours per day Rehab Potential: Good Time/GCodes Start Time: 09:00 Stop Time: 10:00 Total Time Billed (hr/min): 60 Billed Treatment Time 1, ADL 2 (30'), FA 2 (30') SONYA SCHMIDT OT Aug 25, 2020 09:20
--- NOTE | 2020-08-25 12:06 | Physical Therapy Daily Note ---
PT Daily Note-Current Subjective Pt laying Supine in bed upon arrival. Pt agrees to PT. Pain Location: No Pain Reported Mental Status Patient Orientation: Person, Place, Time, Situation Transfers SCALE: Activities may be completed with or without assistive devices. 5-Mjzjiiebbe-apfghom completes the activity by him/herself with no assistance from a helper. 5-Set-up or Clean-up Assistance-helper sets up or cleans up; patient completes activity. [place] assists only prior to or following the activity. 4-Supervision or Touching Assistance-helper provides verbal cues and/or touching/steadying and/or contact guard assistance as patient completes activity. Assistance may be provided throughout the activity or intermittently. 3-Partial/Moderate Assistance-helper does LESS THAN HALF the effort. [place] lifts, holds or supports trunk or limbs, but provides less than half the effort. 2-Substantial/Maximal Assistance-helper does MORE THAN HALF the effort. [place] lifts or holds trunk or limbs and provides more than half the effort. 8-Krcwjlhrk-trlwzc does ALL the effort. Patient does none of the effort to complete the activity. Or, the assistance of 2 or more helpers is required for the patient to complete the activity. If activity was not attempted, code reason: 7-Patient Refused. 9-Not Applicable-not attempted and the patient did not perform the activity be fore the current illness, exacerbation or injury. 10-Not Attempted due to Environmental Limitations-(lack of equipment, weather restraints, etc.). 88-Not Attempted due to Medical Conditions or Safety Concerns. Sit to Stand (QC): 5 Toilet Transfer (QC): 5 Weight Bearing Full Weight Bearing Full Weight Bearing Gait Training Does the Patient Walk?: Yes Distance: 450' Walk 10 feet (QC): 5 Walk 50 ft with 2 Turns(QC): 5 Walk 150 ft (QC): 5 Gait Persons Needed: 1 Gait Assistive Device: FWW Stair Training Stair Training: Handrails/: 2 handrails #of Steps: 12 1 Step (curb) (QC): 5 4 Steps (QC): 5 12 Steps (QC): 5 Stairs: Pattern: Reciprocal Exercises Seated Therapy Exercises: Ankle pumps, Long arc quads, Hip flexion, Glut set Seated Reps: 15 NuStep Minutes: 15 NuStep Workload: 5 Treatments TF to standing and uses BR. Pt amb. in hallway. Pt completes 3 sets of 4 steps. Pt uses NuStep for 15m at WL 5. Pt returns to room and completes Seated EX. Assessment Current Status: Good Progress Pt has improved with balance and coordination. Pt needs occasional VC for slow down for improved control while completing tasks. PT Short Term Goals Short Term Goals Time Frame: Aug 25, 2020 Roll Left & Right: 6 Sit to lyin Lying to sitting on side of be: 6 Sit to stand: 4 Chair/gsr-tu-awyfp transfer: 4 Walk 150 feet: 4 PT Stock Patcher Goals Stock Patcher Goals PT Chcf Goals Time Frame: Sep 08, 2020 Roll Left & Right (QC): 6 Sit to Lying (QC): 6 Lying-Sitting on Side/Bed(QC): 6 Sit to Stand (QC): 6 Chair/Nwl-eu-Firad Xfer(QC): 6 Toilet Transfer (QC): 6 Car Transfer (QC): 6 Does the Patient Walk: Yes Walk 10 feet (QC): 6 Walk 50ft with 2 Turns (QC): 6 Walk 150 ft (QC): 6 Walking 10ft on Uneven Surface: 6 1 Step (curb) (QC): 6 4 Steps (QC): 6 12 Steps (QC): 4 Picking up an Object (QC): 4 Does the Pt use WC or Scooter?: No Wheel 50 feet with 2 turns (QC: 9 Wheel 150 feet: 9 PT Plan Treatment/Plan Treatment Plan: Continue Plan of Care Treatment Plan: Bed Mobility, Education, Functional Activity Danay, Functional Strength, Group Therapy, Gait, Safety, Therapeutic Exercise, Transfers Treatment Duration: Sep 08, 2020 Frequency: At least 5 of 7 days/Wk (IRF) Estimated Hrs Per Day: 1.5 hours per day Patient and/or Family Agrees t: Yes Safety Risks/Education Patient Education: Gait Training, Steps, Correct Positioning, Safety Issues Teaching Recipient: Patient Teaching Methods: Demonstration, Discussion Response to Teaching: Verbalize Understanding, Return Demonstration Time/GCodes Time In: 1000 Time Out: 1100 Total Billed Treatment Time: 60 Total Billed Treatment 1, GT (15m), FA (20m) & EX x2 (25m) ROSETTE ANGELO PEOPLESOFT FINANCIAL DEVELOPER Aug 25, 2020 12:06
--- NOTE | 2020-08-25 13:09 | Occupational Ther Daily Note ---
OT Current Status-Daily Note Subjective Pt states he is doing well now that he has his shoes on. Mental Status/Objective Patient Orientation: Normal For Age ADL-Treatment Therapy Code Descriptions/Definitions Functional [place] Measure: 0=Not Assessed/NA 4=Minimal Assistance 1=Total Assistance 5=Supervision or Setup 2=Maximal Assistance 6=Modified [place] 3=Moderate Assistance 7=Complete IndependenceSCALE: Activities may be completed with or without assistive devices. 2-Xnxsinbxnh-wpqcosx completes the activity by him/herself with no assistance from a helper. 5-Set-up or Clean-up Assistance-helper sets up or cleans up; patient completes activity. [place] assists only prior to or following the activity. 4-Supervision or Touching Assistance-helper provides verbal cues and/or touching/steadying and/or contact guard assistance as patient completes activity. Assistance may be provided throughout the activity or intermittently. 3-Partial/Moderate Assistance-helper does LESS THAN HALF the effort. [place] lifts, holds or supports trunk or limbs, but provides less than half the effort. 2-Substantial/Maximal Assistance-helper does MORE THAN HALF the effort. [place] lifts or holds trunk or limbs and provides more than half the effort. 5-Wqzndrcmn-rcboyh does ALL the effort. Patient does none of the effort to complete the activity. Or, the assistance of 2 or more helpers is required for the patient to complete the activity. If activity was not attempted, code reason: 7-Patient Refused. 9-Not Applicable-not attempted and the patient did not perform the activity before the current illness, exacerbation or injury. 10-Not Attempted due to Environmental Limitations-(lack of equipment, weather restraints, etc.). 88-Not Attempted due to Medical Conditions or Safety Concerns. On/Off Footwear: 6 (IND donning slip on shoes.) Other Treatment Pt laying in bed, transferred supine to sit EOB. Pt donned slip on shoes IND. Pt used FWW to perform functional mobility to therapy gym, SBA. OT tx with focus on increasing BUE strength and activity tolerance. Pt completed arm bike, x15 mins, min resistance without rest breaks. Pt used FWW to return to his room, on his way to his room pt stopped, let go of walker with L hand and turned towards his R to say hello to someone. Pt lost balance, requiring mod A to correct. Pt proceeded to return to his room, transferring to bed. Pt states he is unsure why he lost his balance, OT educated pt on safety of keeping hands on the walker and not rotating towards the side. Post tx, pt laying in bed, call light in reach and all needs met. Education OT Patient Education: Correct positioning, Energy conservation, Exercise program, Modified ADL techniques, Progress toward Goal/Update tx plan, Purpose of tx/functional activities Teaching Recipient: Patient Teaching Methods: Discussion Response to Teaching: Verbalize Understanding OT Short Term Goals Short Term Goals Time Frame: Aug 21, 2020 Eatin Oral hygiene: 4 Toileting hygiene: 4 Shower/bathe self: 4 Upper body dressin Lower body dressin Putting on/taking off footwear: 4 OT Drop Wire Operator Goals Snf Goals Time Frame: Sep 04, 2020 Eating (QC): 6 Oral Hygiene (QC): 6 Toileting Hygiene (QC): 6 Shower/Bathe Self (QC): 6 Upper Body Dressing (QC): 6 Lower Body Dressing (QC): 6 On/Off Footwear (QC): 6 Additional Goals: 1-Demonstrate ADL Tasks, 2-Verbalize Understanding, 3- ImproveStrength/Danay 1=Demonstrate adherence to instructed precautions during ADL tasks. 2=Patient will verbalize/demonstrate understanding of assistive devices/modifications for ADL. 3=Patient will improve strength/tolerance for activity to enable patient to perform ADL's. OT Education/Plan Problem List/Assessment Assessment: Decreased Activ Tolerance, Decreased UE Strength, Impaired Funct Balance, Impaired I ADL's, Impaired Self-Care Skills Pt would benefit from skilled OT to increase his independence in basic self care to allow him to safely return home to live with family. Discharge Recommendations Plan/Recommendations: Continue POC Treatment Plan/Plan of Care Patient would benefit from OT for education, treatment and training to promote independence in ADL's, mobility, safety and/or upper extremity function for ADL's. Plan of Care: ADL Retraining, Caregiver Training, Functional Mobility, Group Exercise/Act as Ind (education, exercise, coordination, funct mobility, socialization), UE Funct Exercise/Act, UE Neuromus Re-Ed/Coord Treatment Duration: Sep 04, 2020 Frequency: At least 5 of 7 days/Wk (IRF) Estimated Hrs Per Day: 1.5 hours per day Rehab Potential: Good Time/GCodes Start Time: 13:00 Stop Time: 13:30 Total Time Billed (hr/min): 30 Billed Treatment Time 1, EX (15'), FA (15') SONYA SCHMIDT OT Aug 25, 2020 13:09
--- NOTE | 2020-08-25 13:59 | Physical Therapy Daily Note ---
PT Daily Note-Current Subjective Pt laying Supine in bed upon arrival. Pt agrees to PT. Pain Location: No Pain Reported Mental Status Patient Orientation: Person, Place, Situation Transfers SCALE: Activities may be completed with or without assistive devices. 4-Oypkotwpod-lebixxx completes the activity by him/herself with no assistance from a helper. 5-Set-up or Clean-up Assistance-helper sets up or cleans up; patient completes activity. [place] assists only prior to or following the activity. 4-Supervision or Touching Assistance-helper provides verbal cues and/or touching/steadying and/or contact guard assistance as patient completes activity. Assistance may be provided throughout the activity or intermittently. 3-Partial/Moderate Assistance-helper does LESS THAN HALF the effort. [place] lifts, holds or supports trunk or limbs, but provides less than half the effort. 2-Substantial/Maximal Assistance-helper does MORE THAN HALF the effort. [place] lifts or holds trunk or limbs and provides more than half the effort. 4-Hwmavgkrz-etmalb does ALL the effort. Patient does none of the effort to complete the activity. Or, the assistance of 2 or more helpers is required for the patient to complete the activity. If activity was not attempted, code reason: 7-Patient Refused. 9-Not Applicable-not attempted and the patient did not perform the activity before the current illness, exacerbation or injury. 10-Not Attempted due to Environmental Limitations-(lack of equipment, weather restraints, etc.). 88-Not Attempted due to Medical Conditions or Safety Concerns. Weight Bearing Full Weight Bearing Full Weight Bearing Exercises Supine Ex: Ankle pumps, Quad Set, Glut sets, Heel Slides, Short Arc Quads, Straight leg raise, Hip abd/add Supine Reps: 15 Treatments Pt completes Supine EX with RB as needed. Pt & WIRELESS COMMUNICATIONS ENGINEER discuss need for extra precaution and time when turning since that is when pt seems to have the most difficulty with balance. Pt is encouraged for safety. Pt resting at end of tx with all needs met, call light in hand. Assessment Current Status: Good Progress Pt remembers many EX for written HEP without prompting. Pt demonstrates understanding of limitations with balance and what is needed for safety after discussion. PT Short Term Goals Short Term Goals Time Frame: Aug 25, 2020 Roll Left & Right: 6 Sit to lyin Lying to sitting on side of be: 6 Sit to stand: 4 Chair/xiz-qx-zomaj transfer: 4 Walk 150 feet: 4 PT Half-Way Goals Fitter Helper Goals PT Half-Way Goals Time Frame: Sep 08, 2020 Roll Left & Right (QC): 6 Sit to Lying (QC): 6 Lying-Sitting on Side/Bed(QC): 6 Sit to Stand (QC): 6 Chair/Cjc-jh-Bbrdt Xfer(QC): 6 Toilet Transfer (QC): 6 Car Transfer (QC): 6 Does the Patient Walk: Yes Walk 10 feet (QC): 6 Walk 50ft with 2 Turns (QC): 6 Walk 150 ft (QC): 6 Walking 10ft on Uneven Surface: 6 1 Step (curb) (QC): 6 4 Steps (QC): 6 12 Steps (QC): 4 Picking up an Object (QC): 4 Does the Pt use WC or Scooter?: No Wheel 50 feet with 2 turns (QC: 9 Wheel 150 feet: 9 PT Plan Problem List Problem List: Safety, Balance Balance declines with fatigue as well as quick turns. Treatment/Plan Treatment Plan: Continue Plan of Care Treatment Plan: Bed Mobility, Education, Functional Activity Danay, Functional Strength, Group Therapy, Gait, Safety, Therapeutic Exercise, Transfers Treatment Duration: Sep 08, 2020 Frequency: At least 5 of 7 days/Wk (IRF) Estimated Hrs Per Day: 1.5 hours per day Patient and/or Family Agrees t: Yes Safety Risks/Education Patient Education: Gait Training, Correct Positioning, Safety Issues Teaching Recipient: Patient Teaching Methods: Discussion Response to Teaching: Verbalize Understanding Time/GCodes Time In: 1330 Time Out: 1400 Total Billed Treatment Time: 30 Total Billed Treatment 1, FA (10m) & EX (20m) ROSETTE ANGELO WIRELESS COMMUNICATIONS ENGINEER Aug 25, 2020 13:59
[2020-08-25] MEDS: KCL 8 MEQ (MICRO K) TABLET PO SCH (16:53)
[2020-08-25] MEDS: ASCORBIC ACID (VIT C) 500 MG TABLET PO SCH (16:54)
[2020-08-25 20:00] VITALS: BP 147/69
[2020-08-25] MEDS: VITAMIN D3 25 MCG (1,000 UNITS) TABLET PO SCH (20:46)
[2020-08-26] MEDS: MULTIVIT W/MINERALS TAB (THERAGRAN M) PO SCH (05:57)
[2020-08-26] MEDS: LEVOTHYROXINE 100 MCG (LEVOTHROID) TAB PO SCH (05:57)
[2020-08-26] MEDS: CYANOCOBALAMIN 1,000 MCG (VITAMIN B-12) TABLET PO SCH (05:57)
[2020-08-26] MEDS: ACETAMINOPHEN 325 MG TABLET PO PRN (05:57)
--- NOTE | 2020-08-26 06:21 | PM&R Progress Note ---
Subjective HPI/CC On Admission Date Seen by Provider: Aug 26, 2020 Time Seen by Provider: 11:00 Subjective/Events-last exam 08/26/20: Pt doing really well Discharge is planned soon Tylenol given at 6:00 AM 08/25/2020: Pt doing pretty well Working with therapy Left knee buckled a bit but he is sound okay No issues 08/24/2020: Pt doing really well K-pad discontinued since it doesnt help Right neck and back pain helped by Tyenol Potassium of 3.5 on Potassium supplement of 8 mEQ Rash on back much improved Kenalog 08/23/2020: Patient having no major issues Not dizzy Right foot weakness is improved No falls Pain is improved 08/22/2020: Patient doing really well Wants to go home soon Seems to be improving No pain is reported Bowels moved yesterday 08/21/2020: Patient doing really well Settling in well Participating with therapy Still asking for his oral tobacco Bowels are moving No concerns 08/20/20: Patient doing pretty well Right neck pain reported and Voltaren did not really help so will try K pad Rash is improved from triamcinolone cream No pain is reported 08/19/20: Patient doing pretty well Elevated liver enzymes from alcoholic hepatitis Bowels moved yesterday Colace and senna will be given Labs reviewed everything looked good except for elevated liver enzymes Settling in well Review of Systems General: Fatigue Neurological: Weakness, Incoordination Objective Exam Vital Signs Vital Signs Date Time Temp Pulse Resp B/P (MAP) Pulse Ox O2 Delivery O2 Flow Rate FiO2 08/26/20 21:00 Room Air 08/26/20 20:00 36.4 65 20 135/65 (88) 96 Capillary Refill : General Appearance: No Apparent Distress, WD/WN, Chronically ill, Obese HEENT: PERRL/EOMI, Normal ENT Inspection, Pharynx Normal Neck: Full Range of Motion, Normal Inspection, Non Tender, Supple, Carotid Bruit Respiratory: Chest Non Tender, Lungs Clear, Normal Breath Sounds, No Accessory Muscle Use, No Respiratory Distress Cardiovascular: Regular Rate, Rhythm, No Edema, No Gallop, No JVD, No Murmur, Normal Peripheral Pulses Gastrointestinal: Normal Bowel Sounds, No Organomegaly, No Pulsatile Mass, Non Tender, Soft Back: Normal Inspection, No CVA Tenderness, No Vertebral Tenderness Extremity: Normal Capillary Refill, Normal Inspection, Normal Range of Motion, Non Tender, No Calf Tenderness, No Pedal Edema Neurologic/Psychiatric: Alert, Oriented x3, Normal Mood/Affect, precinct police lieutenant II-XII Norm as Tested, Abnormal Gait, Motor Weakness (Generalized weakness) Skin: Normal Color, Warm/Dry Lymphatic: No Adenopathy Results/Procedures Lab Patient resulted labs reviewed. FIM Transfers Therapy Code Descriptions/Definitions Functional [place] Measure: 0=Not Assessed/NA 4=Minimal Assistance 1=Total Assistance 5=Supervision or Setup 2=Maximal Assistance 6=Modified [place] 3=Moderate Assistance 7=Complete IndependenceSCALE: Activities may be completed with or without assistive devices. 0-Iupikvipbe-iefbmop completes the activity by him/herself with no assistance from a helper. 5-Set-up or Clean-up Assistance-helper sets up or cleans up; patient completes activity. [place] assists only prior to or following the activity. 4-Supervision or Touching Assistance-helper provides verbal cues and/or touching/steadying and/or contact guard assistance as patient completes activity. Assistance may be provided throughout the activity or intermittently. 3-Partial/Moderate Assistance-helper does LESS THAN HALF the effort. [place] lifts, holds or supports trunk or limbs, but provides less than half the effort. 2-Substantial/Maximal Assistance-helper does MORE THAN HALF the effort. [place] lifts or holds trunk or limbs and provides more than half the effort. 7-Rszjcvrkr-wukwsb does ALL the effort. Patient does none of the effort to complete the activity. Or, the assistance of 2 or more helpers is required for the patient to complete the activity. If activity was not attempted, code reason: 7-Patient Refused. 9-Not Applicable-not attempted and the patient did not perform the activity before the current illness, exacerbation or injury. 10-Not Attempted due to Environmental Limitations-(lack of equipment, weather restraints, etc.). 88-Not Attempted due to Medical Conditions or Safety Concerns. Roll Left to Right (QC): 6 Sit to Lying (QC): 6 Sit to Stand (QC): 5 Chair/Aco-ku-Ghddl Xfer(QC): 4 (SBA) Car Transfer (QC): 10 Gait Training Does the Patient Walk?: Yes Distance: 450' Walk 10 feet (QC): 5 Walk 50 ft with 2 Turns(QC): 5 Walk 150 ft (QC): 5 Walking 10ft/uneven surface-QC: 10 Gait Persons Needed: 1 Gait Assistive Device: FWW Wheelchair Training Does the Pt Use a Wheelchair?: No Wheel 50 ft with 2 turns (QC): 9 Wheel 150 ft (QC): 9 Stair Training Stair Training: Handrails/: 2 handrails #of Steps: 12 1 Step (curb) (QC): 5 4 Steps (QC): 5 12 Steps (QC): 5 Stairs: Pattern: Reciprocal Balance Picking up an Object (QC): 4 ADL-Treatment Eating (QC): 6 (IND per pt report) Oral Hygiene (QC): 7 (Pt declined) Shower/Bathe Self (QC): 6 (Pt IND with task seated on SC. Pt able to adjust water temperature as needed and washed/dried all parts.) Upper Body Dressing (QC): 6 (Pt gathered clothes from closet, doff/don independently.) Lower Body Dressing (QC): 6 (Pt gathered clothing from closet, don/doff pants IND) On/Off Footwear (QC): 6 (IND donning slip on shoes.) Toileting Hygiene (QC): 7 Toilet Transfer (QC): 7 Assessment/Plan Assessment and Plan Assess & Plan/Chief Complaint Assessment: Hemorrhagic stroke Generalized weakness Alcoholism Hypothyroidism Oral tobacco use Advanced age Fall risk Plan: Inpatient rehab protocol Monitor labs Home meds Fall risk 08/19/2020: Continue protocol Monitor elevated liver enzymes from alcoholic hepatitis Await GGT added to labs 08/20/2020: Continue triamcinolone for nonspecific dermatitis on the back Continue inpatient rehab protocol Fall risk GGT significantly elevated at 485 consistent with alcoholism 08/21/2020: Continue therapy Cessation of oral tobacco counseled Monitor blood pressure closely Monitor for alcoholism effects 08/22/2020: Patient much improved Participating in therapy 08/23/2020: Monitor closely Monitor for falls Very impulsive 08/24/2020: Supportive care Tylenol for pain Fall risk 08/25/2020: Supportive care Intense therapy Monitor closely 08/26/20: Doing well DC 08/28 (1) CVA (cerebral vascular accident) (2) Hypothyroidism (3) Intracerebellar and posterior fossa hemorrhage Status: Acute (4) Chronic alcohol use Status: Acute (5) Generalized weakness Status: Acute SALINAS,CARMEN DO Aug 26, 2020 06:21
[2020-08-26 07:42] VITALS: BP 142/68
[2020-08-26] MEDS: SENNA W/DOCUSATE (SENOKOT S) TABLET PO SCH ×2 (08:41→21:11)
[2020-08-26] MEDS: FOLIC ACID 1 MG TAB PO SCH (08:41)
[2020-08-26] MEDS: GABAPENTIN 600 MG (NEURONTIN) TAB PO SCH ×2 (08:42→21:11)
[2020-08-26] MEDS: DOCUSATE SODIUM 100 MG (COLACE) CAP PO SCH ×2 (08:42→21:11)
[2020-08-26] MEDS: amLODIPine 5 MG (NORVASC) TAB PO SCH (08:42)
[2020-08-26] MEDS: polyethylene glycoL POWDER 17 GM (MIRALAX) PACK PO SCH ×2 (08:42→19:48)
--- NOTE | 2020-08-26 09:03 | Physical Therapy Daily Note ---
PT Daily Note-Current Subjective Pt laying Supine in bed upon arrival. Pt agrees to PT. Pain Location: No Pain Reported Mental Status Patient Orientation: Person, Place, Time, Situation Transfers SCALE: Activities may be completed with or without assistive devices. 8-Kkfqcekmqr-gmhcfif completes the activity by him/herself with no assistance from a helper. 5-Set-up or Clean-up Assistance-helper sets up or cleans up; patient completes activity. [place] assists only prior to or following the activity. 4-Supervision or Touching Assistance-helper provides verbal cues and/or touching/steadying and/or contact guard assistance as patient completes activity. Assistance may be provided throughout the activity or intermittently. 3-Partial/Moderate Assistance-helper does LESS THAN HALF the effort. [place] lifts, holds or supports trunk or limbs, but provides less than half the effort. 2-Substantial/Maximal Assistance-helper does MORE THAN HALF the effort. [place] lifts or holds trunk or limbs and provides more than half the effort. 1-Imqyurqbw-mahyvn does ALL the effort. Patient does none of the effort to complete the activity. Or, the assistance of 2 or more helpers is required for the patient to complete the activity. If activity was not attempted, code reason: 7-Patient Refused. 9-Not Applicable-not attempted and the patient did not perform the activity be fore the current illness, exacerbation or injury. 10-Not Attempted due to Environmental Limitations-(lack of equipment, weather restraints, etc.). 88-Not Attempted due to Medical Conditions or Safety Concerns. Roll Left & Right (QC): 6 Sit to Lying (QC): 6 Lying to Sitting/Side of Bed(Q: 6 Sit to Stand (QC): 6 Chair/Iff-rv-Xwxrs Xfer(QC): 6 Toilet Transfer (QC): 6 Car Transfer (QC): 6 VC for focus on task at hand for dynamic standing balance activities. Weight Bearing Full Weight Bearing Full Weight Bearing Gait Training Does the Patient Walk?: Yes Distance: 300' Walk 10 feet (QC): 6 Walk 50 ft with 2 Turns(QC): 6 Walk 150 ft (QC): 6 Walking 10ft/uneven surface-QC: 6 Gait Persons Needed: 1 Gait Assistive Device: FWW VC given for reminder on safety. Balance decreases with quick turns. Pt aware he has improved body control when slower raheel. Wheelchair Training Does the Pt Use a Wheelchair?: No Stair Training Stair Training: Handrails/: 2 handrails #of Steps: 12 1 Step (curb) (QC): 6 4 Steps (QC): 5 12 Steps (QC): 5 Stairs: Pattern: Reciprocal Balance Picking up an Object (QC): 88 Special Test Comments Did not attempt for safety. Pt should use test director for safety. Exercises NuStep Minutes: 15 NuStep Workload: 6 Treatments Pt completes QC scoring items listed above as well as uses NuStep. Pt returns to room at end of tx to use BR. Pt resting in bed with all needs met, call light in hand. Assessment Current Status: Good Progress Pt needs VC for safety at times (see Gait). PT Short Term Goals Short Term Goals Time Frame: Aug 25, 2020 Roll Left & Right: 6 Sit to lyin Lying to sitting on side of be: 6 Sit to stand: 4 Chair/ffc-dq-ueccb transfer: 4 Walk 150 feet: 4 PT Shelter Goals Shelter Goals PT Shelter Goals Time Frame: Sep 08, 2020 Roll Left & Right (QC): 6 Sit to Lying (QC): 6 Lying-Sitting on Side/Bed(QC): 6 Sit to Stand (QC): 6 Chair/Fep-xk-Enasl Xfer(QC): 6 Toilet Transfer (QC): 6 Car Transfer (QC): 6 Does the Patient Walk: Yes Walk 10 feet (QC): 6 Walk 50ft with 2 Turns (QC): 6 Walk 150 ft (QC): 6 Walking 10ft on Uneven Surface: 6 1 Step (curb) (QC): 6 4 Steps (QC): 6 12 Steps (QC): 4 Picking up an Object (QC): 4 Does the Pt use WC or Scooter?: No Wheel 50 feet with 2 turns (QC: 9 Wheel 150 feet: 9 PT Plan Problem List Problem List: Safety, Balance Treatment/Plan Treatment Plan: Continue Plan of Care Treatment Plan: Bed Mobility, Education, Functional Activity Danay, Functional Strength, Group Therapy, Gait, Safety, Therapeutic Exercise, Transfers Treatment Duration: Sep 08, 2020 Frequency: At least 5 of 7 days/Wk (IRF) Estimated Hrs Per Day: 1.5 hours per day Patient and/or Family Agrees t: Yes Safety Risks/Education Patient Education: Correct Positioning, Safety Issues Teaching Recipient: Patient Teaching Methods: Discussion Response to Teaching: Verbalize Understanding Time/GCodes Time In: 800 Time Out: 900 Total Billed Treatment Time: 60 Total Billed Treatment 1, GT x2 (25m), FA (20m) & EX (15m) ROSETTE ANGELO TRANSMISSION SYSTEM OPERATOR Aug 26, 2020 09:03
--- NOTE | 2020-08-26 09:22 | Occupational Ther Daily Note ---
OT Current Status-Daily Note Subjective Pt laying in bed, agreeable to OT tx. Mental Status/Objective Patient Orientation: Normal For Age ADL-Treatment Therapy Code Descriptions/Definitions Functional [place] Measure: 0=Not Assessed/NA 4=Minimal Assistance 1=Total Assistance 5=Supervision or Setup 2=Maximal Assistance 6=Modified [place] 3=Moderate Assistance 7=Complete IndependenceSCALE: Activities may be completed with or without assistive devices. 4-Kudytamaqn-osdcoqr completes the activity by him/herself with no assistance from a helper. 5-Set-up or Clean-up Assistance-helper sets up or cleans up; patient completes activity. [place] assists only prior to or following the activity. 4-Supervision or Touching Assistance-helper provides verbal cues and/or touching/steadying and/or contact guard assistance as patient completes activity. Assistance may be provided throughout the activity or intermittently. 3-Partial/Moderate Assistance-helper does LESS THAN HALF the effort. [place] lifts, holds or supports trunk or limbs, but provides less than half the effort. 2-Substantial/Maximal Assistance-helper does MORE THAN HALF the effort. [place] lifts or holds trunk or limbs and provides more than half the effort. 1-Bnsxbhygy-njetqn does ALL the effort. Patient does none of the effort to complete the activity. Or, the assistance of 2 or more helpers is required for the patient to complete the activity. If activity was not attempted, code reason: 7-Patient Refused. 9-Not Applicable-not attempted and the patient did not perform the activity before the current illness, exacerbation or injury. 10-Not Attempted due to Environmental Limitations-(lack of equipment, weather restraints, etc.). 88-Not Attempted due to Medical Conditions or Safety Concerns. Oral Hygiene (QC): 7 (Pt declined oral care on this date.) Toileting Hygiene (QC): 6 (Per PT, pt able to manage clothing and hygiene.) Toilet Transfer (QC): 6 (IND per PT.) Other Treatment Pt used FWW to perform functional mobility to therapy gym. OT tx with focus on increasing BUE strength and activity tolerance, increasing fine motor coordination/strength. Pt completed arm bike x15 mins, 30W resistance, no rest break. Pt removed beads from heavy resistance theraputty, no cues required to locate all beads. Pt played a game of streamit, placing and manipulating cards from a deck. Pt had decreased accuracy with reaching extended arm but improved with repetitions. Pt used FWW to return to his room. Post tx, pt laying in bed, call light in reach and all needs met. Education OT Patient Education: Correct positioning, Energy conservation, Exercise program, Modified ADL techniques, Progress toward Goal/Update tx plan, Purpose of tx/functional activities, Rehab process Teaching Recipient: Patient Teaching Methods: Discussion Response to Teaching: Verbalize Understanding OT Short Term Goals Short Term Goals Time Frame: Aug 21, 2020 Eatin Oral hygiene: 4 Toileting hygiene: 4 Shower/bathe self: 4 Upper body dressin Lower body dressin Putting on/taking off footwear: 4 OT Mathematics Professor Goals Detention Goals Time Frame: Sep 04, 2020 Eating (QC): 6 Oral Hygiene (QC): 6 Toileting Hygiene (QC): 6 Shower/Bathe Self (QC): 6 Upper Body Dressing (QC): 6 Lower Body Dressing (QC): 6 On/Off Footwear (QC): 6 Additional Goals: 1-Demonstrate ADL Tasks, 2-Verbalize Understanding, 3- ImproveStrength/Danay 1=Demonstrate adherence to instructed precautions during ADL tasks. 2=Patient will verbalize/demonstrate understanding of assistive devices/modifications for ADL. 3=Patient will improve strength/tolerance for activity to enable patient to perform ADL's. OT Education/Plan Problem List/Assessment Assessment: Decreased Activ Tolerance, Decreased UE Strength, Impaired I ADL's, Impaired Self-Care Skills, Restricted Funct UE ROM Pt would benefit from skilled OT to increase his independence in basic self care to allow him to safely return home to live with family. Discharge Recommendations Plan/Recommendations: Continue POC Treatment Plan/Plan of Care Patient would benefit from OT for education, treatment and training to promote independence in ADL's, mobility, safety and/or upper extremity function for ADL's. Plan of Care: ADL Retraining, Caregiver Training, Functional Mobility, Group Exercise/Act as Ind (education, exercise, coordination, funct mobility, socialization), UE Funct Exercise/Act, UE Neuromus Re-Ed/Coord Treatment Duration: Sep 04, 2020 Frequency: At least 5 of 7 days/Wk (IRF) Estimated Hrs Per Day: 1.5 hours per day Rehab Potential: Good Time/GCodes Start Time: 09:00 Stop Time: 10:00 Total Time Billed (hr/min): 60 Billed Treatment Time 1, EX (15'), FA 3 (45') SONYA SCHMIDT OT Aug 26, 2020 09:22
--- NOTE | 2020-08-26 14:54 | Therapy Group Daily Note ---
Therapy Daily Group Note Patient Education Topic Other List Below (Memory & Memory Strategies) Exercises LE Seated Exercise, UE Exercise Session Ratio (pt:therapist): 4:1 Goal of Session: Memory Strategies, UE/LE Strengthing Goal Met for this Session: Yes Pt Benefit of Group: Contributions to Others, F/U Use of Strategies @Home, Increased Functional Safety, Increased Functional Strength, Improved Cognition, Recognition of Peers, Socialization Other/Notes Pt ambulates to PT/OT Group. Group consists of Introduction (Name, Where from & What makes you the happiest), Socialization, UE & LE Exercises, Memory & Memory Strategy topic and activity. Pt is able to complete Exercises as well as cite individual examples of strategies. Pt also actively listens to other patients during Group. Pt returns to room at end of Group with all needs met, call light in hand. Start Time: 13:00 Stop Time: 14:15 Total Billed Treatment Time: 75 Total Billed Treatment 1, GRP ROSETTE ANGELO COTTON FACTOR Aug 26, 2020 14:54
[2020-08-26] MEDS: KCL 8 MEQ (MICRO K) TABLET PO SCH (17:20)
[2020-08-26] MEDS: ASCORBIC ACID (VIT C) 500 MG TABLET PO SCH (17:20)
[2020-08-26 20:00] VITALS: BP 135/65
[2020-08-26] MEDS: VITAMIN D3 25 MCG (1,000 UNITS) TABLET PO SCH (21:11)
--- NOTE | 2020-08-27 05:57 | PM&R Progress Note ---
Subjective HPI/CC On Admission Date Seen by Provider: Aug 27, 2020 Time Seen by Provider: 12:00 Subjective/Events-last exam 08/27/2020: Patient ready for discharge Going home tomorrow No concerns reported 08/26/20: Pt doing really well Discharge is planned soon Tylenol given at 6:00 AM 08/25/2020: Pt doing pretty well Working with therapy Left knee buckled a bit but he is sound okay No issues 08/24/2020: Pt doing really well K-pad discontinued since it doesnt help Right neck and back pain helped by Tyenol Potassium of 3.5 on Potassium supplement of 8 mEQ Rash on back much improved Kenalog 08/23/2020: Patient having no major issues Not dizzy Right foot weakness is improved No falls Pain is improved 08/22/2020: Patient doing really well Wants to go home soon Seems to be improving No pain is reported Bowels moved yesterday 08/21/2020: Patient doing really well Settling in well Participating with therapy Still asking for his oral tobacco Bowels are moving No concerns 08/20/20: Patient doing pretty well Right neck pain reported and Voltaren did not really help so will try K pad Rash is improved from triamcinolone cream No pain is reported 08/19/20: Patient doing pretty well Elevated liver enzymes from alcoholic hepatitis Bowels moved yesterday Colace and senna will be given Labs reviewed everything looked good except for elevated liver enzymes Settling in well Review of Systems General: Fatigue, Malaise Objective Exam Vital Signs Vital Signs Date Time Temp Pulse Resp B/P (MAP) Pulse Ox O2 Delivery O2 Flow Rate FiO2 08/27/20 20:00 Room Air 08/27/20 08:06 36.3 77 22 150/70 (96) 93 Capillary Refill : General Appearance: No Apparent Distress, WD/WN, Chronically ill, Obese HEENT: PERRL/EOMI, Normal ENT Inspection, Pharynx Normal Neck: Full Range of Motion, Normal Inspection, Non Tender, Supple, Carotid Bruit Respiratory: Chest Non Tender, Lungs Clear, Normal Breath Sounds, No Accessory Muscle Use, No Respiratory Distress Cardiovascular: Regular Rate, Rhythm, No Edema, No Gallop, No JVD, No Murmur, Normal Peripheral Pulses Gastrointestinal: Normal Bowel Sounds, No Organomegaly, No Pulsatile Mass, Non Tender, Soft Back: Normal Inspection, No CVA Tenderness, No Vertebral Tenderness Extremity: Normal Capillary Refill, Normal Inspection, Normal Range of Motion, Non Tender, No Calf Tenderness, No Pedal Edema Neurologic/Psychiatric: Alert, Oriented x3, Normal Mood/Affect, traffic signal supervisor maintenance II-XII Norm as Tested, Abnormal Gait, Motor Weakness (Generalized weakness) Skin: Normal Color, Warm/Dry Lymphatic: No Adenopathy Results/Procedures Lab Patient resulted labs reviewed. FIM Transfers Therapy Code Descriptions/Definitions Functional [place] Measure: 0=Not Assessed/NA 4=Minimal Assistance 1=Total Assistance 5=Supervision or Setup 2=Maximal Assistance 6=Modified [place] 3=Moderate Assistance 7=Complete IndependenceSCALE: Activities may be completed with or without assistive devices. 3-Pprntnegkq-zaaarzm completes the activity by him/herself with no assistance from a helper. 5-Set-up or Clean-up Assistance-helper sets up or cleans up; patient completes activity. [place] assists only prior to or following the activity. 4-Supervision or Touching Assistance-helper provides verbal cues and/or touching/steadying and/or contact guard assistance as patient completes activity. Assistance may be provided throughout the activity or intermittently. 3-Partial/Moderate Assistance-helper does LESS THAN HALF the effort. [place] lifts, holds or supports trunk or limbs, but provides less than half the effort. 2-Substantial/Maximal Assistance-helper does MORE THAN HALF the effort. [place] lifts or holds trunk or limbs and provides more than half the effort. 9-Mzpmziufh-muugnz does ALL the effort. Patient does none of the effort to complete the activity. Or, the assistance of 2 or more helpers is required for the patient to complete the activity. If activity was not attempted, code reason: 7-Patient Refused. 9-Not Applicable-not attempted and the patient did not perform the activity before the current illness, exacerbation or injury. 10-Not Attempted due to Environmental Limitations-(lack of equipment, weather restraints, etc.). 88-Not Attempted due to Medical Conditions or Safety Concerns. Roll Left to Right (QC): 6 Sit to Lying (QC): 6 Sit to Stand (QC): 6 Chair/Zhu-lo-Jphes Xfer(QC): 6 Car Transfer (QC): 6 Gait Training Does the Patient Walk?: Yes Distance: 300' Walk 10 feet (QC): 6 Walk 50 ft with 2 Turns(QC): 6 Walk 150 ft (QC): 6 Walking 10ft/uneven surface-QC: 6 Gait Persons Needed: 1 Gait Assistive Device: FWW Wheelchair Training Does the Pt Use a Wheelchair?: No Wheel 50 ft with 2 turns (QC): 9 Wheel 150 ft (QC): 9 Stair Training Stair Training: Handrails/: 2 handrails #of Steps: 12 1 Step (curb) (QC): 6 4 Steps (QC): 5 12 Steps (QC): 5 Stairs: Pattern: Reciprocal Balance Picking up an Object (QC): 88 ADL-Treatment Eating (QC): 6 (IND per pt report) Oral Hygiene (QC): 7 (Pt declined oral care on this date.) Shower/Bathe Self (QC): 6 (Pt IND with task seated on SC. Pt able to adjust water temperature as needed and washed/dried all parts.) Upper Body Dressing (QC): 6 (Pt gathered clothes from closet, doff/don independently.) Lower Body Dressing (QC): 6 (Pt gathered clothing from closet, don/doff pants IND) On/Off Footwear (QC): 6 (IND donning slip on shoes.) Toileting Hygiene (QC): 6 (Per PT, pt able to manage clothing and hygiene.) Toilet Transfer (QC): 6 (IND per PT.) Assessment/Plan Assessment and Plan Assess & Plan/Chief Complaint Assessment: Hemorrhagic stroke Generalized weakness Alcoholism Hypothyroidism Oral tobacco use Advanced age Fall risk Plan: Inpatient rehab protocol Monitor labs Home meds Fall risk 08/19/2020: Continue protocol Monitor elevated liver enzymes from alcoholic hepatitis Await GGT added to labs 08/20/2020: Continue triamcinolone for nonspecific dermatitis on the back Continue inpatient rehab protocol Fall risk GGT significantly elevated at 485 consistent with alcoholism 08/21/2020: Continue therapy Cessation of oral tobacco counseled Monitor blood pressure closely Monitor for alcoholism effects 08/22/2020: Patient much improved Participating in therapy 08/23/2020: Monitor closely Monitor for falls Very impulsive 08/24/2020: Supportive care Tylenol for pain Fall risk 08/25/2020: Supportive care Intense therapy Monitor closely 08/26/20: Doing well DC 08/2808/27/2020: Prepare for discharge tomorrow (1) CVA (cerebral vascular accident) (2) Hypothyroidism (3) Intracerebellar and posterior fossa hemorrhage Status: Acute (4) Chronic alcohol use Status: Acute (5) Generalized weakness Status: Acute CARMEN SALINAS DO Aug 27, 2020 05:57
[2020-08-27] MEDS: LEVOTHYROXINE 100 MCG (LEVOTHROID) TAB PO SCH (06:18)
[2020-08-27] MEDS: MULTIVIT W/MINERALS TAB (THERAGRAN M) PO SCH (06:18)
[2020-08-27] MEDS: CYANOCOBALAMIN 1,000 MCG (VITAMIN B-12) TABLET PO SCH (06:18)
[2020-08-27] MEDS: amLODIPine 5 MG (NORVASC) TAB PO SCH (08:00)
[2020-08-27] MEDS: GABAPENTIN 600 MG (NEURONTIN) TAB PO SCH ×2 (08:00→19:57)
[2020-08-27] MEDS: SENNA W/DOCUSATE (SENOKOT S) TABLET PO SCH ×2 (08:00→19:57)
[2020-08-27] MEDS: DOCUSATE SODIUM 100 MG (COLACE) CAP PO SCH ×2 (08:00→19:58)
[2020-08-27] MEDS: FOLIC ACID 1 MG TAB PO SCH (08:00)
[2020-08-27 08:06] VITALS: BP 150/70
--- NOTE | 2020-08-27 08:51 | Physical Therapy Daily Note ---
PT Daily Note-Current Subjective Pt laying Supine in bed upon arrival. Pt agrees to PT for QC scoring. Pain Location: No Pain Reported Mental Status Patient Orientation: Person, Place, Time, Situation Transfers SCALE: Activities may be completed with or without assistive devices. 3-Esdpuywoiy-xmbaubi completes the activity by him/herself with no assistance from a helper. 5-Set-up or Clean-up Assistance-helper sets up or cleans up; patient completes activity. [place] assists only prior to or following the activity. 4-Supervision or Touching Assistance-helper provides verbal cues and/or touching/steadying and/or contact guard assistance as patient completes activity. Assistance may be provided throughout the activity or intermittently. 3-Partial/Moderate Assistance-helper does LESS THAN HALF the effort. [place] lifts, holds or supports trunk or limbs, but provides less than half the effort. 2-Substantial/Maximal Assistance-helper does MORE THAN HALF the effort. [place] lifts or holds trunk or limbs and provides more than half the effort. 0-Psbsageeh-evecza does ALL the effort. Patient does none of the effort to complete the activity. Or, the assistance of 2 or more helpers is required for the patient to complete the activity. If activity was not attempted, code reason: 7-Patient Refused. 9-Not Applicable-not attempted and the patient did not perform the activity before the current illness, exacerbation or injury. 10-Not Attempted due to Environmental Limitations-(lack of equipment, weather restraints, etc.). 88-Not Attempted due to Medical Conditions or Safety Concerns. Roll Left & Right (QC): 6 Sit to Lying (QC): 6 Lying to Sitting/Side of Bed(Q: 6 Sit to Stand (QC): 6 Chair/Gjl-vv-Eebxp Xfer(QC): 6 Toilet Transfer (QC): 6 Car Transfer (QC): 6 Pt reports he will sleep in recliner at home and not a bed. 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 Treatments Pt completes QC scoring items listed above. Pt returns to room to rest in bed at end of tx. All needs met, call light in hand. Assessment Current Status: Good Progress Pt has made improvements with balance and coordination. PT Short Term Goals Short Term Goals Time Frame: Aug 25, 2020 Roll Left & Right: 6 Sit to lyin Lying to sitting on side of be: 6 Sit to stand: 4 Chair/coe-wg-jagqe transfer: 4 Walk 150 feet: 4 PT Career Education Teacher Goals Care Home Goals PT Career Education Teacher Goals Time Frame: Sep 08, 2020 Roll Left & Right (QC): 6 Sit to Lying (QC): 6 Lying-Sitting on Side/Bed(QC): 6 Sit to Stand (QC): 6 Chair/Edg-er-Lqscm Xfer(QC): 6 Toilet Transfer (QC): 6 Car Transfer (QC): 6 Does the Patient Walk: Yes Walk 10 feet (QC): 6 Walk 50ft with 2 Turns (QC): 6 Walk 150 ft (QC): 6 Walking 10ft on Uneven Surface: 6 1 Step (curb) (QC): 6 4 Steps (QC): 6 12 Steps (QC): 4 Picking up an Object (QC): 4 Does the Pt use WC or Scooter?: No Wheel 50 feet with 2 turns (QC: 9 Wheel 150 feet: 9 PT Plan Treatment/Plan Treatment Plan: Continue Plan of Care Treatment Plan: Bed Mobility, Education, Functional Activity Danay, Functional Strength, Group Therapy, Gait, Safety, Therapeutic Exercise, Transfers Treatment Duration: Sep 08, 2020 Frequency: At least 5 of 7 days/Wk (IRF) Estimated Hrs Per Day: 1.5 hours per day Patient and/or Family Agrees t: Yes Safety Risks/Education Patient Education: Gait Training, Safety Issues Teaching Recipient: Patient Teaching Methods: Discussion Response to Teaching: Verbalize Understanding Time/GCodes Time In: 800 Time Out: 845 Total Billed Treatment Time: 45 Total Billed Treatment 1, FA x3 (45m) ROSETTE ANGELO RIPSAW OPERATOR Aug 27, 2020 08:51
[2020-08-27] MEDS: polyethylene glycoL POWDER 17 GM (MIRALAX) PACK PO SCH ×2 (09:17→19:58)
--- NOTE | 2020-08-27 09:39 | Occupational Ther Daily Note ---
OT Current Status-Daily Note Subjective Pt laying in bed, agreeable to OT tx. Mental Status/Objective Patient Orientation: Normal For Age ADL-Treatment Therapy Code Descriptions/Definitions Functional [place] Measure: 0=Not Assessed/NA 4=Minimal Assistance 1=Total Assistance 5=Supervision or Setup 2=Maximal Assistance 6=Modified [place] 3=Moderate Assistance 7=Complete IndependenceSCALE: Activities may be completed with or without assistive devices. 0-Cgftrxgolg-uazzdbb completes the activity by him/herself with no assistance from a helper. 5-Set-up or Clean-up Assistance-helper sets up or cleans up; patient completes activity. [place] assists only prior to or following the activity. 4-Supervision or Touching Assistance-helper provides verbal cues and/or touching/steadying and/or contact guard assistance as patient completes activity. Assistance may be provided throughout the activity or intermittently. 3-Partial/Moderate Assistance-helper does LESS THAN HALF the effort. [place] lifts, holds or supports trunk or limbs, but provides less than half the effort. 2-Substantial/Maximal Assistance-helper does MORE THAN HALF the effort. [place] lifts or holds trunk or limbs and provides more than half the effort. 2-Vpsumwizb-edpirv does ALL the effort. Patient does none of the effort to complete the activity. Or, the assistance of 2 or more helpers is required for the patient to complete the activity. If activity was not attempted, code reason: 7-Patient Refused. 9-Not Applicable-not attempted and the patient did not perform the activity before the current illness, exacerbation or injury. 10-Not Attempted due to Environmental Limitations-(lack of equipment, weather restraints, etc.). 88-Not Attempted due to Medical Conditions or Safety Concerns. Eating (QC): 6 (Per pt report) Oral Hygiene (QC): 6 (Based on clincial judgement, pt IND with task) Shower/Bathe Self (QC): 6 (IND, pt able to set water temperature, wash/dry all parts.) Upper Body Dressing (QC): 6 (IND, pt gathered clothing, donned/doffed shirt IND) Lower Body Dressing (QC): 6 (Pt gathered clothes, doffed/donned pants IND) On/Off Footwear: 6 (IND wtih gripper socks and slip on shoes.) Toileting Hygiene (QC): 6 (IND, pt able to complete hygiene and clothing management.) Toilet Transfer (QC): 6 (IND on/off toilet.) Other Treatment Pt laying in bed, used FWW to gather clothing and transfer into bathroom. Pt doffed clothes, completed shower, dried off, then donned clothes IND. Pt used FWW to perform functional mobility to therapy gym. OT tx with focus on increasing BUE Strength and activity tolerance. Pt completed arm bike, 40 W resistance, x20 mins. Pt returned to his room, transferring to bed. Post tx, pt laying in bed, call light in reach and all need met. Education OT Patient Education: Correct positioning, Modified ADL techniques, Progress toward Goal/Update tx plan, Purpose of tx/functional activities, Rehab process Teaching Recipient: Patient Teaching Methods: Discussion Response to Teaching: Verbalize Understanding OT Short Term Goals Short Term Goals Time Frame: Aug 21, 2020 Eatin Oral hygiene: 4 Toileting hygiene: 4 Shower/bathe self: 4 Upper body dressin Lower body dressin Putting on/taking off footwear: 4 OT Automotive Glass Mechanic Goals Automotive Glass Mechanic Goals Time Frame: Sep 04, 2020 Eating (QC): 6 (met) Oral Hygiene (QC): 6 (met) Toileting Hygiene (QC): 6 (met) Shower/Bathe Self (QC): 6 (met) Upper Body Dressing (QC): 6 (met) Lower Body Dressing (QC): 6 (met) On/Off Footwear (QC): 6 (met) Additional Goals: 1-Demonstrate ADL Tasks, 2-Verbalize Understanding, 3- ImproveStrength/Danay 1=Demonstrate adherence to instructed precautions during ADL tasks. 2=Patient will verbalize/demonstrate understanding of assistive devices/modifications for ADL. 3=Patient will improve strength/tolerance for activity to enable patient to perform ADL's. OT Education/Plan Problem List/Assessment Assessment: Decreased Activ Tolerance, Decreased UE Strength, Impaired I ADL's Pt would benefit from skilled OT to increase his independence in basic self care to allow him to safely return home to live with family. Discharge Recommendations Plan/Recommendations: Continue POC Treatment Plan/Plan of Care Patient would benefit from OT for education, treatment and training to promote independence in ADL's, mobility, safety and/or upper extremity function for ADL's. Plan of Care: ADL Retraining, Caregiver Training, Functional Mobility, Group Exercise/Act as Ind (education, exercise, coordination, funct mobility, socialization), UE Funct Exercise/Act, UE Neuromus Re-Ed/Coord Treatment Duration: Sep 04, 2020 Frequency: At least 5 of 7 days/Wk (IRF) Estimated Hrs Per Day: 1.5 hours per day Rehab Potential: Good Time/GCodes Start Time: 09:00 Stop Time: 10:00 Total Time Billed (hr/min): 60 Billed Treatment Time 1, ADL 3 (40'), EX (20') SONYA SCHMIDT OT Aug 27, 2020 09:39
--- NOTE | 2020-08-27 13:35 | Occupational Ther Daily Note ---
OT Current Status-Daily Note Subjective Pt alert, lying in bed. Pt agrees to therapy. No c/o pain at this time. Mental Status/Objective Patient Orientation: Person, Place, Time, Situation ADL-Treatment Therapy Code Descriptions/Definitions Functional [place] Measure: 0=Not Assessed/NA 4=Minimal Assistance 1=Total Assistance 5=Supervision or Setup 2=Maximal Assistance 6=Modified [place] 3=Moderate Assistance 7=Complete IndependenceSCALE: Activities may be completed with or without assistive devices. 7-Ganurhbuka-glewmrj completes the activity by him/herself with no assistance from a helper. 5-Set-up or Clean-up Assistance-helper sets up or cleans up; patient completes activity. [place] assists only prior to or following the activity. 4-Supervision or Touching Assistance-helper provides verbal cues and/or touching/steadying and/or contact guard assistance as patient completes activity. Assistance may be provided throughout the activity or intermittently. 3-Partial/Moderate Assistance-helper does LESS THAN HALF the effort. [place] lifts, holds or supports trunk or limbs, but provides less than half the effort. 2-Substantial/Maximal Assistance-helper does MORE THAN HALF the effort. [place] lifts or holds trunk or limbs and provides more than half the effort. 3-Qomyrwioy-vpvbjf does ALL the effort. Patient does none of the effort to complete the activity. Or, the assistance of 2 or more helpers is required for the patient to complete the activity. If activity was not attempted, code reason: 7-Patient Refused. 9-Not Applicable-not attempted and the patient did not perform the activity before the current illness, exacerbation or injury. 10-Not Attempted due to Environmental Limitations-(lack of equipment, weather restraints, etc.). 88-Not Attempted due to Medical Conditions or Safety Concerns. Other Treatment Pt ambulated to therapy gym to complete B UE strengthening for gross and fine motor daily functional tasks. While standing, pt completed nut/bolt task with B UE's. Fine motor coordination and dexterity task to gain skills for buttoning, snapping and a variety of fine motor skills. After session, pt lying in bed with call light/phone in reach. All needs met in room. OT Short Term Goals Short Term Goals Time Frame: Aug 21, 2020 Eatin Oral hygiene: 4 Toileting hygiene: 4 Shower/bathe self: 4 Upper body dressin Lower body dressin Putting on/taking off footwear: 4 OT Equipment Engineer Goals Mcc Goals Time Frame: Sep 04, 2020 Eating (QC): 6 (met) Oral Hygiene (QC): 6 (met) Toileting Hygiene (QC): 6 (met) Shower/Bathe Self (QC): 6 (met) Upper Body Dressing (QC): 6 (met) Lower Body Dressing (QC): 6 (met) On/Off Footwear (QC): 6 (met) Additional Goals: 1-Demonstrate ADL Tasks, 2-Verbalize Understanding, 3- ImproveStrength/Danay 1=Demonstrate adherence to instructed precautions during ADL tasks. 2=Patient will verbalize/demonstrate understanding of assistive devices/modifications for ADL. 3=Patient will improve strength/tolerance for activity to enable patient to perform ADL's. OT Education/Plan Problem List/Assessment Assessment: Decreased UE Strength, Impaired Coordination (fine motor), Impaired Self-Care Skills Pt would benefit from skilled OT to increase his independence in basic self care to allow him to safely return home to live with family. Discharge Recommendations Plan/Recommendations: Continue POC Treatment Plan/Plan of Care Patient would benefit from OT for education, treatment and training to promote independence in ADL's, mobility, safety and/or upper extremity function for ADL's. Plan of Care: ADL Retraining, Caregiver Training, Functional Mobility, Group Exercise/Act as Ind (education, exercise, coordination, funct mobility, socialization), UE Funct Exercise/Act, UE Neuromus Re-Ed/Coord Treatment Duration: Sep 04, 2020 Frequency: At least 5 of 7 days/Wk (IRF) Estimated Hrs Per Day: 1.5 hours per day Rehab Potential: Good Time/GCodes Start Time: 12:30 Stop Time: 13:00 Total Time Billed (hr/min): 30 Billed Treatment Time 1 visit-EX 2 (30 min) ELLIOT BANUELOS Aug 27, 2020 13:35
--- NOTE | 2020-08-27 16:36 | Physical Therapy Daily Note ---
PT Daily Note-Current Subjective Pt laying Supine in bed upon arrival. Pt agrees to PT. Pain Location: No Pain Reported Mental Status Patient Orientation: Person, Place, Time, Situation Transfers SCALE: Activities may be completed with or without assistive devices. 1-Tgjxtkcmdj-qstaqiq completes the activity by him/herself with no assistance from a helper. 5-Set-up or Clean-up Assistance-helper sets up or cleans up; patient completes activity. [place] assists only prior to or following the activity. 4-Supervision or Touching Assistance-helper provides verbal cues and/or touching/steadying and/or contact guard assistance as patient completes activity. Assistance may be provided throughout the activity or intermittently. 3-Partial/Moderate Assistance-helper does LESS THAN HALF the effort. [place] lifts, holds or supports trunk or limbs, but provides less than half the effort. 2-Substantial/Maximal Assistance-helper does MORE THAN HALF the effort. [place] lifts or holds trunk or limbs and provides more than half the effort. 1-Cwbnreqyx-zfoyrx does ALL the effort. Patient does none of the effort to complete the activity. Or, the assistance of 2 or more helpers is required for the patient to complete the activity. If activity was not attempted, code reason: 7-Patient Refused. 9-Not Applicable-not attempted and the patient did not perform the activity be fore the current illness, exacerbation or injury. 10-Not Attempted due to Environmental Limitations-(lack of equipment, weather restraints, etc.). 88-Not Attempted due to Medical Conditions or Safety Concerns. Sit to Lying (QC): 6 Lying to Sitting/Side of Bed(Q: 6 Sit to Stand (QC): 6 Weight Bearing Full Weight Bearing Full Weight Bearing Gait Training Does the Patient Walk?: Yes Distance: 750' Walk 10 feet (QC): 6 Walk 50 ft with 2 Turns(QC): 6 Walk 150 ft (QC): 6 Gait Persons Needed: 0 Gait Assistive Device: FWW Exercises Supine Ex: Ankle pumps, Glut sets, Heel Slides, Short Arc Quads, Straight leg raise, Hip abd/add Supine Reps: 15 NuStep Minutes: 15 NuStep Workload: 5 Treatments Pt completes Supine Ex and uses NuStep as well as amb. extended distance on ARU and main floor of hospital. Pt returns to room to rest in bed with all needs met, call light in hand. Assessment Current Status: Good Progress Pt continues to improve with balance, activity tolerance and coordination. PT Short Term Goals Short Term Goals Time Frame: Aug 25, 2020 Roll Left & Right: 6 Sit to lyin Lying to sitting on side of be: 6 Sit to stand: 4 Chair/due-fi-ztmhe transfer: 4 Walk 150 feet: 4 PT Snf Goals Business Services Assistant Goals PT Business Services Assistant Goals Time Frame: Sep 08, 2020 Roll Left & Right (QC): 6 Sit to Lying (QC): 6 Lying-Sitting on Side/Bed(QC): 6 Sit to Stand (QC): 6 Chair/Bhs-xu-Cdwjp Xfer(QC): 6 Toilet Transfer (QC): 6 Car Transfer (QC): 6 Does the Patient Walk: Yes Walk 10 feet (QC): 6 Walk 50ft with 2 Turns (QC): 6 Walk 150 ft (QC): 6 Walking 10ft on Uneven Surface: 6 1 Step (curb) (QC): 6 4 Steps (QC): 6 12 Steps (QC): 4 Picking up an Object (QC): 4 Does the Pt use WC or Scooter?: No Wheel 50 feet with 2 turns (QC: 9 Wheel 150 feet: 9 PT Plan Treatment/Plan Treatment Plan: Continue Plan of Care Treatment Plan: Bed Mobility, Education, Functional Activity Danay, Functional Strength, Group Therapy, Gait, Safety, Therapeutic Exercise, Transfers Treatment Duration: Sep 08, 2020 Frequency: At least 5 of 7 days/Wk (IRF) Estimated Hrs Per Day: 1.5 hours per day Patient and/or Family Agrees t: Yes Time/GCodes Time In: 1430 Time Out: 1515 Total Billed Treatment Time: 45 Total Billed Treatment 1, GT x2 (25m) & EX (20m) ROSETTE ANGELO RESIDENT SERVICES SUPERVISOR Aug 27, 2020 16:35
[2020-08-27] MEDS: KCL 8 MEQ (MICRO K) TABLET PO SCH (17:46)
[2020-08-27] MEDS: ASCORBIC ACID (VIT C) 500 MG TABLET PO SCH (17:46)
[2020-08-27] MEDS: ACETAMINOPHEN 325 MG TABLET PO PRN ×2 (18:00→20:10)
[2020-08-27] MEDS: VITAMIN D3 25 MCG (1,000 UNITS) TABLET PO SCH (19:57)
[2020-08-27 20:00] VITALS: BP 132/63
[2020-08-28] MEDS ORDERED: AMLO-250 PO (05:49)
[2020-08-28] MEDS ORDERED: FOLI1TAB33 PO (05:49)
--- NOTE | 2020-08-28 05:50 | D/C HH Face to Face Order ---
D/C Face to Face Orders Reconcile Patient Problems Problems Reviewed?: Yes Instructions for Patient [facility] Patient Instructions/FollowUp: PCP in 1 week Physician to follow Patient: PCP Discharge Diet for Home: No Restrictions Patient Problems: Hemorrhagic stroke Alcoholism Patient Data-Allergies,Ht & Wt Patient Allergies: Coded Allergies: No Known Drug Allergies (Unverified , 08/12/20) Home Health Need/Face to Face Date of Face to Face: Aug 28, 2020 Clinical Findings: Generalized weakness and fatigue, Instability, Muscle weakness, Unsteady gait I have seen Pt vtae-pp-pjvz: Yes Discharged To: Home Diagnosis/Conditions: Hemorrhagic stroke Patient is Homebound due to: [place] fall risk due to instabilty, Muscle weakness Homebound Status Due to the above stated illness, injury or surgical procedure (medical condition or diagnosis) and associated clinical findings, the patient is homebound because of his/her inability to leave home except with aid of a supportive device and/or person AND leaving the home requires a considerable and taxing effort or is medically contraindicated. Pt req the following assistanc: Walker Home Health Nursing Orders Home Health Services Order: Nursing Services, Contracting Analyst-Evaluate & Treat, Physical Therapy-Evaluate & Treat Certify Stmt I certify that this patient is under my care and that I, a nurse practitioner or a physician; a bacteriology research assistant working with me, had a face to face encounter that - meets the physician face to face encounter requirements with this patient as dated. CARMEN SALINAS DO Aug 28, 2020 05:50
--- NOTE | 2020-08-28 05:50 | Discharge Summary ---
Diagnosis/Chief Complaint Date of Admission Aug 18, 2020 at 12:30 Date of Discharge Discharge Date: Aug 28, 2020 Discharge Diagnosis Assessment: Hemorrhagic stroke Generalized weakness Alcoholism Hypothyroidism Oral tobacco use Advanced age Fall risk Plan: Inpatient rehab protocol Monitor labs Home meds Fall risk 08/19/2020: Continue protocol Monitor elevated liver enzymes from alcoholic hepatitis Await GGT added to labs 08/20/2020: Continue triamcinolone for nonspecific dermatitis on the back Continue inpatient rehab protocol Fall risk GGT significantly elevated at 485 consistent with alcoholism 08/21/2020: Continue therapy Cessation of oral tobacco counseled Monitor blood pressure closely Monitor for alcoholism effects 08/22/2020: Patient much improved Participating in therapy 08/23/2020: Monitor closely Monitor for falls Very impulsive 08/24/2020: Supportive care Tylenol for pain Fall risk 08/25/2020: Supportive care Intense therapy Monitor closely 08/26/20: Doing well DC 08/2808/27/2020: Prepare for discharge tomorrow (1) CVA (cerebral vascular accident) (2) Hypothyroidism (3) Intracerebellar and posterior fossa hemorrhage Status: Acute (4) Chronic alcohol use Status: Acute (5) Generalized weakness Status: Acute Discharge Summary Discharge Physical Examination Allergies: Coded Allergies: No Known Drug Allergies (Unverified , 08/12/20) Vitals & I&Os Vital Signs Date Time Temp Pulse Resp B/P (MAP) Pulse Ox O2 Delivery O2 Flow Rate FiO2 08/28/20 10:30 36.6 65 16 146/70 93 Room Air General Appearance: Alert, Oriented X3, Cooperative Respiratory: Clear to Auscultation Cardiovascular: Regular Rate Neuro: Normal Gait, Normal Speech, Strength at 5/5 X4 Ext Hospital Course Was the Problem List Reviewed?: Yes Patient had an uneventful hospital course and rehab. He did not have any alcohol withdrawal although his labs revealed alcoholic hepatitis. He was able to work with therapy aggressively and return back to near baseline function with the use of a walker and other assistive devices and he had no decompensation or clinical changes while he was hospitalized and was able to be discharged in improved condition home with his . Labs (last 24 hrs) Laboratory Tests 08/19/20 05:04: White Blood Count 6.7, Red Blood Count 4.25L, Hemoglobin 14.9, Hematocrit 44, Mean Corpuscular Volume 103H, Mean Corpuscular Hemoglobin 35H, Mean Corpuscular Hemoglobin Concent 34, Red Cell Distribution Width 12.1, Platelet Count 225, Mean Platelet Volume 10.3, Immature Granulocyte % (Auto) 1, Neutrophils (%) (Auto) 65, Lymphocytes (%) (Auto) 20, Monocytes (%) (Auto) 13H, Eosinophils (%) (Auto) 2, Basophils (%) (Auto) 1, Neutrophils # (Auto) 4.3, Lymphocytes # (Auto) 1.3, Monocytes # (Auto) 0.9, Eosinophils # (Auto) 0.1, Basophils # (Auto) 0.0, Immature Granulocyte # (Auto) 0.0, Sodium Level 139, Potassium Level 3.9, Chloride Level 96L, Carbon Dioxide Level 30, Anion Gap 13, Blood Urea Nitrogen 11, Creatinine 1.24, Estimat Glomerular Filtration Rate 56, BUN/Creatinine Ratio 9, Glucose Level 95, Calcium Level 9.9, Corrected Calcium 9.9, Total Bilirubin 1.6H, Gamma Glutamyl Transpeptidase 485H, Aspartate Amino Transf (AST/SGOT) 94H, Alanine Aminotransferase (ALT/SGPT) 68H, Alkaline Phosphatase 143H, Total Protein 7.6, Albumin 4.0 08/24/20 05:16: White Blood Count 7.2, Red Blood Count 4.40, Hemoglobin 15.3, Hematocrit 45, Mean Corpuscular Volume 102H, Mean Corpuscular Hemoglobin 35H, Mean Corpuscular Hemoglobin Concent 34, Red Cell Distribution Width 11.9, Platelet Count 275, Mean Platelet Volume 9.9, Immature Granulocyte % (Auto) 0, Neutrophils (%) (Auto) 62, Lymphocytes (%) (Auto) 27, Monocytes (%) (Auto) 8, Eosinophils (%) (Auto) 3, Basophils (%) (Auto) 1, Neutrophils # (Auto) 4.4, Lymphocytes # (Auto) 1.9, Monocytes # (Auto) 0.6, Eosinophils # (Auto) 0.2, Basophils # (Auto) 0.0, Immature Granulocyte # (Auto) 0.0, Sodium Level 139, Potassium Level 3.5L, Chloride Level 98, Carbon Dioxide Level 28, Anion Gap 13, Blood Urea Nitrogen 9, Creatinine 1.13, Estimat Glomerular Filtration Rate > 60, BUN/Creatinine Ratio 8, Glucose Level 103, Calcium Level 9.6, Corrected Calcium 9.7, Total Bilirubin 0.8, Gamma Glutamyl Transpeptidase 334H, Aspartate Amino Transf (AST/SGOT) 71H, Alanine Aminotransferase (ALT/SGPT) 74H, Alkaline Phosphatase 121, Total Protein 7.2, Albumin 3.9, Prothrombin Time 13.3, INR Comment 1.0, Ammonia 29 Pending Labs Laboratory Tests 08/19/20 05:04: White Blood Count 6.7, Red Blood Count 4.25, Hemoglobin 14.9, Hematocrit 44, Mean Corpuscular Volume 103, Mean Corpuscular Hemoglobin 35, Mean Corpuscular Hemoglobin Concent 34, Red Cell Distribution Width 12.1, Platelet Count 225, Mean Platelet Volume 10.3, Immature Granulocyte % (Auto) 1, Neutrophils (%) (Auto) 65, Lymphocytes (%) (Auto) 20, Monocytes (%) (Auto) 13, Eosinophils (%) (Auto) 2, Basophils (%) (Auto) 1, Neutrophils # (Auto) 4.3, Lymphocytes # (Auto) 1.3, Monocytes # (Auto) 0.9, Eosinophils # (Auto) 0.1, Basophils # (Auto) 0.0, Immature Granulocyte # (Auto) 0.0, Sodium Level 139, Potassium Level 3.9, Chloride Level 96, Carbon Dioxide Level 30, Anion Gap 13, Blood Urea Nitrogen 11, Creatinine 1.24, Estimat Glomerular Filtration Rate 56, BUN/Creatinine Ratio 9, Glucose Level 95, Calcium Level 9.9, Corrected Calcium 9.9, Total Bilirubin 1.6, Gamma Glutamyl Transpeptidase 485, Aspartate Amino Transf (AST/SGOT) 94, Alanine Aminotransferase (ALT/SGPT) 68, Alkaline Phosphatase 143, Total Protein 7.6, Albumin 4.0 08/24/20 05:16: White Blood Count 7.2, Red Blood Count 4.40, Hemoglobin 15.3, Hematocrit 45, Mean Corpuscular Volume 102, Mean Corpuscular Hemoglobin 35, Mean Corpuscular Hemoglobin Concent 34, Red Cell Distribution Width 11.9, Platelet Count 275, Mean Platelet Volume 9.9, Immature Granulocyte % (Auto) 0, Neutrophils (%) (Auto) 62, Lymphocytes (%) (Auto) 27, Monocytes (%) (Auto) 8, Eosinophils (%) (Auto) 3, Basophils (%) (Auto) 1, Neutrophils # (Auto) 4.4, Lymphocytes # (Auto) 1.9, Monocytes # (Auto) 0.6, Eosinophils # (Auto) 0.2, Basophils # (Auto) 0.0, Immature Granulocyte # (Auto) 0.0, Sodium Level 139, Potassium Level 3.5, Chloride Level 98, Carbon Dioxide Level 28, Anion Gap 13, Blood Urea Nitrogen 9, Creatinine 1.13, Estimat Glomerular Filtration Rate > 60, BUN/Creatinine Ratio 8, Glucose Level 103, Calcium Level 9.6, Corrected Calcium 9.7, Total Bilirubin 0.8, Gamma Glutamyl Transpeptidase 334, Aspartate Amino Transf (AST/SGOT) 71, Alanine Aminotransferase (ALT/SGPT) 74, Alkaline Phosphatase 121, Total Protein 7.2, Albumin 3.9, Prothrombin Time 13.3, INR Comment 1.0, Ammonia 29 Discharge Home Medications: Active Scripts Active Folic Acid 1 Mg Tablet 1 Mg PO DAILY Amlodipine Besylate 5 Mg Tablet 5 Mg PO DAILY Reported Metoprolol Succinate 25 Mg Tab.er.24h 25 Mg PO DAILY Vitamin B Complex 1 Each Tablet 1 Each PO HS Synthroid (Levothyroxine Sodium) 100 Mcg Tablet 100 Mcg PO DAILY Potassium Gluconate 595 MG (Potassium Gluconate) 99 Mg Tablet 99 Mg PO BID Hydrochlorothiazide 25 Mg Tablet 12.5 Mg PO DAILY TAKES OF A 25MG Glucosamine & Chondroitin Cap ([place] 2Kcl/Chondroitin Grnade) 1 Each Capsule 1 Each PO HS Neurontin (Gabapentin) 600 Mg Tablet 600 Mg PO BID LAST FILLED 09-14-2019 #270/135 DAY SUPPLY Multivitamin 1 Each Tablet 1 Each PO HS Vitamin B-12 (Cyanocobalamin (Vitamin B-12)) 500 Mcg Tablet 500 Mcg PO DAILY Vitamin D3 (Cholecalciferol (Vitamin D3)) 25 Mcg Capsule 25 Mcg PO HS Atorvastatin Calcium 40 Mg Tablet 40 Mg PO HS Vitamin C (Ascorbic Acid) 500 Mg Tablet 500 Mg PO HS Instructions to patient/family Please see electronic discharge instructions given to patient. Diagnosis/Problems Diagnosis/Problems (1) CVA (cerebral vascular accident) (2) Hypothyroidism (3) Intracerebellar and posterior fossa hemorrhage Status: Acute (4) Chronic alcohol use Status: Acute (5) Generalized weakness Status: Acute CARMEN SALINAS DO Aug 28, 2020 05:50
[2020-08-28] MEDS: MULTIVIT W/MINERALS TAB (THERAGRAN M) PO SCH (06:11)
[2020-08-28] MEDS: LEVOTHYROXINE 100 MCG (LEVOTHROID) TAB PO SCH (06:11)
[2020-08-28] MEDS: CYANOCOBALAMIN 1,000 MCG (VITAMIN B-12) TABLET PO SCH (06:12)
[2020-08-28 07:06] VITALS: BP 146/70
[2020-08-28] MEDS: SENNA W/DOCUSATE (SENOKOT S) TABLET PO SCH (08:01)
[2020-08-28] MEDS: FOLIC ACID 1 MG TAB PO SCH (08:01)
[2020-08-28] MEDS: ACETAMINOPHEN 325 MG TABLET PO PRN (08:01)
[2020-08-28] MEDS: amLODIPine 5 MG (NORVASC) TAB PO SCH (08:01)
[2020-08-28] MEDS: GABAPENTIN 600 MG (NEURONTIN) TAB PO SCH (08:02)
[2020-08-28] MEDS: DOCUSATE SODIUM 100 MG (COLACE) CAP PO SCH (08:02)
[2020-08-28] MEDS: polyethylene glycoL POWDER 17 GM (MIRALAX) PACK PO SCH (08:10)
[2020-08-28 10:30] VITALS: BP 146/70
--- NOTE | 2020-08-28 15:16 | Therapy Team Discharge Summary ---
Therapy Discharge Summary Discharge Recommendations Date of Discharge Aug 28, 2020 at 10:30 Occupational Therapy Pt admitted to ARU with R intracerebral hemmorrhage of cerebellum with intrav entricular hemorrhage. At OF, he was IND with all ADLS and functional mobility and still driving. Upon initial evaluation, pt independent with oral care and eating, SBA showering, set up upper body dressinhg, CGA lower body dressing, set up assist footwear and CGA toileting. OT txs focused on increasing BUE strength and activity tolerance, fine motor coordination, and increasing safety and independence with ADLs and functional mobility. Pt made good progress towards goals, meeting all LTGs and IND with all ADLs. No AE/DME recommendations at this time. Pt discharged from facility, d/c from OT. Decreased UE Strength, Impaired Coordination (fine motor), Impaired Self-Care Skills PT Maintenance Controller Goals Maintenance Controller Goals PT Maintenance Controller Goals Time Frame: Sep 08, 2020 Roll Left to Right (QC): 6 Sit to Lying (QC): 6 Lying-Sitting on Side/Bed(QC): 6 Sit to Stand (QC): 6 Chair/Kvm-xc-Nwjgo Xfer(QC): 6 Car Transfer (QC): 6 Does the Patient Walk: Yes Walk 10 feet (QC): 6 Walk 10ft-Uneven Surface(QC): 6 Walk 50ft with 2 Turns (QC): 6 Walk 150 ft (QC): 6 Does the Pt use WC or Scooter?: No Wheel 50 feet with 2 turns (QC: 9 1 Step (curb) (QC): 6 4 Steps (QC): 6 12 Steps (QC): 4 Picking up an Object (QC): 4 OT Maintenance Controller Goals Maintenance Controller Goals Time Frame: Sep 04, 2020 Eating (FIM): 6 Eating (QC): 6 (met) Oral Hygiene (QC): 6 (met) Shower/Bathe Self (QC): 6 (met) Upper Body Dressing (QC): 6 (met) Lower Body Dressing (QC): 6 (met) On/Off Footwear (QC): 6 (met) Toileting(FIM): 6 Toileting Hygiene (QC): 6 (met) Toilet/Commode Transfer (QC): 6 Additional Goals: 1-Demonstrate ADL Tasks, 2-Verbalize Understanding, 3- ImproveStrength/Danay 1=Demonstrate adherence to instructed precautions during ADL tasks. 2=Patient will verbalize/demonstrate understanding of assistive devices/modifications for ADL. 3=Patient will improve strength/tolerance for activity to enable patient to perform ADL's. SONYA SCHMIDT OT Aug 28, 2020 15:16
--- NOTE | 2020-08-28 15:17 | Therapy Team Discharge Summary ---
Therapy Discharge Summary Discharge Recommendations Date of Discharge Aug 28, 2020 at 10:30 Physical Therapy Patient came to rehab with Right cerebellar hemorrhage. Upon evaluation patient performed bed mobility and supine <-> sit with SBA, sit <-> stand and transfers with min assist, car transfer CGA, ambulated 150' with a rolling walker with min assist (including 50' with at least 2 turns of 90 degrees and 10' over an uneven surface). Patient has been performing bed mobility and transfer training, balance and endurance training, functional strengthening, stair training, gait training, and education. Patient has made good progress and has met all of his shelter goals except for bending over to nut picker an object from the floor because it makes him dizzy. Now, patient performs bed mobility and transfers with independence, car transfer independent, ambulates over 150' with a rolling walker with independence (including 50' with at least 2 turns of 90 degrees and 10' over an uneven surface), and can go up and down 12 steps using 2 handrails with setup. Patient has been discharged from this facility today and will be discharged from PT at this time. Occupational Therapy Decreased UE Strength, Impaired Coordination (fine motor), Impaired Self-Care Skills PT Half-Way Goals Mineral Surveyor Goals PT Mineral Surveyor Goals Time Frame: Sep 08, 2020 Roll Left to Right (QC): 6 Sit to Lying (QC): 6 Lying-Sitting on Side/Bed(QC): 6 Sit to Stand (QC): 6 Chair/Knq-tg-Gvnde Xfer(QC): 6 Car Transfer (QC): 6 Does the Patient Walk: Yes Walk 10 feet (QC): 6 Walk 10ft-Uneven Surface(QC): 6 Walk 50ft with 2 Turns (QC): 6 Walk 150 ft (QC): 6 Does the Pt use WC or Scooter?: No Wheel 50 feet with 2 turns (QC: 9 1 Step (curb) (QC): 6 4 Steps (QC): 6 12 Steps (QC): 4 Picking up an Object (QC): 4 OT Half-Way Goals Half-Way Goals Time Frame: Sep 04, 2020 Eating (FIM): 6 Eating (QC): 6 (met) Oral Hygiene (QC): 6 (met) Shower/Bathe Self (QC): 6 (met) Upper Body Dressing (QC): 6 (met) Lower Body Dressing (QC): 6 (met) On/Off Footwear (QC): 6 (met) Toileting(FIM): 6 Toileting Hygiene (QC): 6 (met) Toilet/Commode Transfer (QC): 6 Additional Goals: 1-Demonstrate ADL Tasks, 2-Verbalize Understanding, 3- ImproveStrength/Danay 1=Demonstrate adherence to instructed precautions during ADL tasks. 2=Patient will verbalize/demonstrate understanding of assistive devices/modifications for ADL. 3=Patient will improve strength/tolerance for activity to enable patient to perform ADL's. YAEL RAMIREZ PT Aug 28, 2020 15:17
== END 2020-08-28 10:30 | disposition home health service (06) | DRG 57 ==
PROVIDERS: ADMIT Internal Medicine; ATTEND Internal Medicine
DX: I69.298 Other sequelae of other nontraumatic intracranial hemorrhage (principal); R26.89 Other abnormalities of gait and mobility; R53.1 Weakness; Z91.81 History of falling; K70.10 Alcoholic hepatitis without ascites; F10.20 Alcohol dependence, uncomplicated; L30.9 Dermatitis, unspecified; E89.0 Postprocedural hypothyroidism; F17.220 Nicotine dependence, chewing tobacco, uncomplicated; Z85.850 Personal history of malignant neoplasm of thyroid
CPT/HCPCS: 36415; 80053; 82140; 82977; 85025; 85610

== ENCOUNTER → 2022-05-27 | Outpatient (CLI) | payer MEDICARE, OTHER ==
[~2022-05-27] MED LIST changes: -ALPRAZolam 0.25 MG (XANAX) TAB PO PRN; -BISACODYL 10 MG SUPP (DULCOLAX) PR PRN; -CALCIUM CARBONATE 500 MG (TUMS) TAB.CHEW PO PRN; -DOCUSATE SODIUM 100 MG (COLACE) CAP PO PRN; -FLEET ENEMA ADULT 1 EA BTL PR PRN; -HYDROcodone/APAP 5 MG/325 MG (LORTAB) TAB PO PRN; -LACTULOSE SYRUP 10GM/15ML (ENULOSE) 30ML UDC PO PRN; -LOPERAMIDE 2 MG (IMODIUM) TABLET PO PRN; -MELATONIN 3 MG TABLET PO PRN; +MTP25TSR PO; -ONDANSETRON 4 MG (ZOFRAN) ORAL DISSOLVE TAB PO PRN; -diphenhydrAMINE 25 MG TAB (BENADRYL) PO PRN; -guaiFENesin/CODEINE (ROBITUSSIN AC) 10ML UDC PO PRN
--- NOTE | 2022-05-27 09:33 | Diagnostic Imaging Report ---
INDICATION: Left upper quadrant fullness. PROCEDURE: Ultrasound abdomen complete. TECHNIQUE: Multiple real-time grayscale images were obtained of the abdomen in various projections. COMPARISON: None FINDINGS: Imaged portions of the pancreas appear normal. The aorta and IVC are not well seen due to bowel gas. The liver appears to have normal echogenicity. There is no intrahepatic biliary dilatation or focal liver lesion seen. The common bile duct is not seen due to bowel gas. The gallbladder wall is not thickened. There are multiple stones and sludge in the gallbladder. This includes echogenic foci at the fundus, which may represent adherent stones. Sonographic Jones sign is negative. The right kidney measures 10.7 cm in length and the left measures 10.5 cm in length. There is a cyst in the left kidney which is exophytic off the superior pole, and measures up to 7.7 cm. The spleen measures 8.8 cm and appears normal. No free fluid is seen. IMPRESSION: 1. Large simple appearing cyst at the superior left kidney measuring up to 7.7 cm. 2. Cholelithiasis. Dictated by: Dictated on workstation # [id number]
== END ==
LOC: RAD 06:45
PROVIDERS: ATTEND Family Medicine
DX: K80.20 Calculus of gallbladder without cholecystitis without obstruction (principal); N28.1 Cyst of kidney, acquired
CPT/HCPCS: 76700